=== PATIENT | male | born 1945 | race Caucasian/White ===

== ENCOUNTER 2025-01-19 17:41 | Observation (INO) | payer MEDICARE, OTHER, SELFPAY ==
[2025-01-19] VITALS (10 sets, daily range): BP systolic 111–161; BP diastolic 54–91
--- NOTE | 2025-01-19 11:30 | EDRN ---
Adele Kumar PA in to see pt,.
--- NOTE | 2025-01-19 12:31 | ED.GENMED ---
History of Present Illness
General
Chief Complaint: Malaise
Source: patient
Time Seen by Provider: 01/19/25 11:27
History of Present Illness
History of Present Illness:
79-year-old male with past medical history of atrial fibrillation presenting to the emergency department for evaluation at the request of his primary care provider after patient has been having low-grade fevers for the last week, gradually worsening
malaise and fatigue to the point where patient was having trouble even walking which started over the last 24 hours. Patient reports fever Tmax around 100.4 but has been taking Motrin and ibuprofen every 4-6 hours to stay ahead of the fever there
are no other associated symptoms including URI-like symptoms, nausea, vomiting, abdominal pain, urinary symptoms, bowel changes, chest pain. Patient reports no known sick contacts, recent travel or recent antibiotics. Patient did have COVID about
a month and a half ago. 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 Patient is anticoagulated on Eliquis and reports good with this.
Past History
Past History
ED Past Medical History: Arrthythmia
ED Past Surgical History: None
Social History
Tobacco: Non-smoker
Alcohol: None
Drug: None
Personal:
Living: with family
Review of Systems
Review of Systems
All Other Systems: ROS reviewed and negative except as documented in HPI and ROS
Phy Exam
Physical Exam
Physical Exam:
GENERAL: Alert , in no apparent distress
EYE: pupils equal and reactive
NECK: Supple
ENT: o/p clr, mmm.
CARDIAC: Irregularly irregular, rate controlled between 75 and 86 bpm
LUNGS: Clear breath sounds bilaterally, no acute respiratory distress, no wheezes/rales/rhonchi
ABDOMEN: Soft, without focal tenderness, no r/g, no cvat
NEUROLOGICAL: Alert and oriented
SKIN: Warm and dry, skin intact.
MUSCULOSKELETAL: No edema, well perfused.
PSYCH: Normal and appropriate interaction.
Scores
Heart Failure Risk
Heart Failure Risk Score: Not Applicable
Heart Score for Chest Pain Patients
STEMI patient?: Not applicable
Withdrawal Assessment of Alcohol
Withdrawal Assessment Completed?: Not applicable
Course
Orders/Labs/Results
Orders:
Orders
01/19/25 10:50
Electrocardiogram (*1) Urgent
Reason for Study: Chest Pain
EKG- Treatment ONCE
01/19/25 11:47
Urinalysis Reflex To Culture Urgent
Date Specimen was Collected: 01/19/25
Time Specimen was Collected: 14:33
01/19/25 11:48
CR Chest - 2 Views Urgent
Comment:
Reason For Exam: fever, malaise
01/19/25 12:32
COVID-19 Antigen Urgent
Source: Nasal Swab
Complete Blood Count/With Diff Urgent
Comprehensive Metabolic Panel Urgent
Lactic Acid Q4H
Comment: CANCEL 2nd LACTIC ACID IF 1st LACTIC ACID IS LESS THAN 2
Magnesium Urgent
Comment: ADD ON
TSH Urgent
Blood Culture Q30M
SERVANDO Source: Blood/Venous
Specimen Description:
Influenza A+B Rapid Molecular Urgent
SERVANDO Source: Nasal Swab
Specimen Description:
01/19/25 14:11
Blood Culture Q30M
SERVANDO Source: Blood/Venous
Specimen Description:
01/19/25 15:31
0.9% Sodium Chloride 1000 ml [Nss] 1,000 ml IV BOLUS
01/19/25 16:08
Abdomen/Pelvis w Contrast CT [CT Abd/pelvis W Iv Cont] Urgent
Comment: With IV and oral contrast
Reason For Exam: Fever, diarrhea
01/19/25 16:09
Add On- LAB Urgent
Tests Added?: magnesium
Serum Osmolality Routine
Urine Osmolality Random [Osmolality, Random Urine] Routine
Urine Sodium Routine
STOOL [C difficile Antigen & Toxins] Routine
SERVANDO Source: Feces/Stool
Specimen Description:
Stool Culture Routine
SERVANDO Source: Feces/Stool
Specimen Description:
Stool For WBC Routine
SERVANDO Source: Feces/Stool
Specimen Description:
01/19/25 16:15
0.9% Sodium Chloride 1000 ml [Nss] 1,000 ml IV 80 mls/hr
01/20/25 06:00
TSH Reflex To Free T4 IN AM
Abnormal Lab Results
01/19/25
12:32
Absolute Lymphs (auto) 1.0 L 10^3/uL
(1.2-3.4)
Absolute Monos (auto) 1.0 H 10^3/uL
(0.1-0.6)
Lymphocytes % 13.5 L %
(20.5-51.1)
Monocytes % 13.3 H %
(1.7-9.3)
Sodium 127 L mmol/L
(135-145)
Chloride 94 L mmol/L
(98-107)
Glucose 106 H mg/dl
(70-99)
Total Bilirubin 1.8 H mg/dl
(0.2-1.3)
ALT 66 H U/L
(0-50)
01/19/25 12:32
01/19/25 12:32
Vital Signs
Initial and Last Documented VS:
Initial Vital Signs
Temp Pulse Resp BP Pulse Ox
98.0 F 86 16 118/76 98
01/19/25 10:57 01/19/25 10:57 01/19/25 10:57 01/19/25 10:57 01/19/25 10:57
Last Documented Vital Signs
Temp Pulse Resp BP Pulse Ox
98.0 F 82 23 111/54 98
01/19/25 10:57 01/19/25 15:15 01/19/25 15:15 01/19/25 15:00 01/19/25 15:00
MDM/Problems Addressed
Differential Diagnosis Includes:
COVID, flu, other viral etiology, pneumonia, urinary tract infection, electrolyte derangement, malignancy
MDM/Problems Addressed:
79-year-old male presenting the ER for evaluation of low-grade fevers and generalized malaise over the last week. Over the last 24 hours patient has had some difficulty ambulating due to his weakness. Patient hemodynamically stable here and in no
acute distress. Will check labs including lactic acid and blood cultures. Chest x-ray and urine ordered. Disposition pending.
Chronic conditions affecting care: Arrhythmia
*Pulse Oximetry
Patient hypoxic: no
*Assistant Professor Sculpture Interpretation
Rate: normal
Rhythm: sinus
*Critical Care Note
Total Time (30-74mins, 75-104mins- exclusive of procedures): Not Applicable
Patient Management
Discussion with other providers: Hospitalist
Escalation/DeEscalation of care consider admission/obs:
Patient work up shows normal WBC and hgb. Na+ 127. Urine and CXR negative. Patient unable to ambulate and while attempting to get him to the bathroom patient nearly fell while trying to ambulate on his own. Due to the reported fevers,
weakness/inabiity to ambulate, Na+ 127, will admit for further evaluation and treatment
ED Attending Note
-
Portions of this chart may have been created with voice recognition software.� Occasional wrong word or��sound alike� substitutions may have occurred due to the inherent limitations of voice recognition software.
Discharge Plan
Departure
Patient Disposition: Admit
Date of Disposition: 01/19/25
Time of Disposition: 15:13
Presentation/result/management discussed w/ accepting MD/DO: Hospitalist
Discharge Problem:
Metabolic encephalopathy, Fever, Hyponatremia
Prescriptions:
No Action
atorvastatin [Lipitor] 40 mg Tablet
40 mg PO QPM
amiodarone 200 mg Tablet
200 mg PO BID
spironolacton-hydrochlorothiaz 25-25 mg tablet
1 tab PO DAILY
propranolol 60 mg capsule,extended release 24 hr
180 mg PO DAILY
hydralazine 25 mg Tablet
25 mg PO BID
tamsulosin 0.4 mg capsule
0.8 mg PO QPM
olmesartan [Benicar] 40 mg Tablet
40 mg PO DAILY
potassium citrate 15 mEq tablet extended release
30 meq PO BID
Lumigan 0.01 % Drops
1 drp BOTH EYES HS
Eliquis 5 mg Tablet
5 mg PO BID
acetaminophen [Tylenol Extended Release] 650 mg Tablet Extended Release
1,300 mg PO Q12H
Referrals:
UNKNOWN - PT DOES,NOT KNOW [Unknown Provider]
Interventions
Interventions:
*Risk Screen - Suicide Last Done: 01/19/25 10:57
*General Assessment Last Done: 01/19/25 13:20
*Neglect/Abuse Screening Last Done: 01/19/25 10:57
*ED- Fall Risk Assessment Last Done: 01/19/25 12:53
*ED COVID-19 Vaccine History Last Done: 01/19/25 12:53
Discharge Date and Time
Print Language: LAO
[2025-01-19 12:46] LABS: % Basophils 0.7 % (0-2); % Eosinophils 5.9 % (0-6); % Immature Granulocytes 0.4 % (0-0.5); % Lymphocytes 13.5 % (20.5-51.1); % Monocytes 13.3 % (1.7-9.3); % Neutrophils 66.2 % (42.2-75.2); Absolute Basophils 0.1 10^3/uL (0-0.2); Absolute Eosinophils 0.5 10^3/uL (0-0.7); Hemoglobin 16.5 g/dL (13.0-18.0); Mean Corp Hgb Conc. 34.4 g/dL (33.0-37.0); Mean Corpuscular Hgb 30.8 pg (27.0-31.0); Mean Corpuscular Volume 89.7 fL (80.0-94.0); Mean Platelet Volume 8.9 fL (7.4-10.4); Nucleated Red Blood Cells % 0 % (-); Platelet Count 346 10^3/uL (130-400); Red Blood Cell Count 5.35 10^6/uL (4.70-6.10); Red Cell Dist. Width 13.2 % (11.5-14.5); White Blood Cell Count 7.6 10^3/uL (4.8-10.8)
[2025-01-19 12:56] LABS: Lactic Acid 1.1 mmol/L (0.7-2.0)
[2025-01-19 13:08] LABS: COVID-19 Antigen Negative (Negative)
[2025-01-19 13:12] LABS: ALT (SGPT) 66 U/L (0-50); AST (SGOT) 25 U/L (17-59); Albumin 4.2 g/dl (3.5-5.0); Alkaline Phosphatase 56 U/L (38-126); Blood Urea Nitrogen 17 mg/dl (9-20); Calcium 8.9 mg/dl (8.4-10.2); Carbon Dioxide 26 mmol/L (22-30); Chloride 94 mmol/L (98-107); Estimated Creatinine Clearance 74 ml/min; Glucose 106 mg/dl (70-99); Potassium 4.8 mmol/L (3.5-5.1); Sodium 127 mmol/L (135-145); Total Bilirubin 1.8 mg/dl (0.2-1.3); Total Protein 6.4 g/dl (6.3-8.2); eGFR > 60.00
[2025-01-19 13:39] LABS: TSH 1.36 uIU/ml (0.47-4.68)
--- NOTE | 2025-01-19 13:56 | EDRN ---
Pt per Adele Garcia PA able to take his medications, drink and have crackers. Will attempt urine spec after taking his meds.
--- NOTE | 2025-01-19 14:14 | EDRN ---
Adele Hathaway PA in to see pt.
--- NOTE | 2025-01-19 14:47 | EDRN ---
Pt had ambulated to BR w/ daughter and spouse and per daughter was unsteady and almost fell. On return to stretcher, pt was very unsteady and needed to hold each hand on each one of my arms like a walker to steady his gait. On arising from toilet
this RN caught pt prior to him falling backwards once getting up on his feet. Pt was very unsteady, even at sink when washing hands. Pt had large loose BM on toilet, diarrhea like.
[2025-01-19 14:52] LABS: Urine Albumin Negative (Neg - Trace); Urine Bilirubin Negative (Negative); Urine Character Clear (Clear); Urine Color Yellow; Urine Glucose Negative (Negative); Urine Ketone Negative (Negative); Urine Leukocyte Negative (Negative); Urine Nitrite Negative (Negative); Urine Occult Blood Negative (Negative); Urine Urobilinogen Negative (Neg - 1+)
--- NOTE | 2025-01-19 15:05 | EDRN ---
Pt ambulated to BR w/ max assist of 2 to void and move his bowels. Pt per his daughter almost fell enroute to BR.
--- NOTE | 2025-01-19 15:06 | EDRN ---
Adele VELA was informed pt unable to ambulate safely to BR and lots of stairs in home. He said he will admit.
--- NOTE | 2025-01-19 15:33 | HPS.HSE ---
Family Physician
-
Family Physician: Chace Bonds
Chief Complaint
-
Low-grade fevers x 1 week, 1 episode of watery black stool, ambulatory dysfunction
History of Present Illness
79-year-old male sent by his PCP to the ER after reporting low-grade fevers for the past week along with watery black stool once a day but is on iron, malaise and fatigue with inability to walk over the past 24 hours. He reports a Tmax of 100.4 F
however he has been taking 1000 mg of Tylenol scheduled every 4-6 hours for the past week to stay on top of the fever. I made patient aware of this is the same medication. He denies headache, sore throat, runny nose, abdominal pain, nausea,
vomiting, diarrhea, urinary symptoms, chest pain, palpitations, shortness of breath. He denies sick contacts or recent travel. He does report COVID approximately 1/2 months ago November 2023. He was started on amiodarone 200 mg twice daily on 01/15
along with spironolactone/HCTZ by his quality improvement analyst at [facility] [employer]. He is scheduled to undergo cardioversion next week with his quality improvement analyst after being found back in A-fib recently for which he is anticoagulated on Eliquis with. The patient
has past medical history A-fib, COVID November 2024, CAD status post LAD stenting 90% lesion, Arthritis
Diverticulosis/diverticulitis, Renal calculi-uric acid type, HTN, GERD, Ahmadi's esophagus, Glaucoma, BPH, Renal calculi/uric acid, Atherosclerosis of the aorta, on CT urogram atherosclerosis of the extremities/iliac , Colonic polyps April 04
2416 polyps 3 over 1 cm requiring Endo Clip and biopsy m
Medical History
Past Medical History
Past Medical History: Reports Other
Additional Past Medical History:
Past medical history
A-fib
COVID November 2024
CAD status post LAD stenting 90% lesion
Arthritis
Diverticulosis/diverticulitis
Renal calculi
HTN
GERD
Ahmadi's esophagus
Glaucoma
BPH
Renal calculi/uric acid
Atherosclerosis of the aorta
on CT urogram atherosclerosis of the extremities/iliac
Colonic polyps April 04 2417 polyps 3 over 1 cm requiring Endo Clip and biopsy
Past Surgical History: Reports Other
Additional Past Surgical History:
Umbilical hernia repair
Rotator cuff repair
Endoscopy 01/21/2009
Colonoscopy with colonic polyp removal 06/04/2013 Dr. Clark
Social History
Tobacco: Non-smoker
Alcohol: None
Drug: None
Personal:
Living: With Family ( in home with 13 stairs bedroom second floor has dementia)
Employment: Retired
Family History
Family History: Not pertinent
Allergies / Home Medications
Allergies reflects when Allergies were last updated in [employer].
Home Medications with original date entered in [facility]
Allergy/Medication List:
Allergies
Allergy/AdvReac Type Severity Reaction Status Date / Time
Penicillins Allergy erythema Verified 01/19/25 10:59
multiforme
Home Medications
acetaminophen 650 mg tablet,extended release 1,300 mg PO Q12H 01/19/25
amiodarone 200 mg tablet 200 mg PO BID 01/19/25
apixaban 5 mg tablet (Eliquis) 5 mg PO BID 01/19/25
atorvastatin 40 mg tablet (Lipitor) 40 mg PO QPM 01/19/25
bimatoprost 0.01 % eye drops (Lumigan) 1 drp BOTH EYES HS 01/19/25
hydralazine 25 mg tablet 25 mg PO BID 01/19/25
olmesartan 40 mg tablet (Benicar) 40 mg PO DAILY 01/19/25
potassium citrate 15 mEq (1,620 mg) tablet,extended release 30 meq PO BID 01/19/25
propranolol 60 mg capsule,24 hr,extended release 180 mg PO DAILY 01/19/25
spironolactone 25 mg-hydrochlorothiazide 25 mg tablet 1 tab PO DAILY 01/19/25
tamsulosin 0.4 mg capsule 0.8 mg PO QPM 01/19/25
Review of Systems
-
History Source: Patient and Family (Daughter Sofi at bedside, at bedside)
A 12 point ROS was completed and negative except as noted: Yes
Constitutional: Reports Fever (Low-grade Tmax 100.4 for the past week) and Fatigue; Denies Chills
EENT: Denies Sore Throat or Runny Nose
Respiratory: Denies Cough, Hemoptysis or Trouble Breathing
Cardiac: Denies Chest Pain, Diaphoresis, Palpitations or Syncope
Abdomen/GI: Reports Diarrhea (Watery black on iron once a day past week); Denies Abdominal Pain, Nausea, Vomiting, Constipated, Bloody Stools or Black Stools
: Denies Dysuria, Frequency, Flank Pain, Incontinence, Difficulty Voiding or Urgency
Musculoskeletal: Reports Edema (+2 left lower ankle, +1 right lower ankle); Denies Joint Pain
Skin: Denies Itching or Rash
Neurological: Reports Weakness (Generalized); Denies Dizzy or Headache
Endocrine: Reports No Symptoms
Hematologic/Lymphatic: Reports No Symptoms
Psych: Reports Calm
Physical Exam
Vital Signs
Vital Signs
Temp Pulse Resp BP Pulse Ox
98.0 F 82 23 111/54 98
01/19/25 10:57 01/19/25 15:15 01/19/25 15:15 01/19/25 15:00 01/19/25 15:00
Physical Exam
General: Comfortable and Conversant; No Pain, Fever, Chills or Slurred Speech
HEENT: NormoCephalic, Anicteric, Tracheostomy Collar, PERRLA, No Ptosis and Other (Dry oral mucosa)
Respiratory: Clear; No Wheezes, Rales or Rhonchi
Cardiac: S1/S2, Regular Rhythm and Peripheral Edema (+2 left lower ankle, +1 right lower ankle); No Murmur, Rub or Gallop
Breast: Deferred by me
GI: Soft, Non Tender, Non Distended, Normal Bowel Sounds and No Hepatosplenomegaly
Rectal: Deferred by Provider
Genito-urinary: Deferred by me
Musculoskeletal: No Clubbing, No Cyanosis, Edema, Left Lower Extremity (+2 left lower ankle), Edema, Right Lower Extremity (, +1 right lower ankle) and Other (Per nursing extremely unsteady attempting to walk to the bathroom and very weak recommends
bedside commode); No Edema, Left Upper Extremity or Edema, Right Upper Extremity
Skin: Warm and Dry; No Rash or Jaundice
Neuro: AO x 3, No Motor Deficits (While in bed), Nonfocal/grossly intact, Cranial Nerves Intact and No Sensory Deficits; No DTR's Intact & Symmetrical, Slurred Speech, Facial Droop, Tremors or Sedated
Psych: Calm
Laboratory Results
-
01/19/25 12:32
01/19/25 12:32
Laboratory Results
Lactic Acid Cancelled 01/19/25 14:34
Total Bilirubin 1.8 mg/dl (0.2-1.3) H 01/19/25 12:32
AST 25 U/L (17-59) 01/19/25 12:32
ALT 66 U/L (0-50) H 01/19/25 12:32
Alkaline Phosphatase 56 U/L (38-126) 01/19/25 12:32
Data Reviewed
-
Diagnostic Radiology: Report Reviewed by me
Lab Data: Labs Reviewed by me
Impression/Plan
-
Impression/plan:
Observation telemetry
#Acute febrile illness unclear etiology
#Hx diverticulosis/diverticulitis
#Recent COVID infection November 2024
Tmax at home x 1 week with Tmax 100.4F
- Chest x-ray negative, urinalysis negative, COVID/influenza negative
- Check blood cultures x 2 check stool studies including C. difficile no recent antibiotic
- Tylenol as needed
-IV NSS 80 cc an hour
-Check Tylenol level as he has been taking 1000 mg scheduled every 4-6 hours for the past week
- PT/OT consult
-Will check CT abdomen pelvis with oral and IV contrast due to history of diverticulosis/diverticulitis
-Case management consult
CXR: Lungs appear clear, mild cardiomegaly, no evidence for PE or pleural effusion
EKG: A-fib 81 bpm QTc 446 MS no previous EKGs
#Acute hyponatremia
NA 127
-Check urine osmole, urine NA, serum Osmo, TSH with free T4 reflex
-Urinalysis is negative
-Hold spironolactone/HCTZ-recently started beginning of January
HTN�benign
-Continue Benicar 40 mg p.o. daily with hold parameters, hydralazine 25 mg twice daily with hold parameters, propranolol 60 mg daily
-Hold spironolactone/HCTZ 1 tab daily this was started approximately 1 week ago per daughter
#Chronic A-fib
- TTE March 2019 EF 60-65%
TTE 06/25/2021 EF 60 to 65%
Recurrence of A-fib August 2023 started on DOAC is currently on
Patient is scheduled for outpatient cardioversion next week with [facility] cardiology
-Amiodarone 200 mg twice daily started on 01/15/2025
-Continue Eliquis 5 mg twice daily
#COVID November 2024-did not require inpatient treatment
#CAD status post LAD stenting 90% lesion
-Continue Eliquis 5 mg twice daily, Lipitor 40 mg every afternoon, propranolol 60 mg daily, statin
#GERD/Ahmadi's esophagus
- No current PPI list
#BPH
#Renal calculi/uric acid type
Continue Flomax 0.4 mg p.o. twice daily
- Continue potassium citrate 15 mill equivalents p.o. twice daily
Other PMH:
Arthritis
Glaucoma-continue eyedrops
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
Atherosclerosis of the aorta
Atherosclerosis [place] arteries of extremities iliac atherosclerosis on CT urogram
Multiple colonic polyps March 2024 seventeen 3 over 1 cm requiring Endo [id number] outpatient GI
DVT prophylaxis
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
Patient is DNR with and daughter Sofi who is medical POA at bedside [phone]
--- NOTE | 2025-01-19 15:52 | EDRN ---
Harriet Triplett YACHT MASTER in room w/ pt and family.
[2025-01-19] MEDS: NSS 1000 IV ×2 (15:53→18:19)
--- NOTE | 2025-01-19 16:21 | W.PN.UPDATE ---
Update Note
Progress Note Update
I saw and examined the patient.
The TEST LEAD or PA's note was reviewed and I agree with the note.
Comment: 79-year-old male with past medical history of tremors, atrial fibrillation, Suspected squamous cell skin status post Mohs surgery,hypertension, Diverticulosis/diverticulitis came to the hospital with ongoing low-grade fever along with body
ache, BPH, malaise. Patient had COVID infection last month and since then per daughter has not been feeling good. He went to the PCP who sent him to the ED for evaluation. No fever in the ED. Will use Tylenol only as needed for temp greater than
100.4. Check blood culture. Ops telemetry. Check CT abdomen/pelvis. Stool studies if has diarrhea.UA unremarkable. Chest x-ray without pneumonia.PT evaluation
I spent a total of 67 minutes with the patient or on the floor. More than 50% of this time involved counseling and coordination of care.
[2025-01-19] MEDS: OMNIPAQUE 50 ML PO (17:23)
--- NOTE | 2025-01-19 17:45 | EDRN ---
Pt just ambulated to BR and was throughout ambulation pulling backwards and if this RN did not pull him forward he would have fallen on his back. Pt was not standing up straight, commode placed in room.
[2025-01-19 17:46] LABS: Osmolality Serum 270 mOsm/kg (275-300)
[2025-01-19 17:48] LABS: Acetaminophen < 10 ug/ml (10-30)
--- NOTE | 2025-01-19 18:31 | EDRN ---
Pt still drinking oral CT scan contrast, on cup #2 now. Pt feeling warm so checked temp at this time.
[2025-01-19] MEDS: APRESOLINE PO (19:55)
[2025-01-19] MEDS: LIPITOR PO (19:55)
[2025-01-19] MEDS: ELIQUIS PO (19:55)
[2025-01-19] MEDS: FLOMAX PO (19:55)
[2025-01-19] MEDS: TYLENOL 650 MG PO (20:58)
[2025-01-19] MEDS: PACERONE PO (20:58)
[2025-01-19 21:06] LABS: Osmolality Urine 465 mOsm/kg (300-900)
[2025-01-19] MEDS: NSS IV (21:06)
[2025-01-19 21:21] LABS: Urine Sodium 65 mmol/L (30-90)
[2025-01-19] MEDS: KCL PO (22:08)
[2025-01-19] MEDS: XALATAN OPHTHALMIC SOLUTION BOTH EYES (22:09)
--- NOTE | 2025-01-19 22:50 | PTCARENOTE ---
Pt admitted to 324 from ED. Arrived to room at 1900, ambulated to bed from stretcher with RW and assist x 2. Tele box #19 placed - afib on monitor, rate in 80s. Sent down to CT at 1930. Assessment completed upon return to room. Pt's daughter
reported she had already given her dad his nighttime meds before coming up to the floor - reviewed scheduled meds to administer tonight, reports all were given. Held hospital doses so as not to double dose. Pt with watery stool x 3 before 2300 -
stool and urine specimen sent. Pt forgetful and temp 100.6, hand tremors noted with fever. PRN tylenol administered for fever. Bed alarm placed.
[2025-01-20] VITALS (7 sets, daily range): BP systolic 123–158; BP diastolic 68–99
[2025-01-20 06:12] LABS: % Basophils 0.4 % (0-2); % Eosinophils 3.3 % (0-6); % Immature Granulocytes 0.5 % (0-0.5); % Lymphocytes 13.7 % (20.5-51.1); % Monocytes 12.3 % (1.7-9.3); % Neutrophils 69.8 % (42.2-75.2); Absolute Eosinophils 0.3 10^3/uL (0-0.7); Absolute Lymphocytes 1.1 10^3/uL (1.2-3.4); Absolute Neutrophils 5.7 10^3/uL (1.4-6.5); Hematocrit 45.9 % (39.0-52.0); Hemoglobin 16.1 g/dL (13.0-18.0); Mean Corp Hgb Conc. 35.1 g/dL (33.0-37.0); Mean Corpuscular Hgb 31.1 pg (27.0-31.0); Mean Corpuscular Volume 88.6 fL (80.0-94.0); Mean Platelet Volume 9.2 fL (7.4-10.4); Nucleated Red Blood Cells % 0 % (-); Platelet Count 297 10^3/uL (130-400); Red Blood Cell Count 5.18 10^6/uL (4.70-6.10); Red Cell Dist. Width 13.2 % (11.5-14.5); White Blood Cell Count 8.2 10^3/uL (4.8-10.8)
[2025-01-20 06:41] LABS: ALT (SGPT) 66 U/L (0-50); AST (SGOT) 30 U/L (17-59); Albumin 3.6 g/dl (3.5-5.0); Alkaline Phosphatase 61 U/L (38-126); Blood Urea Nitrogen 13 mg/dl (9-20); Calcium 8.4 mg/dl (8.4-10.2); Carbon Dioxide 24 mmol/L (22-30); Chloride 99 mmol/L (98-107); Estimated Creatinine Clearance 95 ml/min; Glucose 91 mg/dl (70-99); Potassium 4.5 mmol/L (3.5-5.1); Sodium 127 mmol/L (135-145); Total Bilirubin 1.6 mg/dl (0.2-1.3); Total Protein 5.6 g/dl (6.3-8.2); eGFR > 60.00
[2025-01-20 07:09] LABS: TSH Reflex To Free T4 1.32 uIU/ml (0.47-4.68)
[2025-01-20] MEDS: NSS 1000 IV ×2 (07:20→19:25)
[2025-01-20] MEDS: ELIQUIS 5 MG PO ×2 (07:41→21:42)
[2025-01-20] MEDS: BENICAR 40 MG PO (07:41)
[2025-01-20] MEDS: PACERONE 200 MG PO ×2 (07:41→21:42)
[2025-01-20] MEDS: INDERAL LA 180 MG PO (07:41)
[2025-01-20] MEDS: KCL 15 MEQ PO ×2 (07:42→21:42)
[2025-01-20] MEDS: APRESOLINE 25 MG PO ×2 (07:42→21:42)
[2025-01-20 09:32] LABS: Procalcitonin < 0.05 ng/ml (0.0-0.25)
--- NOTE | 2025-01-20 09:39 | CON.ID ---
Consultation
-
Date/Time Consultation Requested: 01/20/2025 0844
Date/Time Consultation Performed: 01/20/202518
Requesting Provider: Dr. Campbell
Performing Provider: Dr. Mcallister
Reason for Consultation: Fever
Chief Complaint / Past History
History of Present Illness
Car Kent is a 79-year-old man being evaluated at the request of Dr. Campbell in regards to fever. History is obtained from chart review, along with patient interview. The patient has a significant past medical history only for atrial
fibrillation, and presents to the ER [facility] yesterday, having been sent in by his PCP for further workup of fevers.
The patient reports that he fell approximately 1 month ago. At that point he tested himself for COVID, and he was found to be positive. He contacted his PCP and was prescribed a course of Paxlovid for 7 days. At that point he recalls feeling
generalized malaise and a lack of energy. He noted a slight improvement for 2 weeks after starting Paxlovid, but notes that he has fallen back into a feeling of generalized malaise. He notes low-grade temperatures, which he notes are in the
98.6-99.9 range. He reports also intermittent feeling of disorientation and difficulty concentrating. Over the past week, though he has not had a return of his fatigue. Outpatient follow-up with his PCP yesterday resulted in him being sent to the
ER.
He denies any headaches. He denies any congestion. He denies any shortness of breath. He reports only rare cough and no sputum production. No nausea is noted. He reports diarrhea for the past 3 days, which he attributes to the recent initiation
of iron supplementation. He denies any abdominal pain.
He denies any recent travel. There are no pets. He denies any rashes. He denies any tick bites. He reports occasional yard work, but otherwise no significant outdoor exposure.
Past History
Additional Past Medical History:
Atrial fibrillation
Hypertension
Dyslipidemia
Additional Past Surgical History:
Umbilical hernia repair
Allergy History:
Penicillins Allergy (Verified 01/19/25 10:59)
erythema multiforme in s
Medications Reviewed: Yes
Current Antibiotics:
None
Social History
Tobacco: Non-Smoker
Alcohol: None
Drug: None
Personal:
Living: With Family
Employment: Retired
Family History
Family History: Not Pertinent
Review of Systems
Vital Signs
Temp Pulse Resp BP Pulse Ox
99 F 81 20 133/85 99
01/20/25 08:10 01/20/25 08:10 01/20/25 08:10 01/20/25 08:10 01/20/25 08:10
Physical Exam
Physical Exam
Constitutional: No Acute Distress, Well Developed, Comfortable and Non-toxic
Head: Normocephalic
Eyes: Pupils Equal, Pupils Round, No Conjunctival Hemorrhage and Sclera Anicteric
Oral: No Thrush and No Ulcers
Cardiovascular: Regular Rate and S1/S2; Negative S3/S4
Pulmonary: Clear; Negative Wheezes, Rales or Rhonchi
Gastrointestinal: Soft, Non Tender, Non Distended and Normal Bowel Sounds
Extremities: Negative Edema, Cyanosis or Erythema
Skin: Warm and Dry; Negative Rash or Jaundice
Neurological: Awake and Alert
Psychological: Calm
.
Lab / Diagnostic Study Results
01/20/25 05:34
01/20/25 05:34
Abs Immat Gran (auto) 0.0 10^3/uL (0-0.05) 01/20/25 05:34
Absolute Neuts (auto) 5.7 10^3/uL (1.4-6.5) 01/20/25 05:34
Absolute Lymphs (auto) 1.1 10^3/uL (1.2-3.4) L 01/20/25 05:34
Absolute Monos (auto) 1.0 10^3/uL (0.1-0.6) H 01/20/25 05:34
Absolute Basos (auto) 0.0 10^3/uL (0-0.2) 01/20/25 05:34
Immature Gran % 0.5 % (0-0.5) 01/20/25 05:34
Neutrophils % 69.8 % (42.2-75.2) 01/20/25 05:34
Lymphocytes % 13.7 % (20.5-51.1) L 01/20/25 05:34
Monocytes % 12.3 % (1.7-9.3) H 01/20/25 05:34
Eosinophils % 3.3 % (0-6) 01/20/25 05:34
Basophils % 0.4 % (0-2) 01/20/25 05:34
Lactic Acid Cancelled 01/19/25 14:34
Microbiology Results
Micro:
01/19/25 20:51 C. difficile GDH Antigen & Toxins - Final
Feces/Stool Negative for toxigenic C.difficile
01/19/25 20:51 Salmonella/Shigella Culture - Pending
Feces/Stool Campylobacter Culture - Pending
Shiga Toxin Test - Pending
Stool Leukocytes - Pending
01/19/25 14:11 Blood Culture - Pending
Blood/Venous
01/19/25 12:32 Influenza Types A & B (GREG) - Final
Nasal Swab Negative for Influenza A & B, NAAT
Negative results must be combined with clinical observations
and patient history.
Nucleic Acid Amplification test (NAAT)performed on the
[employer]UR[employer]IX platform.
01/19/25 12:32 Blood Culture - Pending
Blood/Venous
Imaging:
01/19/2025 CT head: No acute intracranial abnormality noted.
01/19/2025 CT abdomen/pelvis with IV contrast: No CT evidence for acute inflammatory process in the abdomen or pelvis. Small indeterminate lesions in the anterior right hepatic lobe and left renal midpole. Hepatic hemangioma and complex renal cyst
would be the most likely considerations, but findings are noted to be indeterminant this exam. Follow-up MRI is suggested.
01/19/2025 CXR (2 view): No acute infiltrate noted.
Assessment / Plan
Reported fevers
Malaise
Recent COVID-19
Hyponatremia
Elevated bilirubin
Elevated ALT
Atrial fibrillation
Hypertension
Dyslipidemia
Recommendations:
At present, white count noted to be normal, with no left shift, making a bacterial infection somewhat less likely.
Would continue to observe off antibiotics.
C. difficile testing negative; patient can be removed from enhanced precautions.
Await stool culture. Trend bilirubin. Trend LFTs
Follow pending blood cultures.
Further recommendations as additional data is returned.
--- NOTE | 2025-01-20 13:14 | W.PN.HOSP.TC ---
Today's Communication/Plan
-
Monitor vital signs see plan
PT evaluation
ID following
Monitor off antibiotics
Follow fever curve
Gentle hydration
Assessment / Plan
Assessment / Plan
General: Comfortable and Conversant
HEENT: NormoCephalic, Anicteric
Respiratory: Clear; No Wheezes
Cardiac: S1/S2, Regular Rhythm
GI: Soft, Non Tender, Non Distended, Normal Bowel Sounds
Neuro: AO x 3, No Motor Deficits
Psych: Calm
Acute febrile illness unclear etiology
#Hx diverticulosis/diverticulitis
#Recent COVID infection November 2024
Tmax at home x 1 week with Tmax 100.4F
- Chest x-ray negative, urinalysis negative, COVID/influenza negative
- Check blood cultures x 2; C. difficile negative. Follow stool studies. ID evaluation. Pro-Maco negative. Observe off antibiotic
- Tylenol as needed
Gentle hydration
- PT/OT consult
CT abdomen/pelvis with small indeterminate lesion in the anterior right hepatic lobe and left renal midpole. Radiology recommending nonemergent outpatient abdominal MRI.
-Case management consult
CXR: Lungs appear clear, mild cardiomegaly, no evidence for PE or pleural effusion
EKG: A-fib 81 bpm QTc 446 MS no previous EKGs
#Acute hyponatremia
NA 127
Gentle hydration
-Urinalysis is negative
-Hold spironolactone/HCTZ-recently started beginning of January
HTN�benign
-Continue Benicar 40 mg p.o. daily with hold parameters, hydralazine 25 mg twice daily with hold parameters, propranolol 60 mg daily
-Hold spironolactone/HCTZ 1 tab daily this was started approximately 1 week ago per daughter
#Chronic A-fib
- TTE March 2019 EF 60-65%
TTE 06/25/2021 EF 60 to 65%
Recurrence of A-fib August 2023 started on DOAC is currently on
Patient is scheduled for outpatient cardioversion next week with [facility] cardiology
-Amiodarone 200 mg twice daily started on 01/15/2025
-Continue Eliquis 5 mg twice daily
#COVID November 2024-did not require inpatient treatment
#CAD status post LAD stenting 90% lesion
-Continue Eliquis 5 mg twice daily, Lipitor 40 mg every afternoon, propranolol 60 mg daily, statin
#GERD/Ahmadi's esophagus
- No current PPI list
#BPH
#Renal calculi/uric acid type
Continue Flomax 0.4 mg p.o. twice daily
- Continue potassium citrate 15 mill equivalents p.o. twice daily
Other PMH:
Arthritis
Glaucoma-continue eyedrops
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
Atherosclerosis of the aorta
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
Multiple colonic polyps March 2024 seventeen 3 over 1 cm requiring Endo [id number] outpatient GI
DVT prophylaxis
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
Patient is DNR with and daughter Sofi who is medical POA at bedside [phone]
Anticipated Discharge: 24 - 48 hours
Subjective/Interval History
-
Date of Service: January 20, 2025
feeling better
Objective Data
-
Labs:
Laboratory Results
01/20/25
05:34
WBC 8.2
Hgb 16.1
Hct 45.9
Plt Count 297
Sodium 127 L
Potassium 4.5
Chloride 99
Carbon Dioxide 24
BUN 13
Creatinine 0.7
Glucose 91
Calcium 8.4
Total Bilirubin 1.6 H
AST 30
ALT 66 H
Alkaline Phosphatase 61
Vital Signs:
Vital Signs
Temp Pulse Resp BP Pulse Ox
99.4 F 78 20 130/71 99
01/20/25 12:17 01/20/25 12:17 01/20/25 12:17 01/20/25 12:17 01/20/25 12:17
I&O
01/19/25 01/20/25 01/21/25
06:59 06:59 06:59
Intake Total 960 / 960
Output Total 400 / 400
Balance 560 / 560
[2025-01-20] MEDS: TYLENOL 650 MG PO (16:49)
[2025-01-20] MEDS: LIPITOR 40 MG PO (17:42)
[2025-01-20] MEDS: FLOMAX 0.8 MG PO (17:42)
[2025-01-20] MEDS: XALATAN OPHTHALMIC SOLUTION 1 DROP BOTH EYES (22:37)
[2025-01-21 03:39] VITALS: BP 113/72
[2025-01-21 04:55] LABS: % Basophils 0.5 % (0-2); % Eosinophils 2.5 % (0-6); % Immature Granulocytes 0.4 % (0-0.5); % Lymphocytes 15.5 % (20.5-51.1); % Monocytes 12.6 % (1.7-9.3); % Neutrophils 68.5 % (42.2-75.2); Absolute Eosinophils 0.2 10^3/uL (0-0.7); Absolute Lymphocytes 1.2 10^3/uL (1.2-3.4); Absolute Neutrophils 5.3 10^3/uL (1.4-6.5); Hematocrit 42.4 % (39.0-52.0); Hemoglobin 14.9 g/dL (13.0-18.0); Mean Corp Hgb Conc. 35.1 g/dL (33.0-37.0); Mean Corpuscular Hgb 31.2 pg (27.0-31.0); Mean Corpuscular Volume 88.7 fL (80.0-94.0); Mean Platelet Volume 8.9 fL (7.4-10.4); Nucleated Red Blood Cells % 0 % (-); Platelet Count 294 10^3/uL (130-400); Red Blood Cell Count 4.78 10^6/uL (4.70-6.10); Red Cell Dist. Width 13.2 % (11.5-14.5); White Blood Cell Count 7.7 10^3/uL (4.8-10.8)
[2025-01-21 05:19] LABS: ALT (SGPT) 63 U/L (0-50); AST (SGOT) 28 U/L (17-59); Albumin 3.3 g/dl (3.5-5.0); Alkaline Phosphatase 64 U/L (38-126); Blood Urea Nitrogen 13 mg/dl (9-20); Calcium 8.2 mg/dl (8.4-10.2); Carbon Dioxide 24 mmol/L (22-30); Chloride 101 mmol/L (98-107); Estimated Creatinine Clearance 83 ml/min; Glucose 92 mg/dl (70-99); Potassium 4.6 mmol/L (3.5-5.1); Sodium 128 mmol/L (135-145); Total Bilirubin 1.4 mg/dl (0.2-1.3); Total Protein 5.3 g/dl (6.3-8.2); eGFR > 60.00
[2025-01-21 06:00] VITALS: BMI 30.3
[2025-01-21] MEDS: BENICAR 40 MG PO (07:52)
[2025-01-21] MEDS: INDERAL LA 180 MG PO (07:53)
[2025-01-21] MEDS: KCL 15 MEQ PO (07:53)
[2025-01-21] MEDS: ELIQUIS 5 MG PO (07:53)
[2025-01-21] MEDS: PACERONE 200 MG PO (07:53)
[2025-01-21] MEDS: APRESOLINE 25 MG PO (07:54)
[2025-01-21] MEDS: NSS 1000 IV (07:57)
[2025-01-21 08:11] VITALS: BP 119/78
--- NOTE | 2025-01-21 10:47 | W.PN.HOSP.TC ---
Today's Communication/Plan
-
Monitor vital signs see plan
Follow fever curve
Feeling better, no further fever
Discussed with infectious disease, will discharge patient home
Discussed with daughter
Time of discharge 37 minutes
Assessment / Plan
Assessment / Plan
General: Comfortable and Conversant
HEENT: NormoCephalic, Anicteric
Respiratory: Clear; No Wheezes
Cardiac: S1/S2, Regular Rhythm
GI: Soft, Non Tender, Non Distended, Normal Bowel Sounds
Neuro: AO x 3, No Motor Deficits
Psych: Calm
Acute febrile illness unclear etiology
#Hx diverticulosis/diverticulitis
#Recent COVID infection November 2024
Tmax at home x 1 week with Tmax 100.4F
- Chest x-ray negative, urinalysis negative, COVID/influenza negative
- blood cultures x 2 NGTD; C. difficile negative. Follow stool studies. ID following. Pro-Maco negative. Observe off antibiotic. Discussed with infectious disease and will discharge patient home
- Tylenol as needed
- PT/OT consult rec home health
CT abdomen/pelvis with small indeterminate lesion in the anterior right hepatic lobe and left renal midpole. Radiology recommending nonemergent outpatient abdominal MRI.
CXR: Lungs appear clear, mild cardiomegaly, no evidence for PE or pleural effusion
EKG: A-fib 81 bpm QTc 446 MS no previous EKGs
#Acute hyponatremia
NA 128
Gentle hydration
-Urinalysis is negative
-Hold spironolactone/HCTZ-recently started beginning of January
HTN�benign
-Continue Benicar 40 mg p.o. daily with hold parameters, hydralazine 25 mg twice daily with hold parameters, propranolol 60 mg daily
-Hold spironolactone/HCTZ 1 tab daily this was started approximately 1 week ago per daughter
#Chronic A-fib
- TTE March 2019 EF 60-65%
TTE 06/25/2021 EF 60 to 65%
Recurrence of A-fib August 2023 started on DOAC is currently on
Patient is scheduled for outpatient cardioversion next week with [facility] cardiology
-Amiodarone 200 mg twice daily started on 01/15/2025
-Continue Eliquis 5 mg twice daily
#COVID November 2024-did not require inpatient treatment
#CAD status post LAD stenting 90% lesion
-Continue Eliquis 5 mg twice daily, Lipitor 40 mg every afternoon, propranolol 60 mg daily, statin
#GERD/Ahmadi's esophagus
- No current PPI list
#BPH
#Renal calculi/uric acid type
Continue Flomax 0.4 mg p.o. twice daily
- Continue potassium citrate 15 mill equivalents p.o. twice daily
Other PMH:
Arthritis
Glaucoma-continue eyedrops
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
Atherosclerosis of the aorta
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
Multiple colonic polyps March 2024 seventeen 3 over 1 cm requiring Endo [id number] outpatient GI
DVT prophylaxis
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
Patient is DNR with and daughter Sofi who is medical POA at bedside [phone]
Anticipated Discharge: Today
Subjective/Interval History
-
Date of Service: January 21, 2025
denies pain
Objective Data
-
Labs:
Laboratory Results
01/21/25
04:34
WBC 7.7
Hgb 14.9
Hct 42.4
Plt Count 294
Sodium 128 L
Potassium 4.6
Chloride 101
Carbon Dioxide 24
BUN 13
Creatinine 0.8
Glucose 92
Calcium 8.2 L
Total Bilirubin 1.4 H
AST 28
ALT 63 H
Alkaline Phosphatase 64
Vital Signs:
Vital Signs
Temp Pulse Resp BP Pulse Ox
98.5 F 84 22 119/78 99
01/21/25 08:11 01/21/25 08:11 01/21/25 08:11 01/21/25 08:11 01/21/25 08:11
I&O
01/20/25 01/21/25 01/22/25
06:59 06:59 06:59
Intake Total 960 / 960
Output Total 400 / 400
Balance 560 / 560
--- NOTE | 2025-01-21 11:00 | W.DCSUMMARY ---
Discharge Summary
Discharge Data
Date of Admission: 01/19/25
Date of Discharge: 01/21/25
-
Pending Results: No
Hospital Course
79-year-old male with past medical history of diverticulitis, hypertension, atrial fibrillation, recent COVID, CAD status post stent, GERD/Ahmadi's esophagus, BPH, renal calculi, arthritis, glaucoma, squamous cell skin cancer, aorta atherosclerosis
came to the hospital with lethargy, fatigue and ongoing fever. Patient did had a low-grade temp in the hospital. Blood culture continues to be negative. He also had some diarrhea so stool studies were checked which was negative for C. difficile.
Patient was also seen by infectious disease throughout hospitalization. Procalcitonin was also checked which was negative. It was determined the patient symptoms could be secondary to possible viral etiology. CT scan of abdomen/pelvis was done
which showed small indeterminate lesion in the anterior right hepatic lobe and left renal midpole. This was discussed with patient and his daughter. Was advised to get outpatient abdominal MRI. Patient also had hyponatremia which was likely
thought was secondary to hydrochlorothiazide which was stopped. Patient symptoms continue to improve over time. Patient was also evaluated by physical therapy who recommended home health. Once patient symptoms continue to improve and he was
feeling better, he was then discharged home with instructions to follow-up with all his physicians outpatient.
Discharge Plan
-
Patient Disposition: Home (Routine Discharge)
Discharge Diagnosis/Procedures: Acute febrile illness of unclear etiology
Diverticulosis
Acute hyponatremia
Diet: As tolerated
Activity: As tolerated
Driving Restrictions: As prior to admission
Bathing Restrictions: None
Others Tests: abdominal MRI without and with intravenous contrast on a routine outpatient basis
Activity Restrictions/Additional Instructions:
abdominal MRI without and with intravenous contrast on a routine outpatient basis
Please follow-up with your primary care provider for malignancy work
Referrals:
Chace Bonds MD [Family Provider, [facility]] - in less than 1 week
Prescriptions:
Continued
atorvastatin [Lipitor] 40 mg Tablet
40 mg PO QPM
amiodarone 200 mg Tablet
200 mg PO BID
propranolol 60 mg capsule,extended release 24 hr
180 mg PO DAILY
hydralazine 25 mg Tablet
25 mg PO BID
tamsulosin 0.4 mg capsule
0.8 mg PO QPM
olmesartan [Benicar] 40 mg Tablet
40 mg PO DAILY
potassium citrate 15 mEq tablet extended release
30 meq PO BID
Lumigan 0.01 % Drops
1 drp BOTH EYES HS
Eliquis 5 mg Tablet
5 mg PO BID
acetaminophen 650 mg Tablet Extended Release
1,300 mg PO Q12H
Discontinued
spironolacton-hydrochlorothiaz 25-25 mg tablet
1 tab PO DAILY
Discharge Orders:
Discharge Patient (As Directed); Ordered 01/21/25
Ordered By: Luis Antonio Campbell
Discharge Date and Time
Discharge Date/Time: 01/21/25 13:43
Print Language: SERBIAN
--- NOTE | 2025-01-21 11:23 | W.PN.ID1 ---
Date of Service
Date of Service: January 21, 2025
Today's Communication
Observe off antibiotics.
Assessment / Plan
Reported fevers
Malaise
Recent COVID-19
Hyponatremia
Elevated bilirubin
Elevated ALT
Atrial fibrillation
Hypertension
Dyslipidemia
Recommendations:
No further fevers.
Would continue to observe off antibiotics.
No objection to discharge.
Counseled patient (and family via video chat on patient's phone) to monitor temperatures with the same thermometer while at home, and counseled on what constitutes a fever.
Chief Complaint
-: Fever
Subjective / Review of Systems
No recurrence of fevers. Other than feeling occasional fatigue, no other complaints.
Vital Signs / Physical Exam
Vital Signs
Vital Signs
Temp Pulse Resp BP Pulse Ox
98.5 F 84 22 119/78 99
01/21/25 08:11 01/21/25 08:11 01/21/25 08:11 01/21/25 08:11 01/21/25 08:11
Physical Exam
Constitutional: No Acute Distress, Comfortable and Non-toxic
Cardiovascular: S1/S2; Negative S3/S4
Pulmonary: Non Labored
Gastrointestinal: Non Distended
Neurological: Awake and Alert
Psychological: Calm
Objective Data
Lab Data
Lab Results
01/21/25 04:34
01/21/25 04:34
Estimated Creat Clear 83 ml/min 01/21/25 04:34
Lactic Acid Cancelled 01/19/25 14:34
Total Bilirubin 1.4 mg/dl (0.2-1.3) H 01/21/25 04:34
AST 28 U/L (17-59) 01/21/25 04:34
ALT 63 U/L (0-50) H 01/21/25 04:34
Alkaline Phosphatase 64 U/L (38-126) 01/21/25 04:34
Most recent labs reviewed.
Micro Results:
01/19/25 14:11 Blood Culture - Preliminary
Blood/Venous No Growth in 24 hours- Final report to follow
01/19/25 20:51 Salmonella/Shigella Culture - Pending
Feces/Stool Campylobacter Culture - Pending
Shiga Toxin Test - Pending
Stool Leukocytes - Final
01/19/25 12:32 Blood Culture - Preliminary
Blood/Venous No Growth in 24 hours- Final report to follow
01/19/25 20:51 C. difficile GDH Antigen & Toxins - Final
Feces/Stool Negative for toxigenic C.difficile
01/19/25 12:32 Influenza Types A & B (GREG) - Final
Nasal Swab Negative for Influenza A & B, NAAT
Negative results must be combined with clinical observations
and patient history.
Nucleic Acid Amplification test (NAAT)performed on the
[employer] platform.
Imaging:
01/19/2025 CT head: No acute intracranial abnormality noted.
01/19/2025 CT abdomen/pelvis with IV contrast: No CT evidence for acute inflammatory process in the abdomen or pelvis. Small indeterminate lesions in the anterior right hepatic lobe and left renal midpole. Hepatic hemangioma and complex renal cyst
would be the most likely considerations, but findings are noted to be indeterminant this exam. Follow-up MRI is suggested.
01/19/2025 CXR (2 view): No acute infiltrate noted.
Care Review
Plan reviewed with: Physician (Hospitalist)
[2025-01-21 11:26] VITALS: BP 153/77
--- NOTE | 2025-01-21 12:06 | CM ---
Reviewed the chart notes and spoke with the patient at the beside. The patient is admitted under observational status. The [facility] letter was provided and explained. The patient had no questions with regards to the letter.
The patient resides with his spouse in a three story home with one step to enter. The patient reports only DME is a new rollator. The patient reports no VN or SNF in the past. The patient's daughter and spouse will provide transportation home.
CM continues to be available to patient/family and is monitoring medical plan for needs at discharge.
Plan: Discharge to home with no needs.
--- NOTE | 2025-01-21 13:07 | CM ---
CM met with pt's daughter who advised that she is looking to sell her parent's home and find a facility where they can live together, but have help (ie. Assisted Living Facility). Pt's has dementia and concern for elopement is one of the
biggest stressor. [facility] is involved in the home for assistance with pt's .
Pt's daughter provided with the phone number for [employer] [facility] [employer] ([phone]) to call to speak with one of their advisors. Georgia Genao works in the [employer] [facility], so daughter may try to get in touch with her today.
Plan: Pt to return home with ; no identified needs at this time.
== END 2025-01-21 13:43 | disposition home or self-care (01) ==
LOC: 3 WEST ACU 17:41
PROVIDERS: Clinical Nurse Specialist Family Health; Physician Assistant Medical; ADMITTING PHYSICIAN Internal Medicine; CONSULT PHYSICIAN Internal Medicine Infectious Disease; EMERGENCY PHYSICIAN Emergency Medicine; FAMILY PHYSICIAN Family Medicine
DX: R50.9 Fever, unspecified (principal); R53.81 Other malaise; Z79.01 Long term (current) use of anticoagulants; Z11.52 Encounter for screening for COVID-19; I48.20 Chronic atrial fibrillation, unspecified; E87.1 Hypo-osmolality and hyponatremia; I11.9 Hypertensive heart disease without heart failure; K21.9 Gastro-esophageal reflux disease without esophagitis; K22.70 Barrett's esophagus without dysplasia; Z66 Do not resuscitate; Z79.899 Other long term (current) drug therapy; K57.90 Diverticulosis of intestine, part unspecified, without perforation or abscess without bleeding
CPT/HCPCS: 70450; 71046; 74177; 80053; 80143; 81003; 83605; 83735; 83930; 83935; 84145; 84300; 84443; 85025; 87040; 87045; 87046; 87324; 87427; 87449; 87502; 87811; 89055; 93005; 96360; 96361; 97116; 97162; 99285; G0378; Q9967

== ENCOUNTER 2025-01-24 21:33 | Emergency (ER) | payer MEDICARE, OTHER, SELFPAY ==
[2025-01-24 21:39] VITALS: BP 167/107
[2025-01-24 21:41] VITALS: BP 167/107; BMI 29.7
[2025-01-24 22:00] VITALS: BP 167/100
[2025-01-24 22:07] LABS: % Basophils 0.5 % (0-2); % Eosinophils 0.5 % (0-6); % Immature Granulocytes 0.6 % (0-0.5); % Lymphocytes 10.3 % (20.5-51.1); % Monocytes 11.3 % (1.7-9.3); % Neutrophils 76.8 % (42.2-75.2); Absolute Immature Granulocytes 0.1 10^3/uL (0-0.05); Absolute Lymphocytes 0.9 10^3/uL (1.2-3.4); Absolute Neutrophils 6.4 10^3/uL (1.4-6.5); Hemoglobin 16.2 g/dL (13.0-18.0); Mean Corp Hgb Conc. 35.2 g/dL (33.0-37.0); Mean Corpuscular Hgb 31.3 pg (27.0-31.0); Mean Platelet Volume 8.6 fL (7.4-10.4); Nucleated Red Blood Cells % 0 % (-); Platelet Count 330 10^3/uL (130-400); Red Blood Cell Count 5.17 10^6/uL (4.70-6.10); Red Cell Dist. Width 13.5 % (11.5-14.5); White Blood Cell Count 8.4 10^3/uL (4.8-10.8)
--- NOTE | 2025-01-24 22:10 | ED.GENMED ---
History of Present Illness
General
Chief Complaint: Fall
Source: patient, family and ambulance crew
Exam Limitations: none
Time Seen by Provider: 01/24/25 21:59
Nursing documentation reviewed up to this point in time: agreed with
History of Present Illness
History of Present Illness:
79-year-old male with history as noted presents for evaluation of fatigue and fall. Patient was hospitalized here 01/19 until 01/21 for low-grade fever and fatigue. He was seen by infectious disease and it was felt that it was likely viral or
postviral syndrome. He was discharged home. Initially was feeling a little bit stronger after discharge but has had increasing fatigue and weakness since. He still has had occasional low-grade temp of 99 �F and some occasional chills. Tonight he
was in the shower and had a mechanical slip and fall. No serious injuries, no head strike. He was brought to the emergency room to be evaluated given his continued weakness to the point of falling today. Aside from weakness he denies any other
specific complaints such as cough, shortness of breath, abdominal pain, vomiting, diarrhea. Regarding fall�denies any headache, neck pain, back pain, pain in his extremities, rib pain. He is on Eliquis. Family does note that he had COVID a few
weeks ago and wonder if this could be post-COVID syndrome.
Past History
Past History
ED Past Medical History: Arrthythmia
ED Past Surgical History: None
Social History
Tobacco: Non-smoker
Alcohol: None
Drug: None
Personal:
Living: with family
Review of Systems
Review of Systems
All Other Systems: ROS reviewed and negative except as documented in HPI and ROS
Constitutional: Reports fatigue and chills
EENT: Denies sore throat or runny nose
Respiratory: Denies cough or trouble breathing
Cardiac: Denies chest pain, palpitations or syncope
ABD/GI: Denies abdominal pain, nausea, vomiting or diarrhea
: Denies dysuria or flank pain
Musculoskeletal: Denies neck pain or back pain
Neurological: Denies dizzy or headache
Phy Exam
Physical Exam
Physical Exam:
General: Awake, alert, oriented x3 with a GCS 15; no acute distress
Head: Normocephalic, atraumatic
Eyes: Conjunctiva normal, EOMI, pupils equal round and reactive to light bilaterally
Throat: Airway intact, handling secretions, tongue atraumatic
Neck: Trachea midline, no cervical spine tenderness, full range of motion of the cervical spine without pain
Lungs: Clear to auscultation bilaterally, no wheezing, rales, rhonchi
Heart: Regular rate and rhythm, no murmurs, gallops, or rubs; no chest wall tenderness
Abd: Soft, non distended, nontender
Back: No signs of trauma to the back or flank and no tenderness in thoracic or lumbar spine
Neuro: Cranial nerves grossly intact, speech fluid, no gross motor or sensory deficit
Skin: no rash, no signs of trauma
Extremities: Atraumatic, significant no edema in extremities, extremities are warm and well-perfused
Scores
Heart Failure Risk
Heart Failure Risk Score: Not Applicable
Heart Score for Chest Pain Patients
STEMI patient?: Not applicable
Withdrawal Assessment of Alcohol
Withdrawal Assessment Completed?: Not applicable
Course
Orders/Labs/Results
Orders:
Orders
01/24/25 21:53
Electrocardiogram (*1) Urgent
Reason for Study: Other
Other Reason for Exam: Possible Sepsis
Cardiac Monitoring- Treatment ONCE
IV Insert/Care/Rem.- Treatment PRN
Pulse Ox/cont/shift [RESP] Urgent
Quantity: 1
Special Instructions: CONTINUOUS
01/24/25 21:54
EKG- Treatment ONCE
01/24/25 21:55
Complete Blood Count/With Diff Urgent
Comprehensive Metabolic Panel Urgent
Lactic Acid Q4H
Comment: ON ICE, CANCEL 2ND ORDER IF FIRST LACTIC ACID LEVEL <2
01/24/25 22:08
0.9% Sodium Chloride 500 ml [Nss] 500 ml IV BOLUS
01/24/25 22:30
Vital Signs- Treatment ONCE
Frequency: Once
Comment: temperature
01/25/25 02:00
Lactic Acid Q4H
Comment: ON ICE, CANCEL 2ND ORDER IF FIRST LACTIC ACID LEVEL <2
Abnormal Lab Results
01/24/25
21:55
MCH 31.3 H pg
(27.0-31.0)
Abs Immat Gran (auto) 0.1 H 10^3/uL
(0-0.05)
Absolute Lymphs (auto) 0.9 L 10^3/uL
(1.2-3.4)
Absolute Monos (auto) 1.0 H 10^3/uL
(0.1-0.6)
Immature Gran % 0.6 H %
(0-0.5)
Neutrophils % 76.8 H %
(42.2-75.2)
Lymphocytes % 10.3 L %
(20.5-51.1)
Monocytes % 11.3 H %
(1.7-9.3)
Sodium 130 L mmol/L
(135-145)
Glucose 113 H mg/dl
(70-99)
ALT 57 H U/L
(0-50)
01/24/25 21:55
01/24/25 21:55
Vital Signs
Initial and Last Documented VS:
Initial Vital Signs
Pulse Ox
90
01/24/25 21:38
Last Documented Vital Signs
Temp Pulse Resp BP Pulse Ox
36.8 C 79 24 167/100 97
01/24/25 22:30 01/24/25 22:45 01/24/25 22:45 01/24/25 22:01/24/25 22:45
MDM/Problems Addressed
Differential Diagnosis Includes:
Anemia, dehydration, electrolyte derangement, postviral syndrome, viral infection
MDM/Problems Addressed:
79-year-old female presents for evaluation of continued weakness after recent hospitalization. He has had some occasional chills but has not mounted true fever�temp at home around 99 �F. Tonight he did have a slip and fall in the shower although
fortunately did not have any serious injuries or head strike. He is hypertensive but otherwise has normal vital signs here. Physical exam as above. Will plan to check some basic labs including a CBC and a CMP. Check an EKG. Will provide some IV
fluids. At this point no indication for emergent imaging with no signs of injuries on exam, no head strike. Will monitor clinically and reassess after the above.
Labs reviewed: CBC shows no clinically significant abnormalities, CMP shows improving hyponatremia. His EKG shows A-fib with controlled ventricular rate. His blood pressure is normalized on the observation. He feels a bit better after some IV
fluids. I had a long discussion with patient and family. At this point no clear indication for hospitalization however I did offer admission for PT evaluation and potentially consideration for inpatient rehab. Patient prefers to go home and
family feels comfortable with this plan they can provide him support at home and he is already scheduled to have home PT. He also has an MRI scheduled for tomorrow as an outpatient to follow-up on liver lesion noted incidentally on CT. Will plan
for discharge home using shared decision making. All questions answered.
Chronic conditions affecting care:
A-fib on Eliquis complicates fall
Acute Exacerbation and/or Progression of Chronic Illness:
Acutely hypertensive
Acute Exacerbation and/or Progression of Chronic Illness: HTN
*Pulse Oximetry
Patient hypoxic: no (98)
*EKG
Interpreted by ED Provider?: Yes
Comparison EKG: no changes
Heart Rate: 80
Rate: normal
Rhythm: a-fib
[place]: normal axis
Interval: normal interval
QRS Pattern: normal QRS
Ischemia: no ischemia (No acute ischemic changes)
*Critical Care Note
Total Time (30-74mins, 75-104mins- exclusive of procedures): Not Applicable
Data Reviewed
Review of Other/Old Records Reveals: Labs, Records, Radiology Studies and Discharge Summary
Source: patient, records, family and ambulance crew
Further Testing Considered But Not Given:
Considered CT head
Patient Management
Social determinants of health affecting care: Strong social support (Strong social support by his family)
Escalation/DeEscalation of care consider admission/obs:
Considered admission as above�shared decision making opted for discharge
ED Attending Note
-
Portions of this chart may have been created with voice recognition software.� Occasional wrong word or��sound alike� substitutions may have occurred due to the inherent limitations of voice recognition software.
Discharge Plan
Departure
Patient Disposition: Home (Routine Discharge)
Date of Disposition: 01/24/25
Time of Disposition: 23:15
Patient with high blood pressure during this ER visit?: Yes
Discharge Problem:
Weakness
Instructions: Weakness - ED discharge instructions
Prescriptions:
No Action
atorvastatin [Lipitor] 40 mg Tablet
40 mg PO QPM
amiodarone 200 mg Tablet
200 mg PO BID
propranolol 60 mg capsule,extended release 24 hr
180 mg PO DAILY
hydralazine 25 mg Tablet
25 mg PO BID
tamsulosin 0.4 mg capsule
0.8 mg PO QPM
olmesartan [Benicar] 40 mg Tablet
40 mg PO DAILY
potassium citrate 15 mEq tablet extended release
30 meq PO BID
Lumigan 0.01 % Drops
1 drp BOTH EYES HS
Eliquis 5 mg Tablet
5 mg PO BID
acetaminophen 650 mg Tablet Extended Release
1,300 mg PO Q12H
Referrals:
Chace Bonds MD [Family Provider, [facility]] - Follow up in 1 week
Activity Restrictions/Additional Instructions:
Thank you for visiting the Emergency Department at [facility].
1. Please schedule a follow up appointment as directed. Call first thing tomorrow morning to make an appointment.
2. If indicated, please take your medications as instructed and indicated on discharge paperwork.
3. If any of your symptoms do not improve, or persist, or become more severe within 6-12 hours, please return to the emergency department for further care.
4. Please return to the emergency department if you develop a headache, neck pain/stiffness, fever greater than 100.4F, chest pain, shortness of breath, persistent nausea, vomiting, slurred speech, difficulty walking, numbness/tingling, weakness,
signs of infection or any other symptoms that are worrisome to you.
Please call [phone] if you have any questions.
Interventions
Interventions:
*Risk Screen - Suicide Last Done: 01/24/25 21:41
*General Assessment Last Done: 01/24/25 21:41
*Neglect/Abuse Screening Last Done: 01/24/25 21:41
*ED- Fall Risk Assessment Last Done: 01/24/25 22:21
*ED COVID-19 Vaccine History Last Done: 01/24/25 21:41
ED-Musculoskeletal Assessment Last Done: 01/24/25 22:21
ED- Neurological Assessment Last Done: 01/24/25 22:21
ED-Skin Assessment Last Done: 01/24/25 22:21
Discharge Date and Time
Print Language: LIBERIAN
[2025-01-24 22:14] LABS: Lactic Acid 1.5 mmol/L (0.7-2.0)
[2025-01-24 22:15] LABS: ALT (SGPT) 57 U/L (0-50); AST (SGOT) 23 U/L (17-59); Albumin 4.1 g/dl (3.5-5.0); Alkaline Phosphatase 66 U/L (38-126); Blood Urea Nitrogen 13 mg/dl (9-20); Calcium 9.3 mg/dl (8.4-10.2); Carbon Dioxide 26 mmol/L (22-30); Chloride 98 mmol/L (98-107); Estimated Creatinine Clearance 74 ml/min; Glucose 113 mg/dl (70-99); Potassium 4.8 mmol/L (3.5-5.1); Sodium 130 mmol/L (135-145); Total Bilirubin 1.3 mg/dl (0.2-1.3); Total Protein 6.3 g/dl (6.3-8.2); eGFR > 60.00
[2025-01-24] MEDS: NSS 500 IV (22:26)
[2025-01-24 23:00] VITALS: BP 140/80
== END 2025-01-24 23:45 | disposition home or self-care (01) ==
LOC: EMR 21:33
PROVIDERS: EMERGENCY PHYSICIAN Emergency Medicine; FAMILY PHYSICIAN Family Medicine
DX: R53.1 Weakness (principal); W01.0XXA Fall on same level from slipping, tripping and stumbling without subsequent striking against object, initial encounter; I48.91 Unspecified atrial fibrillation; Z79.01 Long term (current) use of anticoagulants
CPT/HCPCS: 99283; 96360; 80053; 83605; 85025; 93005

== ENCOUNTER 2025-01-30 16:29 | Inpatient (IN) | payer MEDICARE, OTHER, SELFPAY ==
[2025-01-30] VITALS (8 sets, daily range): BP systolic 128–170; BP diastolic 84–106
[2025-01-30 12:56] LABS: % Basophils 0.2 % (0-2); % Eosinophils 0.4 % (0-6); % Immature Granulocytes 0.6 % (0-0.5); % Lymphocytes 7.3 % (20.5-51.1); % Neutrophils 79.5 % (42.2-75.2); Absolute Immature Granulocytes 0.1 10^3/uL (0-0.05); Absolute Lymphocytes 0.6 10^3/uL (1.2-3.4); Absolute Neutrophils 6.6 10^3/uL (1.4-6.5); Hemoglobin 16.6 g/dL (13.0-18.0); Mean Corp Hgb Conc. 35.3 g/dL (33.0-37.0); Mean Corpuscular Volume 87.7 fL (80.0-94.0); Mean Platelet Volume 8.4 fL (7.4-10.4); Nucleated Red Blood Cells % 0 % (-); Platelet Count 296 10^3/uL (130-400); Red Blood Cell Count 5.36 10^6/uL (4.70-6.10); Red Cell Dist. Width 13.6 % (11.5-14.5); White Blood Cell Count 8.3 10^3/uL (4.8-10.8)
[2025-01-30 13:08] LABS: ALT (SGPT) 65 U/L (0-50); AST (SGOT) 26 U/L (17-59); Albumin 3.8 g/dl (3.5-5.0); Alkaline Phosphatase 61 U/L (38-126); Blood Urea Nitrogen 12 mg/dl (9-20); Calcium 9.1 mg/dl (8.4-10.2); Carbon Dioxide 25 mmol/L (22-30); Chloride 98 mmol/L (98-107); Glucose 116 mg/dl (70-99); Potassium 4.7 mmol/L (3.5-5.1); Sodium 129 mmol/L (135-145); Total Bilirubin 1.3 mg/dl (0.2-1.3); eGFR > 60.00
--- NOTE | 2025-01-30 13:29 | ED.GENMED ---
History of Present Illness
General
Chief Complaint: Fever
Source: patient
Time Seen by Provider: 01/30/25 12:49
History of Present Illness
History of Present Illness:
Note:
CHIEF COMPLAINT(S)
Weakness, fever, falls, and urinary frequency.
HISTORY OF PRESENT ILLNESS
The patient is a 79-year-old male with a history of diverticulitis, presenting with a persistent fever and weakness. Symptoms began approximately three weeks ago, when the patient reported feeling cold despite being in a warm environment, describing
it as 'hit him like a bolt.' He noted feeling 'wiped out' and experiencing intermittent fevers. Additionally, he has reported frequent urination, particularly at night, urinating up to 11 times. His daughter/POA stated that he has not been eating
and has had episodes of falling. He denies specific pain or new joint issues but mentions general weakness. There are no reports of rash, vision changes, double vision, or new neck pain. The patient has prior abdominal imaging which initially showed
some findings, and MRI was ordered to assess if there is a drainable liver abscess.
ADDITIONAL HISTORY OBTAINED FROM SOURCES OTHER THAN THE PATIENT
According to the patient�s spouse, approximately three weeks ago, the patient began feeling cold. The daughter also indicated concern about the patient�s poor appetite, weakness, and recent falls.
SOCIAL HISTORY
The patient is generally active, though currently more limited due to weakness. There was no recent travel or exposure risk.
REVIEW OF SYSTEMS
- General: Weakness, lack of appetite, frequent urination.
- Respiratory: No shortness of breath.
- Cardiovascular: History of atrial fibrillation, currently feeling irregular heartbeat.
- Gastrointestinal: No abdominal pain.
- Neurological: No headache, dizziness, or new neck pain. Some improvement in neck mobility over the past few months.
- Genitourinary: Frequent urination, especially at night.
PHYSICAL EXAM
- General: Appears weak, sitting up with effort.
- Cardiovascular: Irregular heart rhythm noted.
- Abdominal: No tenderness upon palpation; bladder does not feel distended manually.
- Neurological: More mobility in the neck compared to previous weeks; no pain on neck movement.
Nursing notes reviewed and vital signs reviewed.
PLAN
1. Conduct urine analysis and bladder scan to evaluate post-void residual.
2. Repeat Lyme disease testing alongside other relevant blood tests.
3. Maintain current prescription of blood thinners.
Past History
Past History
ED Past Medical History: Arrthythmia
ED Past Surgical History: None
Social History
Tobacco: Non-smoker
Alcohol: None
Drug: None
Personal:
Living: with family
Phy Exam
Physical Exam
Physical Exam:
see above
Course
Orders/Labs/Results
Orders:
Orders
01/30/25 12:47
CMP [Comprehensive Metabolic Panel] Urgent
Complete Blood Count/With Diff Urgent
Lyme Progressive Urgent
Comment: ADD ON
Blood Parasites Urgent
SERVANDO Source: B
Specimen Description:
Comment: ADD ON
01/30/25 13:23
STOOL [C difficile Antigen & Toxins] Urgent
SERVANDO Source: Feces/Stool
Specimen Description:
Stool Culture Urgent
SERVANDO Source: Feces/Stool
Specimen Description:
01/30/25 13:28
Add On- LAB Urgent
Tests Added?: Babesia smear, Lyme progressive
01/30/25 13:35
Blood Culture Q30M
SERVANDO Source: Blood/Venous
Specimen Description:
Blood Culture Q30M
SERVANDO Source: Blood/Venous
Specimen Description:
01/30/25 14:38
Urinalysis Reflex To Culture Urgent
Date Specimen was Collected: 01/30/25
Time Specimen was Collected: 14:37
Abnormal Lab Results
01/30/25
12:47
Abs Immat Gran (auto) 0.1 H 10^3/uL
(0-0.05)
Absolute Neuts (auto) 6.6 H 10^3/uL
(1.4-6.5)
Absolute Lymphs (auto) 0.6 L 10^3/uL
(1.2-3.4)
Absolute Monos (auto) 1.0 H 10^3/uL
(0.1-0.6)
Immature Gran % 0.6 H %
(0-0.5)
Neutrophils % 79.5 H %
(42.2-75.2)
Lymphocytes % 7.3 L %
(20.5-51.1)
Monocytes % 12.0 H %
(1.7-9.3)
Sodium 129 L mmol/L
(135-145)
Glucose 116 H mg/dl
(70-99)
ALT 65 H U/L
(0-50)
Total Protein 6.0 L g/dl
(6.3-8.2)
01/30/25 12:47
01/30/25 12:47
Vital Signs
Initial and Last Documented VS:
Initial Vital Signs
Temp Pulse Resp BP Pulse Ox
98.2 F 85 16 133/85 97
01/30/25 12:07 01/30/25 12:07 01/30/25 12:07 01/30/25 12:07 01/30/25 12:07
Last Documented Vital Signs
Temp Pulse Resp BP Pulse Ox
98.2 F 81 26 148/97 97
01/30/25 12:07 01/30/25 15:30 01/30/25 15:30 01/30/25 15:00 01/30/25 15:30
MDM/Problems Addressed
Differential Diagnosis Includes:
Reported fever.
Weakness, tremor, falls
Consider viral illness versus Lyme versus UTI versus electrolyte abnormality versus general deconditioning.
There is a lesion noted on the most recent CT of the abdomen which was followed up by MRI. MRI was done at [facility] and the family has not heard results about this yet. Blood cultures have been negative. Will recheck test today. Per the
daughter's description, patient is very weak and cannot ambulate in the and is tremulous. He has been falling frequently. May be a candidate for admission either way for work with physical therapy and potential placement
*Pulse Oximetry
Patient hypoxic: no
Comment: 97%
*Critical Care Note
Total Time (30-74mins, 75-104mins- exclusive of procedures): Not Applicable
Update Note
Update Note:
Vital signs remained stable here. Labs showed normal white count afebrile. After long discussion with patient and daughter, the patient has been weak with his intermittent fevers to the point where he is following. He does not feel safe at home
because of the falls. Will admit for further
ED Attending Note
-
Portions of this chart may have been created with voice recognition software.� Occasional wrong word or��sound alike� substitutions may have occurred due to the inherent limitations of voice recognition software.
Discharge Plan
Departure
Patient Disposition: Admit
Date of Disposition: 01/30/25
Time of Disposition: 15:37
Presentation/result/management discussed w/ accepting MD/DO: Hospitalist
Discharge Problem:
Fever, Falls, Weakness
Prescriptions:
No Action
atorvastatin [Lipitor] 40 mg Tablet
40 mg PO QPM
amiodarone 200 mg Tablet
200 mg PO BID
propranolol 60 mg capsule,extended release 24 hr
180 mg PO DAILY
hydralazine 25 mg Tablet
25 mg PO BID
tamsulosin 0.4 mg capsule
0.8 mg PO QPM
olmesartan [Benicar] 40 mg Tablet
40 mg PO DAILY
potassium citrate 15 mEq tablet extended release
30 meq PO BID
Lumigan 0.01 % Drops
1 drp BOTH EYES HS
Eliquis 5 mg Tablet
5 mg PO BID
acetaminophen 650 mg Tablet Extended Release
1,300 mg PO Q12H
Referrals:
Chace Bonds MD [Family Provider, [facility]]
Interventions
Interventions:
*Risk Screen - Suicide Last Done: 01/30/25 12:07
*General Assessment Last Done: 01/30/25 12:51
*Neglect/Abuse Screening Last Done: 01/30/25 12:07
*ED- Fall Risk Assessment Last Done: 01/30/25 12:51
*ED COVID-19 Vaccine History Last Done: 01/30/25 12:51
ED- Neurological Assessment Last Done: 01/30/25 12:51
ED-Skin Assessment Last Done: 01/30/25 12:51
Discharge Date and Time
Print Language: OCCITAN
[2025-01-30 15:09] LABS: Urine Albumin Negative (Neg - Trace); Urine Bilirubin Negative (Negative); Urine Character Clear (Clear); Urine Color Yellow; Urine Glucose Negative (Negative); Urine Ketone Negative (Negative); Urine Leukocyte Negative (Negative); Urine Nitrite Negative (Negative); Urine Occult Blood Negative (Negative); Urine Urobilinogen 1+ (Neg - 1+)
--- NOTE | 2025-01-30 15:49 | HPS.HSE ---
Family Physician
-
Family Physician: Chace Bonds
Chief Complaint
-
fever, weakness
History of Present Illness
79-year-old male with a history of diverticulitis, A-fib,CAD status post LAD stenting 90% lesion,Arthritis,Diverticulosis/diverticulitis,Renal calculi,HTN,GERD,Ahmadi's esophagus,Glaucoma, BPH,Renal calculi ,Atherosclerosis of the aorta presenting
with three weeks of fever,weakness.last night he spiked fever of 101. he is been nauseous and daily diarrhea once a day. denied abdominal pain.denied TRISTAN, dizzy or syncope. he is cold all the time. denied dysuria but he is voiding 10-11 times at
time. he is with poor appetite. he is not eating or drinking. he lost about 10lbs in three weeks. he is extremely weak. he is off balance and been falling. he is shuffling his feet when walking.
MRI was obtained last week for the follow up of liver lesions which has not read yet as per his PCP.
Lab aggressive, blood parasites, stool C. difficile and stool culture and blood culture sent from ER. Babesia smear was also sent from ER.
Admitted for further management
Medical History
Past Medical History
Past Medical History: Reports Other
Additional Past Medical History:
A-fib
COVID November 2024
CAD status post LAD stenting 90% lesion
Arthritis
Diverticulosis/diverticulitis
Renal calculi
HTN
GERD
Ahmadi's esophagus
Glaucoma
BPH
Renal calculi/uric acid
Atherosclerosis of the aorta
on CT urogram atherosclerosis of the extremities/iliac
Colonic polyps April 04 2417 polyps 3 over 1 cm requiring Endo Clip and biopsy
Past Surgical History: Reports Other
Additional Past Surgical History:
Umbilical hernia repair
Rotator cuff repair
Endoscopy 01/21/2009
Colonoscopy with colonic polyp removal 06/04/2013 Dr. Clark
Social History
Tobacco: Non-smoker
Alcohol: None
Drug: None
Personal:
Living: With Family
Family History
Family History: Not pertinent
Allergies / Home Medications
Allergies reflects when Allergies were last updated in [facility].
Home Medications with original date entered in [facility]
Allergy/Medication List:
Allergies
Allergy/AdvReac Type Severity Reaction Status Date / Time
Penicillins Allergy erythema Verified 01/19/25 10:59
multiforme
Home Medications
acetaminophen 650 mg tablet,extended release 1,300 mg PO Q12H Pain 01/19/25
apixaban 5 mg tablet (Eliquis) 5 mg PO BID Blood Clot Prevention/Tx 01/19/25
bimatoprost 0.01 % eye drops (Lumigan) 1 drp BOTH EYES HS Eye Condition 01/19/25
hydralazine 25 mg tablet 25 mg PO BID Blood Pressure 01/19/25
olmesartan 40 mg tablet (Benicar) 40 mg PO QPM Blood Pressure 01/19/25
potassium citrate 15 mEq (1,620 mg) tablet,extended release 30 meq PO BID Electrolyte Repletion 01/19/25
propranolol 60 mg capsule,24 hr,extended release 180 mg PO DAILY Blood Pressure 01/19/25
tamsulosin 0.4 mg capsule 0.8 mg PO DAILY Urinary Issue 01/19/25
atorvastatin 40 mg tablet (Lipitor) 40 mg PO DAILY 01/30/25
Review of Systems
-
Constitutional: Reports Fever and Fatigue
EENT: Reports No Symptoms
Respiratory: Reports No Symptoms
Cardiac: Reports No Symptoms
Abdomen/GI: Reports Diarrhea
: Reports Difficulty Voiding
Musculoskeletal: Reports No Symptoms
Skin: Reports No Symptoms
Neurological: Reports Weakness
Endocrine: Reports No Symptoms
Hematologic/Lymphatic: Reports No Symptoms
Psych: Reports No Symptoms
Physical Exam
Vital Signs
Vital Signs
Temp Pulse Resp BP Pulse Ox
98.2 F 81 26 148/97 97
01/30/25 12:07 01/30/25 15:30 01/30/25 15:30 01/30/25 15:00 01/30/25 15:30
Physical Exam
General: Well Developed, Well Nourished and No Apparent Distress
HEENT: NormoCephalic, Moist mucous membranes and Atraumatic
Respiratory: Clear
Cardiac: S1/S2 and Regular Rhythm; No Murmur or Rub
GI: Soft, Non Tender, Non Distended and Normal Bowel Sounds; No Organomegaly
Rectal: Deferred by Provider
Musculoskeletal: No Clubbing, No Cyanosis and No Edema
Skin: No Rash
Neuro: AO x 3 and Nonfocal/grossly intact
Psych: Calm
Laboratory Results
-
01/30/25 12:47
01/30/25 12:47
Laboratory Results
Total Bilirubin 1.3 mg/dl (0.2-1.3) 01/30/25 12:47
AST 26 U/L (17-59) 01/30/25 12:47
ALT 65 U/L (0-50) H 01/30/25 12:47
Alkaline Phosphatase 61 U/L (38-126) 01/30/25 12:47
Data Reviewed
-
Lab Data: Labs Reviewed by me
Impression/Plan
-
# Fever/weakness and falls unclear cause
- UA negative
- Lyme pending
- Blood parasite pending
- Stool for C. difficile pending, stool culture
- Blood culture sent from ER
-Babesia smear sent from ER
-PT/OT consulted
# Hyponatremia likely hypovolemic
- Sodium 129
-normal saline continued
-BMP in am
HTN�benign
-Continue Benicar 40 mg p.o. daily with hold parameters, hydralazine 25 mg twice daily with hold parameters, propranolol 60 mg daily
#Chronic A-fib
- TTE March 2019 EF 60-65%
TTE 06/25/2021 EF 60 to 65%
-Amiodarone 200 mg twice daily
-Continue Eliquis 5 mg twice daily
-obtain EKG
#CAD status post LAD stenting 90% lesion
-Continue Eliquis 5 mg twice daily, Lipitor 40 mg every afternoon, propranolol 60 mg daily, statin
#GERD/Ahmadi's esophagus
- No current PPI list
#HLD
-Lipitor continued
#BPH
#Renal calculi/uric acid type
Continue Flomax 0.4 mg p.o. twice daily
- Continue potassium citrate 15 mill equivalents p.o. twice daily
Other PMH:
Arthritis
Glaucoma-continue eyedrops
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
Atherosclerosis of the aorta
Atherosclerosis [place] arteries of extremities iliac atherosclerosis on CT urogram
Multiple colonic polyps March 2024 seventeen 3 over 1 cm requiring Endo [id number] outpatient GI
DVT prophylaxis
Continue [employer] Eliquis
--- NOTE | 2025-01-30 17:18 | W.PN.UPDATE ---
Update Note
Progress Note Update
MRI from outpatient with the impression of 1.5 cm hemangioma in segment 5 of the right hepatic lobe. 0.7 cm cystic lesion in the inferior pancreatic hard. This will be followed with MRI/MRCP examination in 1 year. Small renal cortical cysts.
Left atrial enlargement. 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 vasular consulted.
[2025-01-30] MEDS: NSS 1000 IV (18:47)
--- NOTE | 2025-01-30 18:53 | W.PN.UPDATE ---
Update Note
Progress Note Update
This is an addendum to H&P written by Ines Fonseca on 01/30/2025. Patient seen and examined independently with RECEIVING WEIGHER.
79-year-old male past medical history of diverticulitis, hypertension, atrial fibrillation on Eliquis, CAD status post send, GERD/Ahmadi's esophagus, BPH, renal calculi, arthritis, glucoma, squamous cell skin cancer, aortic atherosclerosis
presenting with fever, weakness, nausea, diarrhea, weight loss, increased urinary frequency, shuffling gait and falling. No travel history. No joint pain or rashes.
Patient MRI done as outpatient last week at [facility] with result not available yet.
No artificial hardware valves.
Urinalysis unremarkable.
CT scan from 01/19 shows no acute inflammatory process.
Outpatient MRI abdomen shows 1.5 cm hemangioma in segment 5 of the right hepatic lobe, 0.7 cm cystic lesion in the inferior pancreatic head, small renal cortical cyst. Left atrial enlargement. 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
mesenteric arteries.
Unclear etiology of symptoms. Stool studies pending. Lyme test, blood parasites pending. Blood cultures pending. IV fluids. Hold off on antibiotics for now. Do not think high-grade stenosis of the celiac/superior mesenteric arteries as the
source of his symptoms but will consult vascular. given some abdominal symptoms.
--- NOTE | 2025-01-30 19:35 | PTCARENOTE ---
Patient admitted to [facility] from ED into room 2138. Patient AAOX3, vitals taken by tech stable, manual BP taken by this RN 160/98 RUE. Patient assist x1 stand and pivot to bed from stretcher, generalized weakness, mild tremors noted. Patient afib on
tele monitor. Admission completed with assistance of daughter/POA at bedside, daughter states recent significant weight loss/falls at home; alarm in place, nutrition consult and PT screening placed by this RN. IVF infusing through R FA IV, patient
oriented to room and call hanna. Patient enhanced precautions for outstanding stool sample, patient and daughter aware of need for sample.
[2025-01-30] MEDS: ELIQUIS 5 MG PO (20:54)
[2025-01-30] MEDS: XALATAN OPHTHALMIC SOLUTION 1 DROP BOTH EYES (20:54)
[2025-01-30] MEDS: APRESOLINE 25 MG PO (20:54)
[2025-01-30] MEDS: UROCIT-K 30 MEQ PO (20:54)
[2025-01-30] MEDS: BENICAR 40 MG PO (20:54)
[2025-01-31] VITALS (8 sets, daily range): BP systolic 141–165; BP diastolic 70–105; BMI 28.6
--- NOTE | 2025-01-31 04:40 | DOWNTIME ---
Addendum entered by Deirdre Aponte RN 01/31/25 14:21:
Correction: There was a [employer] Binder Operator Downtime on 01/31/2025 from 0100 to 01/31/2025 at 0415.
Original Note:
There was a [employer]her [employer]inder Operator Downtime on 01/30/2025 from 0100 to 01/31/2025 at 0415. Downtime documentation of patient's care, including medication administrations, has been reconciled in the electronic record per guidelines. Refer to the
patient's paper chart under the miscellaneous tab to see printed paper medication records and downtime forms.
[2025-01-31 08:05] LABS: Blood Urea Nitrogen 9 mg/dl (9-20); Calcium 8.4 mg/dl (8.4-10.2); Carbon Dioxide 26 mmol/L (22-30); Chloride 99 mmol/L (98-107); Estimated Creatinine Clearance 84 ml/min; Glucose 91 mg/dl (70-99); Potassium 4.2 mmol/L (3.5-5.1); Sodium 129 mmol/L (135-145); eGFR > 60.00
[2025-01-31] MEDS: NSS 1000 IV ×2 (08:38→20:11)
[2025-01-31] MEDS: INDERAL LA 180 MG PO (08:40)
[2025-01-31] MEDS: LIPITOR 40 MG PO (08:40)
[2025-01-31] MEDS: UROCIT-K 30 MEQ PO ×2 (08:40→20:06)
[2025-01-31] MEDS: APRESOLINE 25 MG PO ×2 (08:41→20:06)
[2025-01-31] MEDS: FLOMAX 0.8 MG PO (08:41)
[2025-01-31] MEDS: ELIQUIS 5 MG PO ×2 (08:41→20:06)
--- NOTE | 2025-01-31 09:37 | W.PN.HOSP.TC ---
Today's Communication/Plan
-
see bold
Assessment / Plan
Assessment / Plan
HPI: 79-year-old male past medical history of diverticulitis, hypertension, atrial fibrillation on Eliquis, CAD status post send, GERD/Ahmadi's esophagus, BPH, renal calculi, arthritis, glucoma, squamous cell skin cancer, aortic atherosclerosis
presenting with fever, weakness, nausea, diarrhea, weight loss, increased urinary frequency, shuffling gait and falling. No travel history. No joint pain or rashes.
Patient MRI done as outpatient last week at [facility] with result not available yet.
No artificial hardware valves.
Urinalysis unremarkable.
CT scan from 01/19 shows no acute inflammatory process.
Outpatient MRI abdomen shows 1.5 cm hemangioma in segment 5 of the right hepatic lobe, 0.7 cm cystic lesion in the inferior pancreatic head, small renal cortical cyst. Left atrial enlargement. 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
mesenteric arteries.
#Recurrent low-grade fever
UA negative, parasite smear negative
Has not had diarrhea since the ER, unable to send stool studies
Daughter is highly concerned about diverticulitis
Recent CT of the abdomen and pelvis on 01/19 is negative for diverticulitis
Patient denies abdominal pain
Daughter reports nausea, diarrhea at home
Consult GI
Follow-up on Lyme, stool cultures if patient is having stools
#Weakness
PT/OT recommend short-term rehab
#Hyponatremia likely hypovolemic
Fluid restrict, trend sodium
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
Appreciate vascular surgery input, patient denies postprandial symptoms
Recommend outpatient follow-up
#Essential hypertension
Continue Benicar 40 mg p.o. daily with hold parameters, hydralazine 25 mg twice daily with hold parameters, propranolol 60 mg daily
#Chronic A-fib
TTE 06/25/2021 EF 60 to 65%
Continue amiodarone, Eliquis
#CAD status post LAD stenting 90% lesion
Continue Eliquis 5 mg twice daily, Lipitor 40 mg every afternoon, propranolol 60 mg daily, statin
#GERD/Ahmadi's esophagus
No current PPI listed
#HLD
Continue statin
#BPH
#Renal calculi/uric acid type
Continue Flomax 0.4 mg p.o. twice daily
Continue potassium citrate 15 mill equivalents p.o. twice daily
Other PMH:
Arthritis
Glaucoma-continue eyedrops
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
Atherosclerosis of the aorta
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
Multiple colonic polyps March 2024 seventeen 3 over 1 cm requiring Endo [id number] outpatient GI
DVT prophylaxis�Eliquis
DNR
Discussed patient's case extensively with his daughter on the phone 01/31
Total time spent to see the patient on the floor, examine the patient, review data and lab results, discuss treatment plan with patient, nursing staff around 51 minutes.
Physical Exam
General: No acute distress
HEENT: Normocephalic, Atraumatic, EOMI, MMM
Respiratory: Clear to Auscultation bilaterally
Cardiac: Normal S1/S2, Regular Rate and Rhythm
GI: Soft, Nontender, Nondistended, Normal Bowel Sounds
Extremities: No Clubbing, Cyanosis, or Edema
Neuro: Nonfocal/Grossly Intact
Psych: Calm, Cooperative
Anticipated Discharge: 24 - 48 hours
Subjective/Interval History
-
Date of Service: January 31, 2025
Patient continues to have low-grade fever. Daughter states that he had diarrhea in the ER yesterday. Daughter is highly concerned about diverticulitis. Per nursing report, patient has had no diarrhea, no vomiting, no belly pain.
Objective Data
-
Labs:
Laboratory Results
01/31/25
06:46
Sodium 129 L
Potassium 4.2
Chloride 99
Carbon Dioxide 26
BUN 9
Creatinine 0.7
Glucose 91
Calcium 8.4
Vital Signs:
Vital Signs
Temp Pulse Resp BP Pulse Ox
98.8 F 79 17 148/86 96
01/31/25 08:56 01/31/25 08:56 01/31/25 08:56 01/31/25 08:56 01/31/25 08:56
I&O
01/30/25 01/31/25 02/01/25
06:59 06:59 06:59
Intake Total 1410 / 1410
Output Total 1000 / 1000
Balance 410 / 410
--- NOTE | 2025-01-31 10:03 | CON.VAS ---
Consultation
Consultation Request
Date/Time Consultation Performed: 01/31/25 0900
Requesting Provider: Hospitalist
Performing Provider: Lynsey Gonzalez, ANGELICA-C for Cedric Prater M.D.
Reason for Consultation: Incidental finding of celiac and SMA stenosis
Medical History
-
Chief Complaint: Febrile with accompanying weakness/malaise and unintentional weight loss
History of Present Illness:
This is a 79-year-old male with significant past medical history for GERD, hypertension, atrial fibrillation who presented to [facility] on 01/30/2025 intermittent fever, malaise, decreased appetite, and loose stools over the past month. He endorses
that he has been recently evaluated at [place] for infectious workup with no clear source identified and subsequent discharge, now presented with sinus symptoms have not improved, he had an incidental finding on CAT scan of SMA and celiac stenosis
resulting in vascular consultation. He does endorse recent roughly 15 pound weight loss that was unintentional but he states this is from lack of appetite. He denies abdominal pain, food fearing, and postprandial pain. He is able to eat he notes
without any difficulty whatsoever. Denies rest pain or claudication. Denies prior history of requiring vascular invention.
Past Medical History
Past Medical History: Arrhythmias (Atrial fibrillation), CAD, GERD, HTN and Other (COVID, arthritis, diverticulosis/diverticulitis, renal calculi, Ahmadi's esophagus, glaucoma, BPH, atherosclerosis of the aorta, colonic polyps)
Past Surgical History: Other (Umbilical hernia repair, rotator cuff repair, endoscopy, colonoscopy)
Social History
Tobacco: Former Smoker (Smoked for total of 10 years and quit in the 1960s)
Alcohol: None
Drug: None
Personal:
Living: With Family
Allergies / Home Medications
Allergy/AdvReac Type Severity Reaction Status Date / Time
Penicillins Allergy erythema Verified 01/19/25 10:59
multiforme
�Medication �Instructions �Recorded �Confirmed �Type
acetaminophen 650 mg 1,300 mg PO Q12H Pain 01/19/25 01/30/25 History
tablet,extended release
apixaban 5 mg tablet (Eliquis) 5 mg PO BID Blood Clot 01/19/25 01/30/25 History
Prevention/Tx
bimatoprost 0.01 % eye drops 1 drp BOTH EYES HS Eye Condition 01/19/25 01/30/25 History
(Lumigan)
hydralazine 25 mg tablet 25 mg PO BID Blood Pressure 01/19/25 01/30/25 History
olmesartan 40 mg tablet (Benicar) 40 mg PO QPM Blood Pressure 01/19/25 01/30/25 History
potassium citrate 15 mEq (1,620 30 meq PO BID Electrolyte Repletion 01/19/25 01/30/25 History
mg) tablet,extended release
propranolol 60 mg capsule,24 180 mg PO DAILY Blood Pressure 01/19/25 01/30/25 History
hr,extended release
tamsulosin 0.4 mg capsule 0.8 mg PO DAILY Urinary Issue 01/19/25 01/30/25 History
atorvastatin 40 mg tablet (Lipitor) 40 mg PO DAILY High Cholesterol 01/30/25 01/30/25 History
Review of Systems
-
History Source: Patient
Constitutional: Reports Fever, Weight Loss and Fatigue
EENT: Reports No Symptoms
Respiratory: Reports No Symptoms
Cardiac: Reports No Symptoms
Vascular: Denies Leg Pain / Claudication
Abdomen/GI: Reports No Symptoms
: Reports No Symptoms
Musculoskeletal: Reports No Symptoms
Skin: Reports No Symptoms
Neurological: Reports No Symptoms
Endocrine: Reports No Symptoms
Physical Exam
Vital Signs
Temp Pulse Resp BP Pulse Ox
98.8 F 79 17 148/86 96
01/31/25 08:56 01/31/25 08:56 01/31/25 08:56 01/31/25 08:56 01/31/25 08:56
Lab Results
01/30/25 12:47
01/31/25 06:46
Physical Exam
General: No Apparent Distress
HEENT: Normocephalic, Anicteric and Atraumatic
Respiratory: Non Labored Respirations
Cardiac: Negative JVD
GI: Soft, Non Tender and Non Distended
Musculoskeletal: No Edema
Skin: Warm and Dry
Neuro: AO x 3
Psych: Calm
Pulses: Bilateral Femoral: +1, Left Dorsalis Pedis: +2 and Right Dorsalis Pedis: +1
Assessment / Plan
-
Assessment: 79-year-old male admitted for febrile workup and hyponatremia with incidental finding of stenosis of celiac and SMA.
Plan:
Given patient is asymptomatic, low likelihood of requiring surgical intervention, final plan per attending.
I performed this shared service with the attending. I evaluated the patient [id number] and have entered clinical documentation as shown in the encounter note. I performed the following component(s):�history and physical exam. Note that medical
decision making is not final until attested by vascular attending.
--- NOTE | 2025-01-31 10:56 | W.PN.UPDATE ---
Update Note
Progress Note Update
Seen and examined with CERTIFIED PROCEDURAL CODER. Full consultation to follow. 79-year-old male presents with generalized weakness/tiredness. Also had fever. Patient notes poor appetite, does not have the same appetite he had prior. However when he eats he has no
postprandial pain. He is able to eat he notes without any difficulty whatsoever. Has no abdominal pain otherwise.
We were asked to evaluate regarding CT scan of the abdomen/pelvis findings regarding the mesenteric vessels.
On exam/he is awake and alert. Head is normocephalic and atraumatic. He is in no acute distress. Breathing is unlabored. Abdomen is soft, nondistended, nontender. Lower extremity with 2+ femoral and pedal pulses palpable bilaterally. Feet are
both pink and warm and well-perfused (right 2+ PT, left 2+ DP).
CT scan reviewed. Not a CT angiogram but rather a standard CT abdomen/pelvis with 5 mm cuts. There is a shelf of plaque at the origin of the celiac artery. Moderate plaque extending into the SMA as well. Difficult to say whether there is any
celiac artery occlusive plaque at the origin or more likely just a plaque in the vicinity. Cannot see the origin based on these 5 mm cuts. Similar issue with the SMA though the flow lumen is patent though may have a at least mild to moderate
stenosis.
Plan/ Possible stenosis of the SMA and celiac. However difficult to say based on CT scan 5 mm thickness cuts and not time for arterial phase. If any concern for chronic mesenteric ischemia, would favor CT angiogram of the abdomen/pelvis. However,
the patient has no postprandial symptoms. No concern really here clinically for mesenteric artery related symptoms. Therefore I do not know that it is imperative that he get a CT scan at this time. He can follow-up with us in the office in 3
months with duplex imaging. Will sign off. If any concern for chronic mesenteric ischemia, would obtain CT angiogram of the abdomen/pelvis with fine cuts and can reconsult.
[2025-01-31 11:00] LABS: COVID-19 Antigen Negative (Negative)
--- NOTE | 2025-01-31 13:22 | CM ---
Reviewed the chart notes and spoke with the patient at the bedside. The patient was recently hospitalized (01/19-01/21) for fever. The patient resides with his spouse in a multi-level home with one step to enter. The patient has a rollator, shower
chair, and rails in home. The patient reports no VN or SNF in the past. The patient confirmed his pharmacy of choice is [facility] [address] [place]. CM continues to be available to patient/family and is monitoring medical plan for needs at
discharge.
Plan: Discharge plans will depend on patient's progress.
[2025-01-31] MEDS: BENICAR 40 MG PO (17:04)
--- NOTE | 2025-01-31 17:40 | PTCARENOTE ---
Patient AAOX3, no confusion noted this shift but patient forgetful with flat affect, alarms in place but patient making no attempts to get up independently. Patient assist x1RW, slow gait with hand tremors - MD aware. Patient denies any nausea or
abd discomfort this shift, no BM - outstanding stool studies noted. IVF infusing, CC #25 short draining yellow urine.
[2025-01-31] MEDS: TYLENOL 650 MG PO (20:09)
[2025-01-31] MEDS: XALATAN OPHTHALMIC SOLUTION 1 DROP BOTH EYES (21:31)
--- NOTE | 2025-01-31 22:43 | PTCARENOTE ---
Doug Hayes notified about fever and blood cx results in progress, growing gram pos bacilli. tylenol given, IVF renewed.
[2025-02-01 03:13] VITALS: BP 155/91
[2025-02-01 07:16] LABS: Hematocrit 45.8 % (39.0-52.0); Mean Corp Hgb Conc. 34.9 g/dL (33.0-37.0); Mean Corpuscular Hgb 30.9 pg (27.0-31.0); Mean Corpuscular Volume 88.6 fL (80.0-94.0); Mean Platelet Volume 8.7 fL (7.4-10.4); Platelet Count 235 10^3/uL (130-400); Red Blood Cell Count 5.17 10^6/uL (4.70-6.10); Red Cell Dist. Width 13.5 % (11.5-14.5); White Blood Cell Count 8.6 10^3/uL (4.8-10.8)
[2025-02-01 07:48] VITALS: BP 146/75
[2025-02-01 07:54] LABS: Blood Urea Nitrogen 9 mg/dl (9-20); Calcium 8.4 mg/dl (8.4-10.2); Carbon Dioxide 25 mmol/L (22-30); Chloride 101 mmol/L (98-107); Estimated Creatinine Clearance 84 ml/min; Glucose 91 mg/dl (70-99); Potassium 4.1 mmol/L (3.5-5.1); Sodium 129 mmol/L (135-145); eGFR > 60.00
[2025-02-01] MEDS: FLOMAX 0.8 MG PO (09:28)
[2025-02-01] MEDS: INDERAL LA 180 MG PO (09:28)
[2025-02-01] MEDS: LIPITOR 40 MG PO (09:28)
[2025-02-01] MEDS: ELIQUIS 5 MG PO ×2 (09:28→19:41)
[2025-02-01] MEDS: UROCIT-K 30 MEQ PO ×2 (09:28→19:41)
[2025-02-01] MEDS: APRESOLINE 25 MG PO ×2 (09:29→19:42)
[2025-02-01] MEDS: NSS IV (09:56)
--- NOTE | 2025-02-01 10:01 | PHA.VAN.IN ---
Assessment
- Assessment
Renal Function: Appears similar to baseline
Concomitant Antimicrobials: None
AUC Dosing Plan
- Dosing Variables
Dosing Weight (kg): 85.4
Dosing CrCl (ml/min): 84
Vd coefficient (L/kg): 0.7
- Empiric Dosing
Initial / Loading Dose: 2000mg
Maintenance Regimen: 1000 mg IV Q12H
Estimated AUC (mcg*h/mL): 468
Estimated Peak (mcg*h/mL): 28.4
Estimated Trough (mcg/ml): 12.6
Estimated Half Life (H): 9.3
- Monitoring
No levels ordered at this time: Consider when at steady state with current regimen
Pharmacokinetics Vancomycin I
- -
Patient Age: 79
Patient Sex: Male
Vancomycin Day #: 1
Indication: Bacteremia
Requesting Provider: Dr. Mandujano
Pertinent Antimicrobial Allergies:
Penicillins - erythema multiforme
Height / Weight:
Height 5 ft 8 in
Actual Weight 85.445 kg
Pertinent Past Medical History: Diverticulitis
- Vital Signs / Lab Results
Temp Pulse Resp BP Pulse Ox
98.7 F 79 18 146/75 98
02/01/25 07:48 02/01/25 07:48 02/01/25 07:48 02/01/25 09:28 02/01/25 07:48
Lab Results - Hematology
01/30/25 02/01/25
12:47 06:59
WBC 8.3 8.6
Lab Results - Chemistry
01/30/25 01/31/25 02/01/25
12:47 06:46 06:59
BUN 12 9 9
Creatinine 0.7 0.7 0.7
Estimated Creat Clear 84 84
Albumin 3.8
Lab Results - Urine
01/30/25
14:38
Urine Nitrite (Reflex) Negative
Leukocyte Esterase Rfl Negative
Microbiology Results
01/30/25 13:35 Blood Culture - Preliminary
Blood/Venous Positive culture in progress
01/30/25 13:35 Blood Culture - Preliminary
Blood/Venous No Growth in 24 hours- Final report to follow
01/30/25 15:52 Blood Parasites Smear - Final
Blood/Venous
01/31/25 10:06 Influenza Types A & B (GREG) - Final
Nasal Swab Negative for Influenza A & B, NAAT
Negative results must be combined with clinical observations
and patient history.
Nucleic Acid Amplification test (NAAT)performed on the
[employer] platform.
[2025-02-01 11:24] VITALS: BP 122/76
[2025-02-01] MEDS: VANCOCIN 540 MG IV (11:29)
[2025-02-01 11:55] VITALS: BP 123/81; PULSE 94
--- NOTE | 2025-02-01 12:05 | CON.GI ---
Addendum entered and electronically signed by Lebron Nicolas MD 02/01/25 17:26:
The patient was seen and examined by me independently in collaboration with the nurse practitioner.
Past medical history/social history/medications/allergies/family history reviewed.
Lab data and imaging data reviewed.
79 yo M pmh as below with recent admission 01/19 with fatigue, fever, diarrhea, had stool studies negative at that point, CT at that point with indeterminate renal lesions had follow up MRI at [facility] after with panc cyst recommend repeat mri 1 year,
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 On d/w nurse patient having 1-2 loose stools a day. Per patient able to now tolerate food. Per daughter at
bedside patient abdominal distension better. Patient denies any abdominal pain. Vascular surgery saw him for with findings on MRI but felt symptoms not typical for chronic mesenteric ischemia but if any concerns recommend further imaging. Overall
GI symptoms improving. No need for further work up at this time. Spoke with family at bedside and left additional voicemail for Sofi.
GI will sign off at this time please call with ?s.
Original Note:
Consultation
-
Date/Time Consultation Requested: 01/31/25 1730
Date/Time Consultation Performed: 02/01/25 1130
Requesting Provider: Dr. Fracisco Kellogg
Performing Provider: Dr. Nicolas/DANYELLE Appiah
Reason for Consultation: recent nausea, decreased po intake and diarrhea
Medical History
Chief Complaint / HPI
Chief Complaint: malaise, fatigue
History of Present Illness:
79-year-old male with past medical history of CAD status post stent, chronic A-fib (on Eliquis), hypertension, GERD with Ahmadi's esophagus (last EGD 2 years ago [facility]), colon polyps (17 polyps removed 2023 due for repeat colonoscopy, [facility]), BPH, renal calculi, glaucoma, squamous cell skin cancer status post Mohs, diverticulosis (2 years ago), hyponatremia (daughter states that this dates back at least 2 years), with recent admission 01/19/2025 with fatigue, fever and diarrhea.
During that admission stool studies were negative. Procalcitonin was also negative. Blood cultures were negative. It was felt that this was viral in etiology. CT of the abdomen and pelvis performed at that time showed small indeterminate lesion
in the anterior right hepatic lobe and left renal midpole. Patient had outpatient MRI performed at [facility] (1.5 cm hemangioma in segment 5 of the right hepatic lobe. 0.7 cm cystic lesion in the inferior pancreatic head. Followed up with MRI/MRCP
in 1 year. Small renal cortical cyst. Left atrial enlargement. 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 He presented back to the hospital as his daughter Sofi states that he had decreased p.o. intake. The patient himself states that he
felt malaise and fatigue. The daughter states that he was not eating as much as she usually does. He was having loose bowel movements at least once a day. He has not had a bowel movement in 2 days. He has also had issues with balance. You are
asked to evaluate as the daughter was concerned as he has a prior history of 'diverticulitis'. The daughter Sofi asked that I speak to her prior to seeing the patient. I did call her and discussed with her at length. She wanted to give me his
past medical history as he has never been treated by GI at [facility]. The patient has a longstanding history of Ahmadi's esophagus treating at [facility] and was on PPI therapy she is omeprazole for many years. This was stopped
approximately 1 year ago as they felt that this may be reducing the effectiveness of some of his medications and causing lethargy. He was not prescribed any other PPI therapy after this. His last episode of diverticulitis was approximately 2022.
He had his last routine colonoscopy in March 2024 where they removed '17 polyps and he had diverticulosis'. He is due for repeat colonoscopy at this time. He had no episodes of diverticulitis since that time. She is concerned that he has
diverticulitis because the last time he was admitted for that he had a change in the way of lethargy, fatigue that he 'was not himself'. We did discuss that fevers, lethargy and fatigue can be associated with many etiologies and not necessarily
just diverticulitis. She states that he was not complaining of any abdominal pain. He did not complain of nausea per se however had a decreased appetite. He was not eating or drinking much at the home. Currently the patient denies any fevers,
chills, nausea, vomiting, melena, hematochezia, dysphagia or odynophagia. He does admit that he did not have much of an appetite. He denies any early satiety. He states that he ate 100% of his breakfast which was eggs and fruit. He also states
that he just went for a walk. He denies any acholic stools or bilirubinuria. WBC 8.6, hemoglobin 16.0, hematocrit 45.8, platelets 235, sodium 129, potassium 4.1, BUN 9, creatinine 0.7, glucose 91, total bilirubin 1.3, AST 26, ALT 65, alk phos 61,
albumin 3.8. COVID-negative. Lyme screen pending. Blood smear for parasites negative. Flu negative. 1 of 2 additional blood cultures came back positive (gram-positive bacilli) . Patient started on vancomycin. Repeat cultures pending. ID
consulted.
Past Medical History
Past Medical History: Other (CAD status post stent, chronic A-fib, hypertension, GERD, Ahmadi's esophagus, colon polyps, BPH, renal calculi, glaucoma, squamous cell skin cancer, diverticulosis, diverticulitis, hyponatremia, right hepatic lobe
hemangioma, 0.7 cm cystic lesion inferior pancreatic head, high-grade stenosis celiac)
Past Surgical History: Other (Umbilical hernia repair, rotator cuff repair)
Social History
Tobacco: Non-Smoker
Alcohol: Occasional (1 a month)
Drug: None
Personal:
Living: With Family
Employment: Retired
Family History
Family History: Other (Family history gastrointestinal malignancy or IBD)
Allergies / Home Medications
Allergy/AdvReac Type Severity Reaction Status Date / Time
Penicillins Allergy erythema Verified 01/19/25 10:59
multiforme
�Medication �Instructions �Recorded
acetaminophen 650 mg 1,300 mg PO Q12H Pain 01/19/25
tablet,extended release
apixaban 5 mg tablet (Eliquis) 5 mg PO BID Blood Clot 01/19/25
Prevention/Tx
bimatoprost 0.01 % eye drops 1 drp BOTH EYES HS Eye Condition 01/19/25
(Lumigan)
hydralazine 25 mg tablet 25 mg PO BID Blood Pressure 01/19/25
olmesartan 40 mg tablet (Benicar) 40 mg PO QPM Blood Pressure 01/19/25
potassium citrate 15 mEq (1,620 30 meq PO BID Electrolyte Repletion 01/19/25
mg) tablet,extended release
propranolol 60 mg capsule,24 180 mg PO DAILY Blood Pressure 01/19/25
hr,extended release
tamsulosin 0.4 mg capsule 0.8 mg PO DAILY Urinary Issue 01/19/25
atorvastatin 40 mg tablet (Lipitor) 40 mg PO DAILY High Cholesterol 01/30/25
Review of Systems
-
All other systems: A 12 pt ROS was Negative except as stated above in HPI
Vital Signs
Temp Pulse Resp BP Pulse Ox
98.1 F 89 16 122/76 97
02/01/25 11:24 02/01/25 11:24 02/01/25 11:24 02/01/25 11:24 02/01/25 11:24
Physical Exam
Exam
General: No Apparent Distress
HEENT: Anicteric
Respiratory: Clear
Cardiac: Irregular Rhythm
GI: Soft, Non Tender, Non Distended and Normal Bowel Sounds
Skin: Warm and Dry
Neuro: AO x 3 (Forgetful of names)
Psych: Calm
Results
WBC 8.6 10^3/uL (4.8-10.8) 02/01/25 06:59
Hgb 16.0 g/dL (13.0-18.0) 02/01/25 06:59
Hct 45.8 % (39.0-52.0) 02/01/25 06:59
MCV 88.6 fL (80.0-94.0) 02/01/25 06:59
Plt Count 235 10^3/uL (130-400) D 02/01/25 06:59
Absolute Neuts (auto) 6.6 10^3/uL (1.4-6.5) H 01/30/25 12:47
Sodium 129 mmol/L (135-145) L 02/01/25 06:59
Potassium 4.1 mmol/L (3.5-5.1) 02/01/25 06:59
Chloride 101 mmol/L (98-107) 02/01/25 06:59
Carbon Dioxide 25 mmol/L (22-30) 02/01/25 06:59
BUN 9 mg/dl (9-20) 02/01/25 06:59
Creatinine 0.7 mg/dL (0.7-1.3) 02/01/25 06:59
Calcium 8.4 mg/dl (8.4-10.2) 02/01/25 06:59
Total Bilirubin 1.3 mg/dl (0.2-1.3) 01/30/25 12:47
AST 26 U/L (17-59) 01/30/25 12:47
ALT 65 U/L (0-50) H 01/30/25 12:47
Alkaline Phosphatase 61 U/L (38-126) 01/30/25 12:47
Diagnostic Image Results:
[facility] with the impression of '1.5 cm hemangioma in segment 5 of the right hepatic lobe. 0.7 cm cystic lesion in the inferior pancreatic hard. This will be followed with MRI/MRCP examination in 1 year. Small renal
cortical cysts. Left atrial enlargement. High-grade stenosis of the celiac and superior mesenteric arteries'.
CT Abd pelvis with IC contrast 01/19/25:
No CT evidence for an acute inflammatory process in the abdomen or pelvis.
Small indeterminate lesions in the anterior right hepatic lobe and in the left renal midpole. A hepatic hemangioma and complex renal cyst would be the most likely considerations, but findings are indeterminate on this exam. If the patient has had
previous abdominal imaging elsewhere, direct comparison could be performed to confirm stability. Otherwise, a follow-up abdominal MRI without and with intravenous contrast on a routine outpatient basis would be suggested.
Prior GI Procedures:
EGD 2022 ([facility]) 'Avinash' Records unavailble to us.
EGD: 01/2016 (Dr. Ruvalcaba) - Normal examined duodenum.
- Erythematous mucosa in the antrum. Biopsied.
- Ahmadi's esophagus. Biopsied.
- Non-bleeding esophageal ulcer. Biopsied.
EGD 11/19/2014 (Dr. Ruvalcaba) - Normal examined duodenum. Biopsied.
- Normal stomach. Biopsied.
- No endoscopic esophageal abnormality to explain
patient's dysphagia. Biopsied.
Colonoscopy: Colonic polyps April 04 2024 (Dr. Clark-> [facility]) 17 polyps 3 over 1 cm. Repeat due.
Colonoscopy with colonic polyp removal 06/04/2013 Dr. Clark
Assessment / Plan
-
79-year-old male with past medical history of CAD status post stent, chronic A-fib (on Eliquis), hypertension, GERD with Ahmadi's esophagus (last EGD 2 years ago [facility]), colon polyps (17 polyps removed 2023 due for repeat colonoscopy, [facility]), BPH, renal calculi, glaucoma, squamous cell skin cancer status post Mohs, diverticulosis (2 years ago), hyponatremia (daughter states that this dates back at least 2 years), with recent admission 01/19/2025 with fatigue, fever and diarrhea.
During that admission stool studies were negative. Procalcitonin was also negative. Blood cultures were negative. It was felt that this was viral in etiology. CT of the abdomen and pelvis performed at that time showed small indeterminate lesion
in the anterior right hepatic lobe and left renal midpole. Patient had outpatient MRI performed at [facility] (1.5 cm hemangioma in segment 5 of the right hepatic lobe. 0.7 cm cystic lesion in the inferior pancreatic head. Followed up with MRI/MRCP
in 1 year. Small renal cortical cyst. Left atrial enlargement. 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 He presented back to the hospital as his daughter Sofi states that he had decreased p.o. intake. The patient himself states that he
felt malaise and fatigue. The daughter states that he was not eating as much as she usually does. He was having loose bowel movements at least once a day. He has not had a bowel movement in 2 days. He has also had issues with balance. You are
asked to evaluate as the daughter was concerned as he has a prior history of 'diverticulitis'. He does not complain of nausea per se however had a decreased appetite. He was not eating or drinking much at the home. Currently the patient denies any
fevers, chills, nausea, vomiting, melena, hematochezia, dysphagia or odynophagia. He does admit that he did not have much of an appetite. He denies any early satiety. He states that he ate 100% of his breakfast which was eggs and fruit. He also
states that he just went for a walk. He denies any acholic stools or bilirubinuria. WBC 8.6, hemoglobin 16.0, hematocrit 45.8, platelets 235, sodium 129, potassium 4.1, BUN 9, creatinine 0.7, glucose 91, total bilirubin 1.3, AST 26, ALT 65, alk
phos 61, albumin 3.8. COVID-negative. Lyme screen pending. Blood smear for parasites negative. Flu negative. 1 of 2 additional blood cultures came back positive (gram-positive bacilli) . Patient started on vancomycin. Repeat cultures pending.
ID consulted. He continues on Eliquis for Afib.
Impression:
Fevers, low grade
--> one postive BC
--> started on Vanco, repeat cultures pending
Malaise/Fatigue
Poor po intake
--> patient states eating better now
--> albumin good
Weight loss
--> 85 kg from 89 kg 10 days ago.
Loose stools-> no BM since admission
Barretts esophagus/GERD-> patient off PPI x 1 year, will not go back on (concern about decreased effectiveness of meds with Omeprazole) agreeable for Pepcid
Hx multiple colon polyps, due for repeat colonoscopy-> follow up with primary GI ([facility])
Plan:
-Discussed with patient and daughter Sofi [phone] (at length)
-Patient does not want to go on PPI. Will add Pepcid 20 mg BID
-Hold on repeat CT with oral and IV contrast for now as patient without any abdominal pain and has started eating.
-ID consulted, positive BC x 1.
-If with diarrhea, stool studies
-Needs follow up with primary GI on DC.
-Further recommendations to be forthcoming.
-
-
Thank you for consultation and allowing me to participate in the patient's care. Please call the healthcare economics manager GI physician during the after hours with any questions or concerns.
[2025-02-01 13:28] LABS: Lyme Antibody Screen, EIA Negative (Negative)
--- NOTE | 2025-02-01 13:42 | W.PN.HOSP.TC ---
Today's Communication/Plan
-
Start IV vancomycin
Consult ID
Assessment / Plan
Assessment / Plan
HPI: 79-year-old male past medical history of diverticulitis, hypertension, atrial fibrillation on Eliquis, CAD status post send, GERD/Ahmadi's esophagus, BPH, renal calculi, arthritis, glucoma, squamous cell skin cancer, aortic atherosclerosis
presenting with fever, weakness, nausea, diarrhea, weight loss, increased urinary frequency, shuffling gait and falling. No travel history. No joint pain or rashes.
Patient MRI done as outpatient last week at [facility] with result not available yet.
No artificial hardware valves.
Urinalysis unremarkable.
CT scan from 01/19 shows no acute inflammatory process.
Outpatient MRI abdomen shows 1.5 cm hemangioma in segment 5 of the right hepatic lobe, 0.7 cm cystic lesion in the inferior pancreatic head, small renal cortical cyst. Left atrial enlargement. 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
mesenteric arteries.
#Recurrent fever
UA negative, parasite smear negative
Has not had diarrhea since the ER, small loose bowel movement
Daughter is highly concerned about diverticulitis
Recent CT of the abdomen and pelvis on 01/19 is negative for diverticulitis
Patient denies abdominal pain. Daughter reports nausea, diarrhea at home
GI consulted. Will repeat stool cultures, last stool cultures on 01/19 were negative
1 out of 2 blood cultures growing diphtheroids�will add ID consult
He received IV vancomycin in the morning, repeat blood cultures, start IV erythromycin
Follow-up on Lyme, repeat stool cultures, last stool cultures on 01/19 were negative
#Weakness
PT/OT recommend short-term rehab
#Hyponatremia likely hypovolemic
Fluid restrict, trend sodium
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
Appreciate vascular surgery input, patient denies postprandial symptoms
Recommend outpatient follow-up
#Essential hypertension
Continue Benicar 40 mg p.o. daily with hold parameters, hydralazine 25 mg twice daily with hold parameters, propranolol 60 mg daily
#Chronic A-fib
TTE 06/25/2021 EF 60 to 65%
Continue amiodarone, Eliquis
#CAD status post LAD stenting 90% lesion
Continue Eliquis 5 mg twice daily, Lipitor 40 mg every afternoon, propranolol 60 mg daily, statin
#GERD/Ahmadi's esophagus
No current PPI listed
#HLD
Continue statin
#BPH
#Renal calculi/uric acid type
Continue Flomax 0.4 mg p.o. twice daily
Continue potassium citrate 15 mill equivalents p.o. twice daily
Other PMH:
Arthritis
Glaucoma-continue eyedrops
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
Atherosclerosis of the aorta
Atherosclerosis [place] arteries of extremities iliac atherosclerosis on CT urogram
Multiple colonic polyps March 2024 seventeen 3 over 1 cm requiring Endo [id number] outpatient GI
DVT prophylaxis�Eliquis
DNR
Discussed patient's case extensively with his daughter on the phone 01/31
Total time spent to see the patient on the floor, examine the patient, review data and lab results, discuss treatment plan with patient, nursing staff around 50 minutes.
Physical Exam
General: No acute distress
HEENT: Normocephalic, Atraumatic, EOMI, MMM
Respiratory: Clear to Auscultation bilaterally
Cardiac: Normal S1/S2, Regular Rate and Rhythm
GI: Soft, Nontender, Nondistended, Normal Bowel Sounds
Extremities: No Clubbing, Cyanosis, or Edema
Neuro: Nonfocal/Grossly Intact
Psych: Calm, Cooperative
Anticipated Discharge: 24 - 48 hours
Subjective/Interval History
-
Date of Service: February 01, 2025
Patient seen and examined in the morning. He denies nausea, denies vomiting. Denies abdominal pain. Nursing staff reports a soft loose bowel movement in the afternoon. He did have a fever with temperature of 100.4 yesterday evening. Denies
chest pain, denies shortness of breath.
Objective Data
-
Labs:
Laboratory Results
02/01/25
06:59
WBC 8.6
Hgb 16.0
Hct 45.8
Plt Count 235 D
Sodium 129 L
Potassium 4.1
Chloride 101
Carbon Dioxide 25
BUN 9
Creatinine 0.7
Glucose 91
Calcium 8.4
Vital Signs:
Vital Signs
Temp Pulse Resp BP Pulse Ox
98.7 F 79 18 146/75 98
02/01/25 07:48 02/01/25 07:48 02/01/25 07:48 02/01/25 07:48 02/01/25 07:48
I&O
01/31/25 02/01/25 02/02/25
06:59 06:59 06:59
Intake Total 1410 / 1410 2400 / 2400
Output Total 1000 / 1000 1450 / 1450
Balance 410 / 410 950 / 950
--- NOTE | 2025-02-01 14:52 | CM ---
Reviewed the chart notes and spoke with the patient at the bedside. PT/OT recommendation for home health at discharge. Discuss VN agencies. Patient agreeable to VN at discharge. CM continues to be available to patient/family and is
monitoring medical plan for needs at discharge.
Plan: Discharge to home when medically stable with VN services.
[2025-02-01] MEDS: ERYTHROCIN 105 MG IV (14:55)
[2025-02-01 15:42] VITALS: BP 152/95
--- NOTE | 2025-02-01 15:49 | VNURNOTE ---
Home Health Liaison met with patient at bedside to discuss [facility] nurse/therapy, visits, schedule and homebound status. Patient is agreeable and understands that visits at home will be 2-3 x per week to assess and teach medical management. Patient is
aware that [facility] will contact them for start of care in 1-2 days after discharge from .
[facility] referral accepted in [facility].
--- NOTE | 2025-02-01 17:08 | CON.ID ---
Consultation
-
Date/Time Consultation Requested: 02/01/2025 0800
Date/Time Consultation Performed: 02/01/2025 1700
Requesting Provider: Dr. Kellogg
Performing Provider: Dr. Mcallister
Reason for Consultation: Fevers
Chief Complaint / Past History
History of Present Illness
Car Kent is a 79-year-old man being evaluated at the request of Dr. Kellogg in regards to fevers. History is obtained from chart review, along with patient interview.
The patient is known to the Infectious Diseases service, having been seen on a recent admission dated 01/19/2025. In review, the patient has a significant past medical history for atrial fibrillation and presented to the ER at that time, having been
sent in by his PCP for further workup of reported fevers.
Patient had fallen approximately 1 month prior. At that point, he was found to be COVID-positive, and he was prescribed a course of Paxlovid by his PCP. At that point he had had generalized malaise and lack of energy, but he noted a slight
improvement for 2 weeks after starting Paxlovid. At his prior admission he had fallen back into a feeling of generalized malaise. 'Low-grade' temperature were noted, in the range of 98.6 to 99.9 degrees. Intermittent feelings of disorientation
and difficulty concentrating were also reported.
During that hospitalization, no further fevers were noted, and antibiotics were discontinued. Cultures from that admission, including C. difficile, stool cultures and blood cultures were all negative. The patient was discharged to home on 01/24.
The patient presents back to the emergency room on 01/30 with reported fever to 101 degrees prior to presentation. Daily nausea was reported, along with daily diarrhea. No history of abdominal pain. In speaking to family, it appears patient often
does not stay hydrated, over fear of needing to get up in the middle of the night to urinate due to prostate issues.
Past History
Additional Past Medical History:
Atrial fibrillation
Hypertension
Dyslipidemia
Additional Past Surgical History:
Umbilical hernia repair
Allergy History:
Penicillins Allergy (Verified 01/19/25 10:59)
Reported erythema multiforme
Medications Reviewed: Yes
Current Antibiotics:
Vanco
IV erythromycin
Social History
Tobacco: Non-Smoker
Alcohol: None
Drug: None
Personal:
Living: With Family
Employment: Retired
Family History
Family History: Not Pertinent
Review of Systems
Vital Signs
Temp Tmax Pulse Resp BP Pulse Ox
98.3 F 100.4 86 16 152/95 97
02/01/25 15:42 01/31/25 19:24 02/01/25 15:42 02/01/25 15:42 02/01/25 15:42 02/01/25 15:42
Physical Exam
Physical Exam
Constitutional: No Acute Distress, Comfortable, Chronically Ill and Non-toxic
Eyes: Pupils Equal, Pupils Round, No Conjunctival Hemorrhage and Sclera Anicteric
Oral: No Thrush and No Ulcers
Cardiovascular: Regular Rate and S1/S2; Negative S3/S4
Pulmonary: Clear; Negative Wheezes, Rales or Rhonchi
Gastrointestinal: Soft, Non Tender, Non Distended and Normal Bowel Sounds
Extremities: Negative Edema, Cyanosis or Erythema
Skin: Warm and Dry; Negative Rash or Jaundice
Neurological: Awake and Alert
Psychological: Calm
.
Lab / Diagnostic Study Results
02/01/25 06:59
02/01/25 06:59
Abs Immat Gran (auto) 0.1 10^3/uL (0-0.05) H 01/30/25 12:47
Absolute Neuts (auto) 6.6 10^3/uL (1.4-6.5) H 01/30/25 12:47
Absolute Lymphs (auto) 0.6 10^3/uL (1.2-3.4) L 01/30/25 12:47
Absolute Monos (auto) 1.0 10^3/uL (0.1-0.6) H 01/30/25 12:47
Absolute Basos (auto) 0.0 10^3/uL (0-0.2) 01/30/25 12:47
Immature Gran % 0.6 % (0-0.5) H 01/30/25 12:47
Neutrophils % 79.5 % (42.2-75.2) H 01/30/25 12:47
Lymphocytes % 7.3 % (20.5-51.1) L 01/30/25 12:47
Monocytes % 12.0 % (1.7-9.3) H 01/30/25 12:47
Eosinophils % 0.4 % (0-6) 01/30/25 12:47
Basophils % 0.2 % (0-2) 01/30/25 12:47
Microbiology Results
Micro:
02/01/25 13:38 Salmonella/Shigella Culture - Pending
Feces/Stool Campylobacter Culture - Pending
Shiga Toxin Test - Pending
01/30/25 13:35 Blood Culture - Preliminary
Blood/Venous No Growth in 48 hours- Final report to follow
01/30/25 13:35 Blood Culture - Preliminary
Blood/Venous Diptheroids
Gram Stain - Preliminary
02/01/25 10:38 Blood Culture - Pending
Blood/Venous
02/01/25 10:08 Blood Culture - Pending
Blood/Venous
01/30/25 15:52 Blood Parasites Smear - Final
Blood/Venous
01/31/25 10:06 Influenza Types A & B (GREG) - Final
Nasal Swab Negative for Influenza A & B, NAAT
Negative results must be combined with clinical observations
and patient history.
Nucleic Acid Amplification test (NAAT)performed on the
[employer] platform.
Assessment / Plan
Weakness
Fatigue
Positive blood culture
- pseudobacteremia
Atrial fibrillation
Hypertension
Dyslipidemia
Recommendations:
At present, no evidence of an infectious process.
Discontinue further antibiotics and observe.
Will continue to monitor white count and temperature curve.
Care Review
Plan reviewed with: Physician (GI)
[2025-02-01] MEDS: BENICAR 40 MG PO (18:16)
[2025-02-01] MEDS: PEPCID 20 MG PO (19:41)
[2025-02-01] MEDS: TYLENOL 650 MG PO (21:35)
[2025-02-01] MEDS: XALATAN OPHTHALMIC SOLUTION 1 DROP BOTH EYES (21:35)
[2025-02-01 23:24] VITALS: BP 148/82
[2025-02-02] VITALS (7 sets, daily range): BP systolic 141–185; BP diastolic 83–113; PULSE 81
[2025-02-02 07:40] LABS: Blood Urea Nitrogen 8 mg/dl (9-20); Calcium 8.7 mg/dl (8.4-10.2); Carbon Dioxide 26 mmol/L (22-30); Chloride 99 mmol/L (98-107); Estimated Creatinine Clearance 84 ml/min; Glucose 85 mg/dl (70-99); Sodium 129 mmol/L (135-145); eGFR > 60.00
--- NOTE | 2025-02-02 08:35 | W.PN.HOSP.TC ---
Today's Communication/Plan
-
see bold
Assessment / Plan
Assessment / Plan
HPI: 79-year-old male past medical history of diverticulitis, hypertension, atrial fibrillation on Eliquis, CAD status post send, GERD/Ahmadi's esophagus, BPH, renal calculi, arthritis, glucoma, squamous cell skin cancer, aortic atherosclerosis
presenting with fever, weakness, nausea, diarrhea, weight loss, increased urinary frequency, shuffling gait and falling. No travel history. No joint pain or rashes.
Patient MRI done as outpatient last week at [facility] with result not available yet.
No artificial hardware valves.
Urinalysis unremarkable.
CT scan from 01/19 shows no acute inflammatory process.
Outpatient MRI abdomen shows 1.5 cm hemangioma in segment 5 of the right hepatic lobe, 0.7 cm cystic lesion in the inferior pancreatic head, small renal cortical cyst. Left atrial enlargement. 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
mesenteric arteries.
#Recurrent low grade fever
UA negative, parasite smear negative
Daughter Sofi is highly concerned about diverticulitis
Recent CT of the abdomen and pelvis on 01/19 is negative for diverticulitis
Patient denies abdominal pain. Daughter reports nausea, diarrhea at home
Seen by GI, who have signed off, follow-up repeat stool cultures, last stool cultures on 01/19 were negative
1 out of 2 blood cultures growing diphtheroids�appreciate ID input, contaminant.
ID recommends monitoring off of antibiotics
Follow-up on Lyme
#Weakness
PT/OT recommend short-term rehab
#Euvolemic hyponatremia
Sodium remains 129 despite fluid restriction
TSH and a.m. cortisol normal
Urine studies requested
Consult nephrology, continue fluid restriction, trend sodium
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
Appreciate vascular surgery input, patient denies postprandial symptoms
Recommend outpatient follow-up
#Essential hypertension
Continue Benicar 40 mg p.o. daily with hold parameters, hydralazine 25 mg twice daily with hold parameters, propranolol 60 mg daily
#Chronic A-fib
TTE 06/25/2021 EF 60 to 65%
Continue amiodarone, Eliquis
#CAD status post LAD stenting 90% lesion
Continue Eliquis 5 mg twice daily, Lipitor 40 mg every afternoon, propranolol 60 mg daily, statin
#GERD/Ahmadi's esophagus
No current PPI listed
#HLD
Continue statin
#BPH
#Renal calculi/uric acid type
Continue Flomax 0.4 mg p.o. twice daily
Continue potassium citrate 15 mill equivalents p.o. twice daily
Other PMH:
Arthritis
Glaucoma-continue eyedrops
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
Atherosclerosis of the aorta
Atherosclerosis [place] arteries of extremities iliac atherosclerosis on CT urogram
Multiple colonic polyps March 2024 seventeen 3 over 1 cm requiring Endo [id number] outpatient GI
DVT prophylaxis�Eliquis
DNR
Discussed patient's case extensively with his daughter on the phone 01/31
Total time spent to see the patient on the floor, examine the patient, review data and lab results, discuss treatment plan with patient, nursing staff around 51 minutes.
Physical Exam
General: No acute distress
HEENT: Normocephalic, Atraumatic, EOMI, MMM
Respiratory: Clear to Auscultation bilaterally
Cardiac: Normal S1/S2, Regular Rate and Rhythm
GI: Soft, Nontender, Nondistended, Normal Bowel Sounds
Extremities: No Clubbing, Cyanosis, or Edema
Neuro: Nonfocal/Grossly Intact
Psych: Calm, Cooperative
Anticipated Discharge: 24 - 48 hours
Subjective/Interval History
-
Date of Service: February 02, 2025
Patient denies abdominal pain. Denies nausea/vomiting. Nursing staff reports he is having 1�2 soft bowel movements a day. No chest pain, no shortness of breath. Low-grade fever, Tmax 99.
Objective Data
-
Labs:
Laboratory Results
02/02/25
06:16
Sodium 129 L
Potassium 4.0
Chloride 99
Carbon Dioxide 26
BUN 8 L
Creatinine 0.7
Glucose 85
Calcium 8.7
Vital Signs:
Vital Signs
Temp Pulse Resp BP Pulse Ox
98.4 F 85 16 176/113 97
02/02/25 07:55 02/02/25 07:55 02/02/25 07:55 02/02/25 07:55 02/02/25 07:55
I&O
02/01/25 02/02/25 02/03/25
06:59 06:59 06:59
Intake Total 2400 / 2400 960 / 960
Output Total 1450 / 1450 2800 / 2800
Balance 950 / 950 -1840 / -1840
[2025-02-02] MEDS: INDERAL LA 180 MG PO (09:11)
[2025-02-02] MEDS: FLOMAX 0.8 MG PO (09:11)
[2025-02-02] MEDS: APRESOLINE 25 MG PO ×2 (09:11→19:54)
[2025-02-02] MEDS: UROCIT-K 30 MEQ PO ×2 (09:11→19:54)
[2025-02-02] MEDS: PEPCID 20 MG PO ×2 (09:11→19:54)
[2025-02-02] MEDS: ELIQUIS 5 MG PO ×2 (09:11→19:54)
[2025-02-02] MEDS: LIPITOR 40 MG PO (09:12)
--- NOTE | 2025-02-02 09:28 | W.PN.ID1 ---
Date of Service
Date of Service: February 02, 2025
Today's Communication
Sign off.
Assessment / Plan
Weakness
Fatigue
Positive blood culture with diphtheroids in 1 of 4 bottles
- pseudobacteremia
Hyponatremia
Atrial fibrillation
Hypertension
Dyslipidemia
Recommendations:
At present, no evidence of an infectious process.
Diphtheroids recovered from a single blood culture should be considered contamination. No need to treat.
Continue off antibiotics.
Little more to offer from a Infectious Disease standpoint.
Will see again at your request.
Chief Complaint
-: Fever
Subjective / Review of Systems
Patient seen and examined. Overall feels well. No reported fevers. No abdominal pain. No nausea, vomiting or diarrhea.
Review of Systems: No Fever and No Chills
Vital Signs / Physical Exam
Vital Signs
Vital Signs
Temp Pulse Resp BP Pulse Ox
98.4 F 86 16 134/99 97
02/02/25 07:55 02/02/25 09:11 02/02/25 07:55 02/02/25 09:11 02/02/25 07:55
Physical Exam
Constitutional: No Acute Distress, Comfortable and Non-toxic
Eyes: Sclera Anicteric
Cardiovascular: S1/S2; Negative S3/S4
Pulmonary: Non Labored
Gastrointestinal: Soft, Non Tender, Non Distended, No Rebound and No Guarding
Extremities: Negative Edema, Cyanosis or Erythema
Neurological: Awake and Alert
Psychological: Calm
Objective Data
Lab Data
Lab Results
02/01/25 06:59
02/02/25 06:16
Estimated Creat Clear 84 ml/min 02/02/25 06:16
Total Bilirubin 1.3 mg/dl (0.2-1.3) 01/30/25 12:47
AST 26 U/L (17-59) 01/30/25 12:47
ALT 65 U/L (0-50) H 01/30/25 12:47
Alkaline Phosphatase 61 U/L (38-126) 01/30/25 12:47
Most recent labs reviewed.
Micro Results:
02/01/25 13:38 Salmonella/Shigella Culture - Pending
Feces/Stool Campylobacter Culture - Pending
Shiga Toxin Test - Pending
01/30/25 13:35 Blood Culture - Preliminary
Blood/Venous No Growth in 48 hours- Final report to follow
01/30/25 13:35 Blood Culture - Preliminary
Blood/Venous Diptheroids
Gram Stain - Preliminary
02/01/25 10:38 Blood Culture - Pending
Blood/Venous
02/01/25 10:08 Blood Culture - Pending
Blood/Venous
01/30/25 15:52 Blood Parasites Smear - Final
Blood/Venous
01/31/25 10:06 Influenza Types A & B (GREG) - Final
Nasal Swab Negative for Influenza A & B, NAAT
Negative results must be combined with clinical observations
and patient history.
Nucleic Acid Amplification test (NAAT)performed on the
[employer] platform.
Care Review
Plan reviewed with: Physician (Hospitalist)
[2025-02-02 09:39] LABS: Osmolality Serum 266 mOsm/kg (275-300)
--- NOTE | 2025-02-02 14:32 | CM ---
Reviewed the chart notes. CM continues to be available to patient/family and is monitoring medical plan for needs at discharge.
Plan: Discharge to home when medically stable with VN services.
[2025-02-02 15:31] LABS: Urine Sodium 122 mmol/L (30-90)
--- NOTE | 2025-02-02 16:56 | W.CON.NEPH ---
Consultation
-
Date/Time Consultation Requested: 02/02/25 1435
Date/Time Consultation Performed: 02/02/25 1530
Requesting Provider: Avi Tariq Do
Performing Provider: Yessenia Sheth
Reason for Consultation: hypoantremia
Medical History
-
Chief Complaint: Fever, weakness
History of Present Illness:
79-year-old male with significant past medical history for GERD, hypertension on hydralazine, benicar, higher dose of propranolol, atrial fibrillation on AC with Eliquis, h/o K stone on K citrate who presented to ED on 01/30/2025 intermittent fever,
malaise, decreased appetite, and loose stools over the past month. He was at 10days ago for same and no infection could be found. He presented with same symptoms now, w/u so far negative for infection and remains off abx. He had hyponatremia
previous visit spironolactone was discontinued. Sodium improved to 130 from 127. During current admit sodium remains at 129 despite NS IVF. He also saw vascular for high-grade stenosis of celiac and superior mesenteric artery which she needs
outpatient follow-up. Daughter provided most of the history. Patient looks very tired and was sleeping During visit but easily arousable. He offers no chest pain or shortness of breath. He does have increased urinary frequency with history of BPH
and takes Flomax and 8 mg daily I suppose to have urological interventions when he deemed stable. His urologist at [facility]. No dysuria currently. He feels nausea and decreased appetite. Able to drink liquids but not really eating well. No
abdominal pain or diarrhea or constipation today. Family concerned that the hyponatremia is probably the cause of his generalized weakness since nephrology was consulted. reportedly he had COVID about a month ago and took the course of paxlovid.
Past Medical History
A-fib
COVID November 2024
CAD status post LAD stenting 90% lesion
Arthritis
Diverticulosis/diverticulitis
Renal calculi
HTN
GERD
Ahmadi's esophagus
Glaucoma
BPH
Renal calculi/uric acid
Atherosclerosis of the aorta
on CT urogram atherosclerosis of the extremities/iliac
Colonic polyps April 04 2417 polyps 3 over 1 cm requiring Endo Clip and biopsy
Past Surgical History: Other (Umbilical hernia repair Rotator cuff repair Endoscopy 01/21/2009 Colonoscopy with colonic polyp removal 06/04/2013 Dr. Clark)
Social History
daughter is the POA
Tobacco: Non-Smoker
Alcohol: None
Drug: None
Personal:
Living: With Family
Family History
Family History: Not Pertinent
Allergies / Home Medications
Allergy/AdvReac Type Severity Reaction Status Date / Time
Penicillins Allergy erythema Verified 01/19/25 10:59
multiforme
�Medication �Instructions �Recorded �Confirmed �Type
acetaminophen 650 mg 1,300 mg PO Q12H Pain 01/19/25 01/30/25 History
tablet,extended release
apixaban 5 mg tablet (Eliquis) 5 mg PO BID Blood Clot 01/19/25 01/30/25 History
Prevention/Tx
bimatoprost 0.01 % eye drops 1 drp BOTH EYES HS Eye Condition 01/19/25 01/30/25 History
(Lumigan)
hydralazine 25 mg tablet 25 mg PO BID Blood Pressure 01/19/25 01/30/25 History
olmesartan 40 mg tablet (Benicar) 40 mg PO QPM Blood Pressure 01/19/25 01/30/25 History
potassium citrate 15 mEq (1,620 30 meq PO BID Electrolyte Repletion 01/19/25 01/30/25 History
mg) tablet,extended release
propranolol 60 mg capsule,24 180 mg PO DAILY Blood Pressure 01/19/25 01/30/25 History
hr,extended release
tamsulosin 0.4 mg capsule 0.8 mg PO DAILY Urinary Issue 01/19/25 01/30/25 History
atorvastatin 40 mg tablet (Lipitor) 40 mg PO DAILY High Cholesterol 01/30/25 01/30/25 History
Review of Systems
-
All other systems: Negative unless noted
Physical Exam
Vital Signs
Vital Signs
Temp Pulse Resp BP Pulse Ox
98.5 F 90 16 148/83 99
02/02/25 15:52 02/02/25 15:52 02/02/25 15:52 02/02/25 15:52 02/02/25 15:52
Lab Results
WBC 8.6 10^3/uL (4.8-10.8) 02/01/25 06:59
RBC 5.17 10^6/uL (4.70-6.10) 02/01/25 06:59
Hgb 16.0 g/dL (13.0-18.0) 02/01/25 06:59
Hct 45.8 % (39.0-52.0) 02/01/25 06:59
Plt Count 235 10^3/uL (130-400) D 02/01/25 06:59
Sodium 129 mmol/L (135-145) L 02/02/25 06:16
Potassium 4.0 mmol/L (3.5-5.1) 02/02/25 06:16
Chloride 99 mmol/L (98-107) 02/02/25 06:16
Carbon Dioxide 26 mmol/L (22-30) 02/02/25 06:16
BUN 8 mg/dl (9-20) L 02/02/25 06:16
Creatinine 0.7 mg/dL (0.7-1.3) 02/02/25 06:16
eGFR > 60.00 02/02/25 06:16
Glucose 85 mg/dl (70-99) 02/02/25 06:16
Calcium 8.7 mg/dl (8.4-10.2) 02/02/25 06:16
Albumin 3.8 g/dl (3.5-5.0) 01/30/25 12:47
Physical Exam
General: Awake, Alert, Oriented, No Distress and Nontoxic
HEENT: EOMI, Anicteric, Facial Symmetry and No JVD
Respiratory: Clear, Normal Excursion and Nonlabored Respirations
Cardiac: S1/S2 and Regular Rate/Rhythm
Breast: Deferred by me
Abdomen: Soft, Nontender and Nondistended
Musculoskeletal: No Cyanosis and No Edema
Skin: No Rash
Neuro: Nonfocal/Grossly Intact
Psych: Appropriate
Assessment/Plan
-
IMP:
Recurrent low grade fever
Weakness
Euvolemic hyponatremia
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
Essential hypertension
Chronic A-fib
TTE 06/25/2021 EF 60 to 65%
CAD status post LAD stenting
GERD/Ahmadi's esophagus
HLD
BPH
Renal calculi/uric acid type
Arthritis
Glaucoma-continue eyedrops
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
Atherosclerosis of the aorta
Atherosclerosis [place] arteries of extremities iliac atherosclerosis on CT urogram
Multiple colonic polyps March 2024 seventeen 3 over 1 cm requiring Endo [id number] outpatient GI
Plan:
A/w recurrent fever and weakness
Hyponatremia, euvolemic
Suspect high ADH state with the current illness, pending urine osmolarity and urine sodium
Serum osmolarity low at 266
TSH and cortisol were okay, no hypeotension noted
I suspect that his solute intake is really poor which also probably exaggerating the hyponatremia
If urine osmo elevated likely given Samsca
Do not think that current sodium value is causing his weakness
Reviewed with the patient, and the daughter over the phone in detail
maintain fluid restriction 48 ounces per day
Check bladder scan for increased urinary frequency
No history of kidney stone, recent CT scan shows 3 mm left renal calculi, 0.9 cm exophytic left mid pole lesion indeterminate-may need follow-up as outpatient with his at [facility], Continue potassium citrate
Maintenance normal renal function
[2025-02-02 17:09] LABS: Osmolality Urine 177 mOsm/kg (300-900)
[2025-02-02] MEDS: BENICAR 40 MG PO (18:42)
[2025-02-02] MEDS: SODIUM CHLORIDE 249.975 ML IV (20:37)
[2025-02-02] MEDS: SODIUM CHLORIDE 249.975 MEQ IV (20:37)
[2025-02-02] MEDS: XALATAN OPHTHALMIC SOLUTION 1 DROP BOTH EYES (22:32)
[2025-02-02] MEDS: APRESOLINE 5 MG IV (23:28)
[2025-02-03 00:39] VITALS: BP 154/101
[2025-02-03 05:51] VITALS: BP 144/89
--- NOTE | 2025-02-03 06:59 | W.PN.HOSP.TC ---
Today's Communication/Plan
-
continue mgmt hyponatremia as per nephro
possible discharge home with home services tomorrow if Hyponatremia improves
Assessment / Plan
Assessment / Plan
Physical Exam
General: No acute distress
HEENT: Normocephalic, Atraumatic, EOMI, MMM
Respiratory: Clear to Auscultation bilaterally
Cardiac: Normal S1/S2, Regular Rate and Rhythm
GI: Soft, Nontender, Nondistended, Normal Bowel Sounds
Extremities: No Clubbing, Cyanosis, or Edema
Neuro: Alert Conversant Coherent
Psych: Calm, Cooperative
HPI: 79-year-old male past medical history of diverticulitis, hypertension, atrial fibrillation on Eliquis, CAD status post send, GERD/Ahmadi's esophagus, BPH, renal calculi, arthritis, glucoma, squamous cell skin cancer, aortic atherosclerosis
presenting with fever, weakness, nausea, diarrhea, weight loss, increased urinary frequency, shuffling gait and falling. No travel history. No joint pain or rashes.
Patient MRI done as outpatient last week at [facility] with result not available yet.
No artificial hardware valves.
Urinalysis unremarkable.
CT scan from 01/19 shows no acute inflammatory process.
Outpatient MRI abdomen shows 1.5 cm hemangioma in segment 5 of the right hepatic lobe, 0.7 cm cystic lesion in the inferior pancreatic head, small renal cortical cyst. Left atrial enlargement. 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
mesenteric arteries.
#Recurrent low grade fever
UA negative, parasite smear negative
Daughter Sofi is highly concerned about diverticulitis
Recent CT of the abdomen and pelvis on 01/19 is negative for diverticulitis
Patient denies abdominal pain. Daughter reports nausea, diarrhea at home
Seen by GI, who have signed off, follow-up repeat stool cultures, last stool cultures on 01/19 were negative
1 out of 2 blood cultures growing diphtheroids�appreciate ID input, contaminant.
ID recommends monitoring off of antibiotics
Follow-up on Lyme
#Weakness
PT/OT initially recommended short-term rehab since updated recommendations to Home Services
#Euvolemic hyponatremia
Sodium remains 129 despite fluid restriction
TSH and a.m. cortisol normal
Urine studies appreciated
Consult nephrology appreciated, continue fluid restriction, trend sodium
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
Appreciate vascular surgery input, patient denies postprandial symptoms
Recommend outpatient follow-up
#Essential hypertension
Continue Benicar 40 mg p.o. daily with hold parameters, hydralazine 25 mg twice daily with hold parameters, propranolol 60 mg daily
#Chronic A-fib
TTE 06/25/2021 EF 60 to 65%
Continue amiodarone, Eliquis
#CAD status post LAD stenting 90% lesion
Continue Eliquis 5 mg twice daily, Lipitor 40 mg every afternoon, propranolol 60 mg daily, statin
#GERD/Ahmadi's esophagus
No current PPI listed
#HLD
Continue statin
#BPH
#Renal calculi/uric acid type
Continue Flomax 0.4 mg p.o. twice daily
Continue potassium citrate 15 mill equivalents p.o. twice daily
Other PMH:
Arthritis
Glaucoma-continue eyedrops
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
Atherosclerosis of the aorta
Atherosclerosis [place] arteries of extremities iliac atherosclerosis on CT urogram
Multiple colonic polyps March 2024 seventeen 3 over 1 cm requiring Endo [id number] outpatient GI
DVT prophylaxis�Eliquis
DNR
Discussed with patient and patient's daughter Sofi
Total time spent to see the patient on the floor, examine the patient, review data and lab results, discuss treatment plan with patient, nursing staff around 45 minutes.
Anticipated Discharge: 24 - 48 hours
Subjective/Interval History
-
Date of Service: February 03, 2025
No acute distress sitting up comfortably in chair. Reports improvement in generalized weakness. Denies significant pain. Tolerating diet.
Objective Data
-
Labs:
Laboratory Results
02/03/25
06:00
Sodium Pending
Potassium Pending
Chloride Pending
Carbon Dioxide Pending
BUN Pending
Creatinine Pending
Glucose Pending
Calcium Pending
Vital Signs:
Vital Signs
Temp Pulse Resp BP Pulse Ox
98.1 F 84 18 144/89 98
02/03/25 05:51 02/03/25 02:00 02/02/25 23:12 02/03/25 05:51 02/02/25 23:12
I&O
02/01/25 02/02/25 02/03/25
06:59 06:59 06:59
Intake Total 2400 / 2400 960 / 960 1200 / 1200
Output Total 1450 / 1450 2800 / 2800 1850 / 1850
Balance 950 / 950 -1840 / -1840 -650 / -650
[2025-02-03 07:40] VITALS: BP 155/100
[2025-02-03 08:00] LABS: Blood Urea Nitrogen 10 mg/dl (9-20); Calcium 8.6 mg/dl (8.4-10.2); Carbon Dioxide 28 mmol/L (22-30); Chloride 99 mmol/L (98-107); Estimated Creatinine Clearance 98 ml/min; Glucose 96 mg/dl (70-99); Sodium 128 mmol/L (135-145); eGFR > 60.00
[2025-02-03] MEDS: UROCIT-K 30 MEQ PO ×2 (08:37→19:48)
[2025-02-03] MEDS: INDERAL LA 180 MG PO (08:37)
[2025-02-03] MEDS: PEPCID 20 MG PO ×2 (08:38→19:48)
[2025-02-03] MEDS: APRESOLINE 25 MG PO (08:38)
[2025-02-03] MEDS: ELIQUIS 5 MG PO ×2 (08:38→19:48)
[2025-02-03] MEDS: FLOMAX 0.8 MG PO (08:38)
[2025-02-03] MEDS: TYLENOL 650 MG PO ×2 (08:45→16:56)
[2025-02-03] MEDS: LIPITOR 40 MG PO (09:28)
--- NOTE | 2025-02-03 10:40 | W.PN.NEPH.PH ---
Today's Communication / Plan
-
recheck labs on FR
Assessment/Plan
-
IMP:
Recurrent low grade fever
Weakness
Euvolemic hyponatremia
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
Essential hypertension
Chronic A-fib
TTE 06/25/2021 EF 60 to 65%
CAD status post LAD stenting
GERD/Ahmadi's esophagus
HLD
BPH
Renal calculi/uric acid type
Arthritis
Glaucoma-continue eyedrops
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
Atherosclerosis of the aorta
Atherosclerosis [place] arteries of extremities iliac atherosclerosis on CT urogram
Multiple colonic polyps March 2024 seventeen 3 over 1 cm requiring Endo [id number] outpatient GI
h/o COVID 2m ago
Plan:
A/w recurrent fever and weakness
Hyponatremia, euvolemic
no sig change despite 2% saline
Serum osmolarity low at 266, U osmo is low 177 with U na 122(IVF)
suspect high free water intake compared to solute intake
TSH and cortisol were okay
Do not think that current sodium value is causing his weakness
maintain fluid restriction 48 ounces per day
Checked bladder scan 166cc, forr increased urinary frequency
recent CT scan shows 3 mm left renal calculi, 0.9 cm exophytic left mid pole lesion indeterminate-may need follow-up as outpatient with his at [place], Continue potassium citrate for stone prevention
recheck labs later today if still low attempt low dose samsca vs lasix
bp high, increase hydralazine, cont ARB and BB
-
-
Date of Service: February 03, 2025
CC / HPI / ROS
-
Chief Complaint:
hyponatremia
History of Present Illness:
sodium down to 128
BP high, no fever
Review of Systems:
no cp or sob
feels well and eating breakfast
no dizziness
Labs
-
Labs:
WBC 8.6 10^3/uL (4.8-10.8) 02/01/25 06:59
RBC 5.17 10^6/uL (4.70-6.10) 02/01/25 06:59
Hgb 16.0 g/dL (13.0-18.0) 02/01/25 06:59
Hct 45.8 % (39.0-52.0) 02/01/25 06:59
Plt Count 235 10^3/uL (130-400) D 02/01/25 06:59
Sodium 128 mmol/L (135-145) L 02/03/25 07:10
Potassium 4.0 mmol/L (3.5-5.1) 02/03/25 07:10
Chloride 99 mmol/L (98-107) 02/03/25 07:10
Carbon Dioxide 28 mmol/L (22-30) 02/03/25 07:10
BUN 10 mg/dl (9-20) 02/03/25 07:10
Creatinine 0.6 mg/dL (0.7-1.3) L 02/03/25 07:10
eGFR > 60.00 02/03/25 07:10
Glucose 96 mg/dl (70-99) 02/03/25 07:10
Calcium 8.6 mg/dl (8.4-10.2) 02/03/25 07:10
Albumin 3.8 g/dl (3.5-5.0) 01/30/25 12:47
Physical Exam
-
Vital Signs:
Vital Signs
Temp Pulse Resp BP Pulse Ox
98.3 F 85 16 155/100 97
02/03/25 07:40 02/03/25 08:37 02/03/25 07:40 02/03/25 08:37 02/03/25 09:50
Cardiovascular:: Regular rate and rhythm
Respiratory:: Bilateral: CTA
Lung Excursion:: Normal
Abdomen:: Nontender and Soft
Extremity Edema:: None: Bilateral:
[place] Catheter: No
[2025-02-03 14:41] LABS: Sodium 130 mmol/L (135-145)
[2025-02-03 15:42] VITALS: BP 152/97
[2025-02-03 16:47] LABS: Osmolality Urine 324 mOsm/kg (300-900)
[2025-02-03 16:53] LABS: Urine Sodium 44 mmol/L (30-90)
[2025-02-03] MEDS: BENICAR 40 MG PO (16:55)
--- NOTE | 2025-02-03 18:21 | PTCARENOTE ---
Patient ambulated with walker x1 assist in the hallway (around the med room), unsteady, shuffling gait; PCT followed with wheelchair.
[2025-02-03] MEDS: APRESOLINE 50 MG PO (19:48)
[2025-02-03] MEDS: XALATAN OPHTHALMIC SOLUTION 1 DROP BOTH EYES (22:23)
[2025-02-03 23:26] VITALS: BP 159/99
[2025-02-04 06:43] LABS: Blood Urea Nitrogen 11 mg/dl (9-20); Calcium 8.6 mg/dl (8.4-10.2); Carbon Dioxide 25 mmol/L (22-30); Chloride 100 mmol/L (98-107); Estimated Creatinine Clearance 84 ml/min; Glucose 102 mg/dl (70-99); Potassium 4.3 mmol/L (3.5-5.1); Sodium 129 mmol/L (135-145); eGFR > 60.00
--- NOTE | 2025-02-04 07:02 | W.PN.HOSP.TC ---
Today's Communication/Plan
-
samsca hydralazine as per nephro
neuro eval requested evaluation intention tremors shuffling gait
blood pressure control
PT/OT
Assessment / Plan
Assessment / Plan
Physical Exam
General: No acute distress
HEENT: Normocephalic, Atraumatic, EOMI, MMM
Respiratory: Clear to Auscultation bilaterally
Cardiac: Normal S1/S2, Regular Rate and Rhythm
GI: Soft, Nontender, Nondistended, Normal Bowel Sounds
Extremities: No Clubbing, Cyanosis, or Edema
Neuro: Alert Conversant Coherent, flat affect, intention tremors noted
Psych: Calm, Cooperative
HPI: 79-year-old male past medical history of diverticulitis, hypertension, atrial fibrillation on Eliquis, CAD status post send, GERD/Ahmadi's esophagus, BPH, renal calculi, arthritis, glucoma, squamous cell skin cancer, aortic atherosclerosis
presenting with fever, weakness, nausea, diarrhea, weight loss, increased urinary frequency, shuffling gait and falling. No travel history. No joint pain or rashes.
Patient MRI done as outpatient last week at [place] with result not available yet.
No artificial hardware valves.
Urinalysis unremarkable.
CT scan from 01/19 shows no acute inflammatory process.
Outpatient MRI abdomen shows 1.5 cm hemangioma in segment 5 of the right hepatic lobe, 0.7 cm cystic lesion in the inferior pancreatic head, small renal cortical cyst. Left atrial enlargement. 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
mesenteric arteries.
#Recurrent low grade fever
UA negative, parasite smear negative
Daughter Sofi is highly concerned about diverticulitis
Recent CT of the abdomen and pelvis on 01/19 is negative for diverticulitis
Patient denies abdominal pain. Daughter reports nausea, diarrhea at home
Seen by GI, who have signed off, follow-up repeat stool cultures, last stool cultures on 01/19 were negative
1 out of 2 blood cultures growing diphtheroids�appreciate ID input, contaminant.
ID recommends monitoring off of antibiotics
Follow-up on Lyme
#Weakness
#Intention tremors present for weeks debilitating
PT/OT initially recommended short-term rehab since updated recommendations to Home Services
Neuro eval requested
#Euvolemic hyponatremia
Sodium remains 120s despite fluid restriction
TSH and a.m. cortisol normal
Urine studies appreciated
Consult nephrology appreciated, continue fluid restriction, trend sodium, samsca 02/04/25
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
Appreciate vascular surgery input, patient denies postprandial symptoms
Recommend outpatient follow-up
#Essential hypertension
Continue Benicar 40 mg p.o. daily with hold parameters, propranolol 180 mg daily
PO hydralazine titrated up to 75 mg PO BID
#Chronic A-fib
TTE 06/25/2021 EF 60 to 65%
Continue amiodarone, Eliquis
#CAD status post LAD stenting 90% lesion
Continue Eliquis 5 mg twice daily, Lipitor 40 mg every afternoon, propranolol 180 mg daily, statin
#GERD/Ahmadi's esophagus
No current PPI listed
#HLD
Continue statin
#BPH
#Renal calculi/uric acid type
Continue Flomax 0.4 mg p.o. twice daily
Continue potassium citrate 15 mill equivalents p.o. twice daily
Other PMH:
Arthritis
Glaucoma-continue eyedrops
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
Atherosclerosis of the aorta
Atherosclerosis [place] arteries of extremities iliac atherosclerosis on CT urogram
Multiple colonic polyps March 2024 seventeen 3 over 1 cm requiring Endo Rcud-lzhbrz-uv outpatient GI
DVT prophylaxis�Eliquis
DNR
Discussed with patient, patient's daughter Sofi, and patient's Marian Disla
Total time spent to see the patient on the floor, examine the patient, review data and lab results, discuss treatment plan with patient, nursing staff around 45 minutes.
Anticipated Discharge: 24 - 48 hours
Subjective/Interval History
-
Date of Service: February 04, 2025
Seen and examined at bedside in no acute distress sitting up comfortably in chair. Overall reports feeling well. Intention tremors however persist. Daughter Sofi and Yessica present during evaluation
Objective Data
-
Labs:
Laboratory Results
02/04/25
06:06
Sodium 129 L
Potassium 4.3
Chloride 100
Carbon Dioxide 25
BUN 11
Creatinine 0.7
Glucose 102 H
Calcium 8.6
Vital Signs:
Vital Signs
Temp Pulse Resp BP Pulse Ox
98.1 F 94 18 159/99 97
02/03/25 23:26 02/03/25 23:26 02/03/25 23:26 02/03/25 23:26 02/03/25 23:26
I&O
02/03/25 02/04/25 02/05/25
06:59 06:59 06:59
Intake Total 1200 / 1200 720 / 720
Output Total 1850 / 1850 1795 / 1795
Balance -650 / -650 -1075 / -1075
[2025-02-04 07:40] VITALS: BP 169/105
[2025-02-04] MEDS: INDERAL LA 180 MG PO (09:30)
[2025-02-04] MEDS: APRESOLINE 50 MG PO (09:30)
[2025-02-04] MEDS: FLOMAX 0.8 MG PO (09:30)
[2025-02-04] MEDS: LIPITOR 40 MG PO (09:31)
[2025-02-04] MEDS: UROCIT-K 30 MEQ PO ×2 (09:31→20:14)
[2025-02-04] MEDS: PEPCID 20 MG PO ×2 (09:31→20:15)
[2025-02-04] MEDS: ELIQUIS 5 MG PO ×2 (09:31→20:15)
--- NOTE | 2025-02-04 11:12 | CON.NEURO ---
Consultation
Order
Date of Consultation: 02/04/25
Requesting Provider: Aleshia Mir MD
Reason for Consult: Persistent worsening open tension tremors first noticed 3 weeks ago, shuffling gait
Neurology Consultation Note.
HPI: This is a 79-year-old man who presented to [facility] on 01/30/2025 with fever, weight loss, generalized weakness and change in gait.
Neurology consultation was requested for evaluation and management of abnormal movements.
Mr. Kent reports subacute onset of intermittent symmetric bilateral hand tremor that started about several weeks ago. The patient finds the tremor 'really annoying' when trying to leaf size picker small objects like a fork. The tremor is more pronounced
when he stretches out his arm. He has been experiencing difficulties feeding himself and has been dropping food. The tremor worsens when he is tired, particularly at night, and at that time he notes that 'everything shakes.'
Mr. Kent has had progressive imbalance over the last couple of months. He describes a 'shuffling' gait. He now uses a walker, which was recently obtained. Prior to two months ago, he did not use any assistive devices for walking. He mentions
feeling like he is 'leaning backwards' when walking.
No reports of voice tremor, head tremor or leg tremor, nightmares, visual hallucinations, cognitive dysfunction, sialorrhea, dysphagia or family history of mental disorders.
Review of vital signs was notable for transient hypertension up to 185/110 on 02/02/2025 at 23: 12.
EKG:A-Fib
PDMP:none
Labs: Sodium�129, glucose�102, normal TSH, sodium, WBCs, platelets,
CT head wo contrast (01/19/2025)�generalized atrophy, mild subcortical deep white matter signal abnormalities.
PMH:A-Fib, CAD, HTN, BPH, GERD, PAD, nephrolithiasis, h/o SARS-COv2 (2 months ago), glaucoma, squamous cell skin cancer, OA
PSH: PTCI, umbilical hernia repair, rotator cuff repair,
SH: , non-smoker, retired from , no history of excessive alcohol use, caregiver of his who has dementia
FH: No family history of abnormal movements
All:PNC
ROS: Constitutional: Negative. Negative for chills, fever and unexpected weight change.
HENT: Positive for chronic hearing impairment
Eyes: Negative. Negative for photophobia, pain and visual disturbance.
Respiratory: Negative for cough, choking and shortness of breath.
Cardiovascular: Negative for chest pain, palpitations and leg swelling.
Gastrointestinal: Negative for abdominal pain and vomiting.
Endocrine: Negative. Negative for cold intolerance.
Genitourinary: Positive for urinary urgency, nocturia
Musculoskeletal: Negative for back pain, gait problem, neck pain and neck stiffness.
Skin: Negative for rash.
Allergic/Immunologic: Negative. Negative for immunocompromised state.
Neurological: Positive for head tremor change in gait and balance
General: Well developed. In no acute distress.
Cardio: irregular rate and rhythm without murmur. Extremities are without cyanosis or edema.
Neuro: Masked facies
Mental Status: Alert, oriented to person, place, and date. Increased processing time. Flat affect follows complex requests across the midline. Comprehension, naming, and repetition intact. Impaired delayed recall
Cranial Nerves: Pupils are equally round and reactive to light. EOMs full. Visual sorenson full to confrontation. Mild left greater than right ptosis (chronic). No nystagmus. V1-V3 intact to light touch and pinprick bilaterally, symmetric. Face
symmetric. Poor hearing AU. The palate elevated well. SCMs and traps 5/5. Tongue midline. No dysarthria.
Motor: Limited motor tone exam due to arthralgias. No pronator or arm drift. Strength 5/5 throughout. No clonus.
Reflexes: Trace throughout.
Sensory: Normal light touch
Coordination: Bilateral action hand tremor. No dysmetria.
Gait: Wide-based, short stride, turns en bloc
Assessment and Plan:
I. Extrapyramidal syndrome
II. Mild encephalopathy
III. Ambulatory dysfunction
- Continue Telemetry monitoring
- Fall precautions
- Please obtain orthostatic vital signs
- Brain MRI without damian
- Avoid medications with dopamine blocking properties
- OP Datscan and neuropsychological evaluation.
- Start Neurontin 100 mg with titration as tolerated for symptomatic tremor relief
- Continue propranolol 180 mg daily (the patient has been taking propranolol since 20s for management of hypertension)
- PT
- DVT prophylaxis.
I personally reviewed all radiology and labs along with past medical records pertinent to current medical problems. Total time spent in patient care is 60 minutes.
Thank you for allowing us to participate in the care of this patient. We will continue to follow. Please do not hesitate to contact us with any questions or concerns.
Subjective/Objective
Subjective Data
Date of Service: February 04, 2025
Objective Data
Vital Signs
Temp Pulse Resp BP Pulse Ox
36.6 C 87 16 169/105 98
02/04/25 07:40 02/04/25 09:30 02/04/25 07:40 02/04/25 09:30 02/04/25 07:40
Lab Results
02/01/25 06:59
02/04/25 06:06
Sodium 129 mmol/L (135-145) L 02/04/25 06:06
Potassium 4.3 mmol/L (3.5-5.1) 02/04/25 06:06
BUN 11 mg/dl (9-20) 02/04/25 06:06
Glucose 102 mg/dl (70-99) H 02/04/25 06:06
Calcium 8.6 mg/dl (8.4-10.2) 02/04/25 06:06
Patient Allergies
Penicillins Allergy (Verified 01/19/25 10:59)
erythema multiforme
Medications
-
Active Medications
Generic Name Dose Route Start Last Admin
Trade Name Freq PRN Reason Stop Dose Admin
Acetaminophen 650 mg 01/30/25 18:38 02/03/25 16:56
Acetaminophen 325 Mg Tablet PO 02/27/25 18:37 650 mg
Q4HPRN PRN Administration
mild pain/TRISTAN/temp> 100.4F
Apixaban 5 mg 01/30/25 20:00 02/04/25 09:31
Apixaban (Eliquis) 5 Mg Tablet PO 02/27/25 19:59 5 mg
BID CORINNA Administration
Atorvastatin Calcium 40 mg 01/31/25 08:00 02/04/25 09:31
Atorvastatin (Lipitor) 40 Mg Tablet PO 02/28/25 07:59 40 mg
DAILY CORINNA Administration
Bisacodyl 10 mg 01/30/25 18:38
Bisacodyl 10 Mg Rectal Suppository RECTAL 02/27/25 18:37
[id number] PRN
constipation
Famotidine 20 mg 02/01/25 20:00 02/04/25 09:31
Famotidine 20 Mg Tablet PO 03/01/25 19:59 20 mg
BID CORINNA Administration
Hydralazine HCl 50 mg 02/03/25 20:00 02/04/25 09:30
Hydralazine 50 Mg Tablet PO 03/03/25 19:59 50 mg
BID CORINNA Administration
Latanoprost 0 drop 01/30/25 22:00 02/03/25 22:23
Latanoprost 0.005% (Ophthalmic Solution) 2.5 Ml Bottle BOTH EYES 02/27/25 21:59 1 drop
HS CORINNA Administration
Olmesartan 40 mg 01/30/25 19:00 02/03/25 16:55
Olmesartan 20 Mg Tablet PO 02/27/25 18:59 40 mg
QPM CORINNA Administration
Polyethylene Glycol 17 grams 01/30/25 18:38
Polyethylene Glycol Powder 17 Grams Packet PO 02/27/25 18:37
DAILYPRN PRN
constipation
Potassium Citrate 30 meq 01/30/25 20:00 02/04/25 09:31
Potassium Citrate 10 Meq Tablet PO 02/27/25 19:59 30 meq
BID CORINNA Administration
Propranolol HCl 180 mg 01/31/25 08:00 02/04/25 09:30
Propranolol Extended Release 60 Mg Capsule (24hr) PO 02/28/25 07:59 180 mg
DAILY CORINNA Administration
Senna/Docusate Sodium 1 tablet 01/30/25 18:38
Docusate W/Senna (Julianna-Colace) Tablet PO 02/27/25 18:37
BIDPRN PRN
constipation
Sodium Chloride 0 flush 01/30/25 19:00
Sodium Chloride 0.9% (Flush) Syringe IV 02/27/25 18:59
PER PROTOCOL CORINNA
Tamsulosin HCl 0.8 mg 01/31/25 08:00 02/04/25 09:30
Tamsulosin 0.4 Mg Capsule PO 02/28/25 07:59 0.8 mg
DAILY CORINNA Administration
Home Medications
�Medication �Instructions �Recorded
acetaminophen 650 mg 1,300 mg PO Q12H Pain 01/19/25
tablet,extended release
apixaban 5 mg tablet (Eliquis) 5 mg PO BID Blood Clot 01/19/25
Prevention/Tx
bimatoprost 0.01 % eye drops 1 drp BOTH EYES HS Eye Condition 01/19/25
(Lumigan)
hydralazine 25 mg tablet 25 mg PO BID Blood Pressure 01/19/25
olmesartan 40 mg tablet (Benicar) 40 mg PO QPM Blood Pressure 01/19/25
potassium citrate 15 mEq (1,620 30 meq PO BID Electrolyte Repletion 01/19/25
mg) tablet,extended release
propranolol 60 mg capsule,24 180 mg PO DAILY Blood Pressure 01/19/25
hr,extended release
tamsulosin 0.4 mg capsule 0.8 mg PO DAILY Urinary Issue 01/19/25
atorvastatin 40 mg tablet (Lipitor) 40 mg PO DAILY High Cholesterol 01/30/25
Vital Signs and Labs
-
Vital Signs and Labs:
Vital Signs
Temp Pulse Resp BP Pulse Ox
36.6 C 87 16 169/105 98
02/04/25 07:40 02/04/25 09:30 02/04/25 07:40 02/04/25 09:30 02/04/25 07:40
Lab Results
02/01/25 06:59
02/04/25 06:06
Sodium 129 mmol/L (135-145) L 02/04/25 06:06
Potassium 4.3 mmol/L (3.5-5.1) 02/04/25 06:06
BUN 11 mg/dl (9-20) 02/04/25 06:06
Glucose 102 mg/dl (70-99) H 02/04/25 06:06
Calcium 8.6 mg/dl (8.4-10.2) 02/04/25 06:06
Medications
-
Medications:
Generic Name Dose Route Start Last Admin
Trade Name Freq PRN Reason Stop Dose Admin
Acetaminophen 650 mg 01/30/25 18:38 02/03/25 16:56
Acetaminophen 325 Mg Tablet PO 02/27/25 18:37 650 mg
Q4HPRN PRN Administration
mild pain/TRISTAN/temp> 100.4F
Apixaban 5 mg 01/30/25 20:00 02/04/25 09:31
Apixaban (Eliquis) 5 Mg Tablet PO 02/27/25 19:59 5 mg
BID CORINNA Administration
Atorvastatin Calcium 40 mg 01/31/25 08:00 02/04/25 09:31
Atorvastatin (Lipitor) 40 Mg Tablet PO 02/28/25 07:59 40 mg
DAILY CORINNA Administration
Bisacodyl 10 mg 01/30/25 18:38
Bisacodyl 10 Mg Rectal Suppository RECTAL 02/27/25 18:37
[id number] PRN
constipation
Famotidine 20 mg 02/01/25 20:00 02/04/25 09:31
Famotidine 20 Mg Tablet PO 03/01/25 19:59 20 mg
BID CORINNA Administration
Hydralazine HCl 50 mg 02/03/25 20:00 02/04/25 09:30
Hydralazine 50 Mg Tablet PO 03/03/25 19:59 50 mg
BID CORINNA Administration
Latanoprost 0 drop 01/30/25 22:00 02/03/25 22:23
Latanoprost 0.005% (Ophthalmic Solution) 2.5 Ml Bottle BOTH EYES 02/27/25 21:59 1 drop
HS CORINNA Administration
Olmesartan 40 mg 01/30/25 19:00 02/03/25 16:55
Olmesartan 20 Mg Tablet PO 02/27/25 18:59 40 mg
QPM CORINNA Administration
Polyethylene Glycol 17 grams 01/30/25 18:38
Polyethylene Glycol Powder 17 Grams Packet PO 02/27/25 18:37
DAILYPRN PRN
constipation
Potassium Citrate 30 meq 01/30/25 20:00 02/04/25 09:31
Potassium Citrate 10 Meq Tablet PO 02/27/25 19:59 30 meq
BID CORINNA Administration
Propranolol HCl 180 mg 01/31/25 08:00 02/04/25 09:30
Propranolol Extended Release 60 Mg Capsule (24hr) PO 02/28/25 07:59 180 mg
DAILY CORINNA Administration
Senna/Docusate Sodium 1 tablet 01/30/25 18:38
Docusate W/Senna (Julianna-Colace) Tablet PO 02/27/25 18:37
BIDPRN PRN
constipation
Sodium Chloride 0 flush 01/30/25 19:00
Sodium Chloride 0.9% (Flush) Syringe IV 02/27/25 18:59
PER PROTOCOL CORINNA
Tamsulosin HCl 0.8 mg 01/31/25 08:00 02/04/25 09:30
Tamsulosin 0.4 Mg Capsule PO 02/28/25 07:59 0.8 mg
DAILY CORINNA Administration
Home Medications
-
Home Medications
acetaminophen 650 mg tablet,extended release 1,300 mg PO Q12H Pain 01/19/25
apixaban 5 mg tablet (Eliquis) 5 mg PO BID Blood Clot Prevention/Tx 01/19/25
bimatoprost 0.01 % eye drops (Lumigan) 1 drp BOTH EYES HS Eye Condition 01/19/25
hydralazine 25 mg tablet 25 mg PO BID Blood Pressure 01/19/25
olmesartan 40 mg tablet (Benicar) 40 mg PO QPM Blood Pressure 01/19/25
potassium citrate 15 mEq (1,620 mg) tablet,extended release 30 meq PO BID Electrolyte Repletion 01/19/25
propranolol 60 mg capsule,24 hr,extended release 180 mg PO DAILY Blood Pressure 01/19/25
tamsulosin 0.4 mg capsule 0.8 mg PO DAILY Urinary Issue 01/19/25
atorvastatin 40 mg tablet (Lipitor) 40 mg PO DAILY High Cholesterol 01/30/25
[2025-02-04 12:31] LABS: Creatine Phosphokinase 26 U/L (55-170)
--- NOTE | 2025-02-04 12:40 | W.PN.NEPH.PH ---
Today's Communication / Plan
-
samsca
Assessment/Plan
-
IMP:
Recurrent low grade fever
Weakness
Euvolemic hyponatremia
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
Essential hypertension
Chronic A-fib
TTE 06/25/2021 EF 60 to 65%
CAD status post LAD stenting
GERD/Ahmadi's esophagus
HLD
BPH
Renal calculi/uric acid type
Arthritis
Glaucoma-continue eyedrops
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
Atherosclerosis of the aorta
Atherosclerosis [place] arteries of extremities iliac atherosclerosis on CT urogram
Multiple colonic polyps March 2024 seventeen 3 over 1 cm requiring Endo [id number]-wp outpatient GI
h/o COVID 2m ago
Plan:
A/w recurrent fever and weakness
Hyponatremia, euvolemic
Serum osmolarity low at 266, initial U osmo is low 177 with U na 122(IVF)
repeat at 324, U na 44 suggest high ADH state-SIADH
sodium no change at 129 will dose smasca today
TSH and cortisol were okay
maintain fluid restriction 48 ounces per day
Checked bladder scan 166cc, for increased urinary frequency
recent CT scan shows 3 mm left renal calculi, 0.9 cm exophytic left mid pole lesion indeterminate-may need follow-up as outpatient with his at [place], Continue potassium citrate for stone prevention
bp high, increase hydralazine again 75mg BID, cont ARB and BB
d/w pt and family at bedside
-
-
Date of Service: February 04, 2025
CC / HPI / ROS
-
Chief Complaint:
hyponatremia
History of Present Illness:
sodium up at 130 last evening but down to 129 this am
Bp high , no fever
Review of Systems:
no cp or sob
feels well and poor appetite
had bm today
Labs
-
Labs:
WBC 8.6 10^3/uL (4.8-10.8) 02/01/25 06:59
RBC 5.17 10^6/uL (4.70-6.10) 02/01/25 06:59
Hgb 16.0 g/dL (13.0-18.0) 02/01/25 06:59
Hct 45.8 % (39.0-52.0) 02/01/25 06:59
Plt Count 235 10^3/uL (130-400) D 02/01/25 06:59
Sodium 129 mmol/L (135-145) L 02/04/25 06:06
Potassium 4.3 mmol/L (3.5-5.1) 02/04/25 06:06
Chloride 100 mmol/L (98-107) 02/04/25 06:06
Carbon Dioxide 25 mmol/L (22-30) 02/04/25 06:06
BUN 11 mg/dl (9-20) 02/04/25 06:06
Creatinine 0.7 mg/dL (0.7-1.3) 02/04/25 06:06
eGFR > 60.00 02/04/25 06:06
Glucose 102 mg/dl (70-99) H 02/04/25 06:06
Calcium 8.6 mg/dl (8.4-10.2) 02/04/25 06:06
Albumin 3.8 g/dl (3.5-5.0) 01/30/25 12:47
Physical Exam
-
Vital Signs:
Vital Signs
Temp Pulse Resp BP Pulse Ox
97.8 F 87 16 169/105 98
02/04/25 07:40 02/04/25 09:30 02/04/25 07:40 02/04/25 09:30 02/04/25 07:40
Cardiovascular:: Regular rate and rhythm
Respiratory:: Bilateral: CTA
Lung Excursion:: Normal
Abdomen:: Nontender and Soft
Extremity Edema:: None: Bilateral:
[place] Catheter: No
[2025-02-04 12:43] LABS: Ammonia < 9 umol/L (9-30)
[2025-02-04 13:21] LABS: Vitamin B12 489 pg/ml (239-931)
[2025-02-04] MEDS: NEURONTIN 100 MG PO ×2 (13:54→20:15)
[2025-02-04] MEDS: SAMSCA 7.5 MG PO (14:22)
[2025-02-04 15:35] VITALS: BP 152/101
[2025-02-04] MEDS: BENICAR 40 MG PO (18:29)
[2025-02-04 20:00] VITALS: BP 166/103; BP 169/110; BP 172/120; PULSE 92; PULSE 94; PULSE 98
[2025-02-04] MEDS: APRESOLINE 75 MG PO (20:15)
[2025-02-04] MEDS: XALATAN OPHTHALMIC SOLUTION 1 DROP BOTH EYES (20:16)
[2025-02-04 23:00] VITALS: BP 139/90
[2025-02-05 06:45] LABS: Blood Urea Nitrogen 13 mg/dl (9-20); Calcium 8.8 mg/dl (8.4-10.2); Carbon Dioxide 28 mmol/L (22-30); Chloride 98 mmol/L (98-107); Estimated Creatinine Clearance 65 ml/min; Glucose 105 mg/dl (70-99); Potassium 4.6 mmol/L (3.5-5.1); Sodium 133 mmol/L (135-145); eGFR > 60.00
--- NOTE | 2025-02-05 07:24 | W.PN.HOSP.TC ---
Today's Communication/Plan
-
increase Gabapentin TID
PT/OT
blood pressure control
fluid restriction
likely discharge tomorrow home with home services if remains stable/continues to improve
Assessment / Plan
Assessment / Plan
Physical Exam
General: No acute distress
HEENT: Normocephalic, Atraumatic, EOMI, MMM, left sided hearing noted better than right, no sinus tenderness
Respiratory: Clear to Auscultation bilaterally
Cardiac: Normal S1/S2, Regular Rate and Rhythm
GI: Soft, Nontender, Nondistended, Normal Bowel Sounds
Extremities: No Clubbing, Cyanosis, or Edema
Neuro: Alert Conversant Coherent, flat affect, intention tremors noted though improved from prior
Psych: Calm, Cooperative
79M hx diverticulitis, HTN, afib Eliquis, CAD stent, GERD/Ahmadi's esophagus, BPH, renal calculi, arthritis, glaucoma, squamous cell skin cancer, aortic atherosclerosis presenting with fever, weakness, nausea, diarrhea, weight loss, increased
urinary frequency, shuffling gait and falling. No travel history. No joint pain or rashes. Urinalysis unremarkable. CT Head 01/19 showed no acute intracranial abn's. Outpatient MRI abdomen showed 1.5 cm hemangioma in segment 5 of the right
hepatic lobe, 0.7 cm cystic lesion in the inferior pancreatic head, small renal cortical cyst. Left atrial enlargement. 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
#Recurrent low grade fever
UA negative, parasite smear negative
Recent CT of the abdomen and pelvis on 01/19 is negative for diverticulitis
Patient denies abdominal pain. Daughter reports nausea, diarrhea at home
Seen by GI, who have signed off, follow-up repeat stool cultures, last stool cultures on 01/19 were negative
1 out of 2 blood cultures growing diphtheroids�appreciate ID input, contaminant.
ID recommends monitoring off of antibiotics
Lyme neg
#Weakness
#Intention tremors present for weeks debilitating
PT/OT initially recommended short-term rehab since updated recommendations to Home Services
Neuro eval appreciated low dose neurontin started, outpt Datscan and neuropsych eval recommended
Brain MRI appreciated moderate cerebral and cerebellar volume loss w/ ex vacuo dilatation, moderate fluid LT mastoid air cells, severe mucosal dz Lt posterior ethmoid air cells, severe discogenic degenerative dz cervical spine
currently patient has no signs symptoms sinusitis, post-nasal drip, or nasal congestion
MRI findings and patient's clinical presentation were discussed with ENT who recommended outpt follow up
Tremors since improved with start neurontin, dose increased to TID
#Euvolemic hyponatremia
Sodium remains 120s despite fluid restriction
TSH and a.m. cortisol normal
Urine studies appreciated
Consult nephrology appreciated, continue fluid restriction, trend sodium, samsca 02/04/25
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
Appreciate vascular surgery input, patient denies postprandial symptoms
Recommend outpatient follow-up
Na since improved
#Essential hypertension
Continue Benicar 40 mg p.o. daily with hold parameters, propranolol 180 mg daily
PO hydralazine titrated up to 75 mg PO BID
Blood Pressure Control since improved
#Chronic A-fib
TTE 06/25/2021 EF 60 to 65%
Continue amiodarone, Eliquis
#CAD status post LAD stenting 90% lesion
Continue Eliquis 5 mg twice daily, Lipitor 40 mg every afternoon, propranolol 180 mg daily, statin
#GERD/Ahmadi's esophagus
No current PPI listed
#HLD
Continue statin
#BPH
#Renal calculi/uric acid type
Continue Flomax 0.4 mg p.o. twice daily
Continue potassium citrate 15 mill equivalents p.o. twice daily
Other PMH:
Arthritis
Glaucoma-continue eyedrops
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
Atherosclerosis of the aorta
Atherosclerosis [place] arteries of extremities iliac atherosclerosis on CT urogram
Multiple colonic polyps March 2024 seventeen 3 over 1 cm requiring Endo [id number]-[id number]-eg outpatient GI
DVT prophylaxis�Eliquis
DNR
Discussed with patient, patient's daughters Sofi BRANHAM and May
Total time spent to see the patient on the floor, examine the patient, review data and lab results, discuss treatment plan with patient, nursing staff around 40 minutes.
Anticipated Discharge: Within 24 hours
Subjective/Interval History
-
Date of Service: February 05, 2025
No acute distress. Sitting up comfortably in chair. Intention tremors appears significantly improved with gabapentin. Able to hold cup of coffee without issues. Overall reports feeling well. Denies new acute issues including nasal congestion
coughing sneezing.
Objective Data
-
Labs:
Laboratory Results
02/05/25
05:56
Sodium 133 L
Potassium 4.6
Chloride 98
Carbon Dioxide 28
BUN 13
Creatinine 0.9
Glucose 105 H
Calcium 8.8
Vital Signs:
Vital Signs
Temp Pulse Resp BP Pulse Ox
97.9 F 97 18 139/90 96
02/04/25 23:00 02/04/25 23:00 02/04/25 23:00 02/04/25 23:00 02/04/25 23:00
I&O
02/04/25 02/05/25 02/06/25
06:59 06:59 06:59
Intake Total 720 / 720 240 / 240
Output Total 1795 / 1795 450 / 450
Balance -1075 / -1075 -210 / -210
[2025-02-05 07:40] VITALS: BP 173/113
[2025-02-05] MEDS: APRESOLINE 75 MG PO ×2 (08:02→19:49)
[2025-02-05] MEDS: FLOMAX 0.8 MG PO (08:04)
[2025-02-05] MEDS: INDERAL LA 180 MG PO (08:04)
[2025-02-05] MEDS: UROCIT-K 30 MEQ PO ×2 (08:04→19:52)
[2025-02-05] MEDS: PEPCID 20 MG PO ×2 (08:05→19:53)
[2025-02-05] MEDS: ELIQUIS 5 MG PO ×2 (08:05→19:53)
[2025-02-05] MEDS: NEURONTIN 100 MG PO ×3 (10:28→22:02)
[2025-02-05] MEDS: LIPITOR 40 MG PO (10:28)
[2025-02-05 11:36] VITALS: BP 110/64
--- NOTE | 2025-02-05 12:15 | W.PN.NEPH.PH ---
Today's Communication / Plan
-
Fluid restrict
Assessment/Plan
-
IMP:
Recurrent low grade fever
Weakness
Euvolemic hyponatremia
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
Essential hypertension
Chronic A-fib
TTE 06/25/2021 EF 60 to 65%
CAD status post LAD stenting
GERD/Ahmadi's esophagus
HLD
BPH
Renal calculi/uric acid type
Arthritis
Glaucoma-continue eyedrops
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
Atherosclerosis of the aorta
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
Multiple colonic polyps March 2024 seventeen 3 over 1 cm requiring Endo [id number] outpatient GI
h/o COVID 2m ago
Plan:
A/w recurrent fever and weakness
Hyponatremia, euvolemic
Serum osmolarity low at 266, initial U osmo is low 177 with U na 122(IVF)
repeat at 324, U na 44 suggest high ADH state-SIADH
sodium no change at 129 will dose smasca today
TSH and cortisol were okay
maintain fluid restriction 48 ounces per day
Sodium improved with Samsca
Okay for discharge from a renal standpoint with fluid restriction r
-
-
Date of Service: February 05, 2025
CC / HPI / ROS
-
Chief Complaint:
hyponatremia
History of Present Illness:
sodium up at 130 last evening but down to 129 this am
Bp high , no fever
Review of Systems:
no cp or sob
feels well and poor appetite
had bm today
Labs
-
Labs:
WBC 8.6 10^3/uL (4.8-10.8) 02/01/25 06:59
RBC 5.17 10^6/uL (4.70-6.10) 02/01/25 06:59
Hgb 16.0 g/dL (13.0-18.0) 02/01/25 06:59
Hct 45.8 % (39.0-52.0) 02/01/25 06:59
Plt Count 235 10^3/uL (130-400) D 02/01/25 06:59
Sodium 133 mmol/L (135-145) L 02/05/25 05:56
Potassium 4.6 mmol/L (3.5-5.1) 02/05/25 05:56
Chloride 98 mmol/L (98-107) 02/05/25 05:56
Carbon Dioxide 28 mmol/L (22-30) 02/05/25 05:56
BUN 13 mg/dl (9-20) 02/05/25 05:56
Creatinine 0.9 mg/dL (0.7-1.3) 02/05/25 05:56
eGFR > 60.00 02/05/25 05:56
Glucose 105 mg/dl (70-99) H 02/05/25 05:56
Calcium 8.8 mg/dl (8.4-10.2) 02/05/25 05:56
Albumin 3.8 g/dl (3.5-5.0) 01/30/25 12:47
Physical Exam
-
Vital Signs:
Vital Signs
Temp Pulse Resp BP Pulse Ox
98.0 F 97 16 110/64 97
02/05/25 11:36 02/05/25 11:36 02/05/25 11:36 02/05/25 11:36 02/05/25 11:36
Cardiovascular:: Regular rate and rhythm
Respiratory:: Bilateral: CTA
Lung Excursion:: Normal
Abdomen:: Nontender and Soft
Extremity Edema:: None: Bilateral:
[place] Catheter: No
[2025-02-05 14:31] VITALS: PULSE 86; O2SAT 96
[2025-02-05 15:25] VITALS: BP 101/63
--- NOTE | 2025-02-05 16:16 | CM ---
Reviewed the chart notes and spoke with the patient at the bedside. IMM reviewed. CM continues to be available to patient/family and is monitoring medical plan for needs at discharge.
Plan: Discharge to home with [facility] services.
[2025-02-05] MEDS: BENICAR 40 MG PO (18:37)
[2025-02-05 18:42] VITALS: BP 120/79
[2025-02-05] MEDS: XALATAN OPHTHALMIC SOLUTION 1 DROP BOTH EYES (22:02)
[2025-02-05 23:21] VITALS: BP 140/92
--- NOTE | 2025-02-06 07:38 | W.PN.HOSP.TC ---
Addendum entered and electronically signed by Aleshia Mir MD 02/07/25 20:59:
possible Extrapyramidal syndrome
Original Note:
Today's Communication/Plan
-
discharge
Assessment / Plan
Assessment / Plan
Physical Exam
General: No acute distress
HEENT: Normocephalic, Atraumatic, EOMI, MMM, left sided hearing noted better than right, no sinus tenderness
Respiratory: Clear to Auscultation bilaterally
Cardiac: Normal S1/S2, Regular Rate and Rhythm
GI: Soft, Nontender, Nondistended, Normal Bowel Sounds
Extremities: No Clubbing, Cyanosis, or Edema
Neuro: Alert Conversant Coherent, flat affect, intention tremors noted though improved from prior
Psych: Calm, Cooperative
79M hx diverticulitis, HTN, afib Eliquis, CAD stent, GERD/Ahmadi's esophagus, BPH, renal calculi, arthritis, glaucoma, squamous cell skin cancer, aortic atherosclerosis presenting with fever, weakness, nausea, diarrhea, weight loss, increased
urinary frequency, shuffling gait and falling. No travel history. No joint pain or rashes. Urinalysis unremarkable. CT Head 01/19 showed no acute intracranial abn's. Outpatient MRI abdomen showed 1.5 cm hemangioma in segment 5 of the right
hepatic lobe, 0.7 cm cystic lesion in the inferior pancreatic head, small renal cortical cyst. Left atrial enlargement. 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
#Recurrent low grade fever
UA negative, parasite smear negative
Recent CT of the abdomen and pelvis on 01/19 is negative for diverticulitis
Patient denies abdominal pain. Daughter reports nausea, diarrhea at home
Seen by GI, who have signed off, follow-up repeat stool cultures, last stool cultures on 01/19 were negative
1 out of 2 blood cultures growing diphtheroids�appreciate ID input, contaminant.
ID recommends monitoring off of antibiotics
Lyme neg
#Weakness
#Intention tremors present for weeks debilitating
PT/OT initially recommended short-term rehab since updated recommendations to Home Services
Neuro eval appreciated low dose neurontin started, outpt Datscan and neuropsych eval recommended
Brain MRI appreciated moderate cerebral and cerebellar volume loss w/ ex vacuo dilatation, moderate fluid LT mastoid air cells, severe mucosal dz Lt posterior ethmoid air cells, severe discogenic degenerative dz cervical spine
currently patient has no signs symptoms sinusitis, post-nasal drip, or nasal congestion
MRI findings and patient's clinical presentation were discussed with ENT who recommended outpt follow up
Tremors since improved with start neurontin, dose increased to TID
#Euvolemic hyponatremia
Sodium remains 120s despite fluid restriction
TSH and a.m. cortisol normal
Urine studies appreciated
Consult nephrology appreciated, continue fluid restriction, samsca 02/04/25
Sodium since improved 130s
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
Appreciate vascular surgery input, patient denies postprandial symptoms
Recommend outpatient follow-up
#Essential hypertension
Continue Benicar 40 mg p.o. daily with hold parameters, propranolol 180 mg daily
PO hydralazine titrated up to 75 mg PO BID
Blood Pressure Control since improved
#Chronic A-fib
TTE 06/25/2021 EF 60 to 65%
Continue amiodarone, Eliquis
#CAD status post LAD stenting 90% lesion
Continue Eliquis 5 mg twice daily, Lipitor 40 mg every afternoon, propranolol 180 mg daily, statin
#GERD/Ahmadi's esophagus
No current PPI listed
#HLD
Continue statin
#BPH
#Renal calculi/uric acid type
Continue Flomax 0.4 mg p.o. twice daily
Continue potassium citrate 15 mill equivalents p.o. twice daily
Other PMH:
Arthritis
Glaucoma-continue eyedrops
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
Atherosclerosis of the aorta
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
Multiple colonic polyps March 2024 seventeen 3 over 1 cm requiring Endo [id number] outpatient GI
DVT prophylaxis�Eliquis
DNR
Medically stable for discharge home with home services and outpatient follow up recommendations.
Discussed with patient and patient's daughters Sofi BRANHAM
Total Time Preparing Discharge ___40____ minutes including examination of the patient, summary of the hospital stay, instructions for continuing care to all relevant caregivers; and preparation of discharge records, prescriptions, and referral
forms if necessary.
Anticipated Discharge: Today
Subjective/Interval History
-
Date of Service: February 06, 2025
Seen and examined at bedside in no acute distress sitting up comfortably in chair.
Objective Data
-
Vital Signs:
Vital Signs
Temp Pulse Resp BP Pulse Ox
97.7 F 90 18 140/92 96
02/05/25 23:21 02/05/25 23:21 02/05/25 23:21 02/05/25 23:21 02/06/25 00:18
I&O
02/05/25 02/06/25 02/07/25
06:59 06:59 06:59
Intake Total 240 / 240 840 / 840
Output Total 450 / 450 700 / 700
Balance -210 / -210 140 / 140
[2025-02-06 07:50] VITALS: BP 139/96
[2025-02-06] MEDS: UROCIT-K 30 MEQ PO (08:41)
[2025-02-06] MEDS: PEPCID 20 MG PO (08:41)
[2025-02-06] MEDS: NEURONTIN 100 MG PO ×2 (08:41→16:05)
[2025-02-06] MEDS: LIPITOR 40 MG PO (08:41)
[2025-02-06] MEDS: ELIQUIS 5 MG PO (08:42)
[2025-02-06] MEDS: INDERAL LA 180 MG PO (08:42)
[2025-02-06] MEDS: APRESOLINE 75 MG PO (08:42)
[2025-02-06] MEDS: FLOMAX 0.8 MG PO (08:42)
[2025-02-06 10:11] VITALS: BP 106/65; PULSE 92; O2SAT 98
[2025-02-06 10:12] VITALS: BP 106/65; PULSE 92; O2SAT 98
--- NOTE | 2025-02-06 11:58 | W.PN.UPDATE ---
Update Note
Progress Note Update
renal sign off
--- NOTE | 2025-02-06 13:34 | CM ---
Reviewed the chart notes and spoke with the patient at the bedside. Patient for potential discharge today. Daughter will provide transportation. CM continues to be available to patient/family and is monitoring medical plan for needs at discharge.
Plan: Discharge to home with [facility] services.
--- NOTE | 2025-02-06 14:37 | W.DCSUMMARY ---
Discharge Summary
Discharge Data
Date of Admission: 01/30/25
Date of Discharge: 02/06/25
-
Pending Results: No
Discharge Plan
-
Patient Disposition: Home with Home Care
Discharge Diagnosis/Procedures: Recurrent low grade fever unclear etiology possibly viral vs bacterial infection since resolved
Essential Tremors
Suspected underlying dementia
Hyponatremia
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
Hypertension
Chronic Atrial Fibrillation
Coronary Artery Disease
GERD
Hyperlipidemia
BPH
Arthritis
Glaucoma
Atherosclerosis
Multiple colonic polyps March 2024
Condition: Fair
Diet: Low Cholesterol and Restrict fluids to 48 oz
Activity: As tolerated and With Walker
Driving Restrictions: No driving
Bathing Restrictions: None
Blood Work: Repeat BMP with primary care provider in 1 week of discharge
Others Tests: Ultrasound appointment 05/03 @ 9am
Follow up with neurology for outpatient DaTscan further evaluation suspected Dementia
Other Services: PT and OT
Activity Restrictions/Additional Instructions:
Follow up with primary care provider in 1 week of discharge and keep your appointment with vascular surgeon.
In 2-4 weeks of discharge follow up with ENT, neurology, and neuropsychiatry.
Pepcid prescribed for GERD
Hydralazine increased to 75 mg twice a day for better control of hypertension. Please keep a daily log of pressures at home to review with your primary care provider or blocker heated metal forms, in follow up, for further evaluation/treatment hypertension
Gabapentin prescribed for essential tremors.
Please take medications as prescribed/recommended and follow up with primary care provider and/or other healthcare provider involved in your care for refills and/or further adjustment to your medication regimen as necessary.
Referrals:
Chace Bonds MD [Family Provider, Family Practice] - in one week
Richar Tyler PSY [Specified Professional Personl, Psychiatry] - in two to four weeks
Rubio Murray MD [Active, Neurology] - in two to four weeks
Ceci Fowler MD [Active, Otology] - in two to four weeks
Umu Joy CRNP [Specified Professional Personl, Vascular Surgery] - 05/04/25 9:30 am
Referral Note: Vascular office follow up
Prescriptions:
New
famotidine 20 mg Tablet
20 mg PO BID Qty: 60 0RF
hydralazine 50 mg Tablet
75 mg PO BID Qty: 90 0RF
gabapentin 100 mg Capsule
100 mg PO TID Qty: 90 0RF
Continued
propranolol 60 mg capsule,extended release 24 hr
180 mg PO DAILY
tamsulosin 0.4 mg capsule
0.8 mg PO DAILY
olmesartan [Benicar] 40 mg Tablet
40 mg PO QPM
potassium citrate 15 mEq tablet extended release
30 meq PO BID
Lumigan 0.01 % Drops
1 drp BOTH EYES HS
Eliquis 5 mg Tablet
5 mg PO BID
acetaminophen 650 mg Tablet Extended Release
1,300 mg PO Q12H
atorvastatin [Lipitor] 40 mg Tablet
40 mg PO DAILY
Discontinued
hydralazine 25 mg Tablet
25 mg PO BID
Discharge Orders:
Discharge Patient (As Directed); Ordered 02/06/25
Ordered By: Aleshia Mir
Discharge Date and Time
Print Language: CHINESE
[2025-02-06 15:48] VITALS: BP 118/76
--- NOTE | 2025-02-07 13:08 | PN.CDI ---
CDI
- -
CDI:
Physician Documentation Request
Admit Date: 01/30/25 16:29
Dear Doctor Clarke,
Patient admitted with tremors.
02/04 Neuro Consult: 'Extrapyramidal syndrome...Avoid medications with dopamine blocking properties - OP Datscan and neuropsychological evaluation. - Start Neurontin 100 mg with titration as tolerated for symptomatic tremor relief'
Discharge Summary: 'Essential Tremors'
Please indicate in your progress notes if you are in agreement that the above diagnosis is valid for this patient:
____ - Extrapyramidal syndrome is a valid diagnosis (Please include it in your progress notes)
____ - Extrapyramidal syndrome is not a valid diagnosis for this patient
____ - Extrapyramidal syndrome is not yet confirmed but remains a suspected condition
____ - Other
Use of terms such as suspected, likely, concern for, or probable are acceptable for a diagnosis that is being evaluated, monitored or treated as if it exists and can be coded in the inpatient setting, when documented at the time of discharge.
Thank you,
Ofelia Manzanares RN, BSN
CDI Specialist
Available via [place] text
Please use your independent medical judgment in providing your response.
== END 2025-02-06 17:40 | disposition home health service (06) | DRG 57 ==
LOC: 2 NORTH 16:29
PROVIDERS: Family Medicine; Physician Assistant; Registered Nurse; ADMITTING PHYSICIAN Hospitalist; ATTENDING PHYSICIAN Internal Medicine; CONSULT PHYSICIAN Internal Medicine; CONSULT PHYSICIAN Internal Medicine Gastroenterology; CONSULT PHYSICIAN Internal Medicine Infectious Disease; CONSULT PHYSICIAN Psychiatry & Neurology Neurology; EMERGENCY PHYSICIAN Emergency Medicine; FAMILY PHYSICIAN Family Medicine; OTHER PHYSICIAN Nurse Practitioner
DX: G25.9 Extrapyramidal and movement disorder, unspecified (principal); E87.1 Hypo-osmolality and hyponatremia; K55.1 Chronic vascular disorders of intestine; I48.20 Chronic atrial fibrillation, unspecified; G93.40 Encephalopathy, unspecified; G25.0 Essential tremor; R50.9 Fever, unspecified; I25.10 Atherosclerotic heart disease of native coronary artery without angina pectoris; K21.9 Gastro-esophageal reflux disease without esophagitis; N40.0 Benign prostatic hyperplasia without lower urinary tract symptoms; M19.90 Unspecified osteoarthritis, unspecified site; H40.9 Unspecified glaucoma; Z86.0100 Personal history of colon polyps, unspecified; I10 Essential (primary) hypertension; E78.00 Pure hypercholesterolemia, unspecified; E86.1 Hypovolemia; K22.70 Barrett's esophagus without dysplasia; R29.6 Repeated falls; Z79.01 Long term (current) use of anticoagulants; Z79.899 Other long term (current) drug therapy; Z80.0 Family history of malignant neoplasm of digestive organs; Z85.828 Personal history of other malignant neoplasm of skin; Z86.16 Personal history of COVID-19; Z87.442 Personal history of urinary calculi; Z87.891 Personal history of nicotine dependence; Z88.0 Allergy status to penicillin; Z95.5 Presence of coronary angioplasty implant and graft; Z11.52 Encounter for screening for COVID-19
CPT/HCPCS: 70551; 80048; 80053; 81003; 82140; 82533; 82550; 82607; 83930; 83935; 84295; 84300; 84443; 85025; 85027; 86618; 87015; 87040; 87045; 87046; 87077; 87205; 87207; 87427; 87502; 87811; 93005; 97116; 97162; 97167; 97530; 97535; 99285; J1364

== ENCOUNTER 2025-02-13 21:03 | Emergency (ER) | payer MEDICARE, OTHER, SELFPAY ==
[2025-02-13 21:15] VITALS: BP 117/79
--- NOTE | 2025-02-13 22:34 | ED.GENMED ---
History of Present Illness
General
Chief Complaint: Catheter/Tube Problem
Source: patient and family (Daughter)
Time Seen by Provider: 02/13/25 21:57
Nursing documentation reviewed up to this point in time: agreed with
History of Present Illness
History of Present Illness:
Note:
CHIEF COMPLAINT(S)
Urinary retention and recent neurologic symptoms.
HISTORY OF PRESENT ILLNESS
The patient is a 79-year-old male with a history suggestive of a recent urinary tract infection. On presentation, the patient reported issues related to urinary retention, highlighted by his daughter, who noticed an increase in abdominal distention.
The patient is currently on Ciprofloxacin, responding well, but waiting for culture results to confirm the specific bacterium. There have been recurrent neurologic issues noticed by the patients daughter, which aligns with a previous admission where
he was found talking incoherently. A couple of days ago, on Wednesday, a urinary catheter was inserted, but it seemed incorrectly placed, according to the family. Recent measurements of his bladder showed a volume of only 15 milliliters of urine,
indicating low retention. The patient has been experiencing fevers over the last month, controlled currently with Tylenol administration.
ADDITIONAL HISTORY OBTAINED FROM SOURCES OTHER THAN THE PATIENT
Per the patients daughter, he was found to be talking incoherently and presented with symptoms such as urine in blood and issues with the urinary catheter.
CHRONIC MEDICAL CONDITIONS SIGNIFICANTLY AFFECTING CARE
Urinary Tract Infection: The patient is on Ciprofloxacin for treatment.
Salt Balance Issues: Monitored as advised by cardiology.
SOCIAL DETERMINANTS AFFECTING HEALTH
The patient�s ability to navigate the home environment is limited, as he cannot access the second floor, indicating a potential need for assistance in daily living activities. The patient currently has an aide for some of the time. His daughter has
decided that it is time to move him into an assisted living facility and has begun filling out the paperwork for a local facility.
MEDICATIONS
The patient is currently taking Ciprofloxacin and another unspecified blue medication for urinary issues, in conjunction with Tylenol for fever management.
PHYSICAL EXAM
-
Patient is awake alert and oriented x 3, in no acute distress. Answering questions appropriately.
Abdomen is soft, nontender, minimally distended. No organomegaly present. Good bowel sounds present.
Genitourinary: Velasco catheter in place. Volume in the bladder measured at 15 milliliters.
Nursing notes reviewed and vital signs reviewed.
PROBLEM LIST
Acute:
- Urinary retention
- Neurologic episodes
Chronic:
- Urinary tract infection
- Hyponatremia or salt balance issues
PLAN
- Initiate basic laboratory tests and administer fluids to assess urinary output.
- Monitor the patients neurologic status and consult neurology if necessary.
- Instruct on the continuation of Ciprofloxacin and adjust pending culture results.
- Consider further cardiology evaluation for salt balance issues.
DIFFERENTIAL DIAGNOSIS
The Differential Diagnosis includes, in no particular order and is not limited to:
Urinary Tract Infection
Electrolyte imbalance
Urinary obstruction
Hyponatremia
CARE-UPDATE
02/13/25 - 23:57
The patient reports feeling significantly improved. Plan to repeat the sodium level following completion of IV fluids. Velasco catheter remains in place and continues to drain effectively.
CARE-UPDATE
02/14/25 - 00:53
Discussed with the daughter the initiation of a new antibiotic regimen due to persistent UTI as indicated by lab results. Patient will maintain current course of antibiotics for mild urinary symptoms. Agreed to keep the Velasco catheter in situ until
further urological evaluation. Follow-up scheduled with urologist at [facility].
Disposition:
SUMMARY OF ENCOUNTER
The patient, a 79-year-old male, presented with hematuria noted through his newly placed Velasco catheter. There was an initial suspicion of improper placement due to the presence of blood, which was explained to the patient and his daughter as a
potential outcome of any Velasco catheter insertion. Upon the daughters concern about urine leaking around the catheter, the Velasco catheter was replaced and the patient tolerated the procedure well. Post-replacement, the catheter began draining
blood-tinged urine. The patient is currently on an antibiotic prescribed by his primary care provider and is scheduled for follow-up with an outpatient urologist. Importantly, the patient has a chronic issue of low sodium levels. In the emergency
department, 500 cc of fluids were administered, and his sodium level improved to 131.
DISPOSITION
Discharge
ASSESSMENT
The patient presented with issues related to urinary catheterization, ongoing hematuria, and low sodium levels.
REASSESSMENT
The patients sodium levels improved after fluid administration, indicating a positive response to treatment. He expressed no further questions and was agreeable to discharge following the visit.
PLAN
1. The Velasco catheter was successfully replaced, and monitoring for further complications, including hematuria, will continue under outpatient care. 2. The patient is advised to maintain his current antibiotic therapy as initiated by his primary
care provider. 3. Post-discharge, sodium levels need monitoring, with the patients daughter agreeing to ensure appropriate salt intake as previously advised.
FOLLOW-UP INSTRUCTIONS
The patient will follow up with an outpatient urologist as planned.
MEDICATION RECONCILIATION
The patient is currently taking an antibiotic prescribed by his primary care provider. (Exact name unspecified in transcript)
MEDICAL DECISION MAKING
-Complexity of Data Reviewed: Chronic conditions affecting care include urinary retention, recurrent urinary tract infection, hyponatremia, and neurologic episodes. Differential diagnosis includes urinary tract infection, benign prostatic
hyperplasia, neurological disorder or stroke, drug-induced delirium, electrolyte imbalance, heart failure, prostate cancer, renal failure, urinary obstruction, and hyponatremia-related encephalopathy.
-Data:
Category 1: Sodium levels were reviewed and monitored, improving with fluid administration. Clinical information was obtained from an independent historian, specifically the patients daughter, who provided additional details about his symptoms and
care.
Category 3: Discussion of management included communication with the patients primary care provider regarding ongoing treatment with antibiotics, and plans for follow-up with a urologist were confirmed.
-Risk: Prescription medication for ongoing UTI management was agreed upon, indicating continued care and necessary follow-up.
DIAGNOSIS
1. Hematuria (R31.9)
2. Urinary retention (R33.9)
3. Hyponatremia (E87.1)
Past History
Past History
ED Past Medical History: Arrthythmia
ED Past Surgical History: None
Social History
Tobacco: Non-smoker
Alcohol: None
Drug: None
Personal:
Living: with family
Phy Exam
Physical Exam
Physical Exam:
.
General Physical Exam
General Presentation: well appearing and mild distress
General age: appears stated age
General Skin: warm
General Habitus: elderly
General Mental: alert
General Hydration: appears well hydrated
Genitourinary Exam Male
Exam Male: circumcised, normal external genitalia, no evidence of trauma, no lesions and no testicular swelling
Neurological Exam
Neurological Exam: alert and oriented x3
Musculoskeletal Exam
Musculoskeletal Exam: full ROM, no edema and neuro vasc intact
Skin Exam
Skin Exam: normal color and warm/dry
Psychiatric Exam
Psychiatric Exam: normal mood/affect
Course
Orders/Labs/Results
Orders:
Orders
02/13/25 21:39
Lidocaine 2% [Lidocaine Uro-Jet 2%] 1 syringe .ROUTE .STK-MED ONE
02/13/25 22:17
Lidocaine 2% [Lidocaine Uro-Jet 2%] 1 syringe .ROUTE .STK-MED ONE
02/13/25 22:33
0.9% Sodium Chloride 500 ml [Nss] 500 ml IV BOLUS
02/13/25 22:45
Complete Blood Count/With Diff Urgent
Comprehensive Metabolic Panel Urgent
NT-proBNP Urgent
Troponin I Urgent
02/13/25 22:48
Urinalysis Reflex To Culture Urgent
Date Specimen was Collected: 02/13/25
Time Specimen was Collected: 22:46
Urine Microscopic Reflex Cult Urgent
Urine Culture Urgent
SERVANDO Source: U
Specimen Description:
Date Specimen was Collected: 02/13/25
Time Specimen was Collected: 22:46
02/13/25 23:56
Basic Metabolic Panel Urgent
Abnormal Lab Results
02/13/25 02/13/25 02/14/25
22:45 22:48 00:12
MCH 31.8 H pg
(27.0-31.0)
Abs Immat Gran (auto) 0.1 H 10^3/uL
(0-0.05)
Absolute Neuts (auto) 8.2 H 10^3/uL
(1.4-6.5)
Absolute Lymphs (auto) 0.7 L 10^3/uL
(1.2-3.4)
Absolute Monos (auto) 1.8 H 10^3/uL
(0.1-0.6)
Immature Gran % 0.6 H %
(0-0.5)
Neutrophils % 75.9 H %
(42.2-75.2)
Lymphocytes % 6.5 L %
(20.5-51.1)
Monocytes % 16.6 H %
(1.7-9.3)
Sodium 128 L mmol/L 131 L mmol/L
(135-145) (135-145)
Creatinine 0.6 L mg/dL 0.6 L mg/dL
(0.7-1.3) (0.7-1.3)
Glucose 115 H mg/dl 108 H mg/dl
(70-99) (70-99)
ALT 85 H U/L
(0-50)
Total Protein 5.7 L g/dl
(6.3-8.2)
Ur Occult Blood Reflex 4+ A
(Negative)
Leukocyte Esterase Rfl 1+ A
(Negative)
Urine RBC >100 A /HPF
(0-2)
Urine Bacteria (Reflex) Few A
(Negative)
Urine Albumin (Reflex) 3+ A
(Neg - Trace)
02/13/25 22:45
02/14/25 00:12
Vital Signs
Initial and Last Documented VS:
Initial Vital Signs
Temp Pulse Resp BP Pulse Ox
98.6 F 82 15 117/79 99
02/13/25 21:15 02/13/25 21:15 02/13/25 21:15 02/13/25 21:15 02/13/25 21:15
Last Documented Vital Signs
Temp Pulse Resp BP Pulse Ox
98.3 F 82 15 117/79 99
02/13/25 23:13 02/13/25 21:15 02/13/25 21:15 02/13/25 21:15 02/13/25 22:36
Procedures
Urinary Catheter
Procedure completed by: Myself
Type of urinary catheter: three way (CBI)
Catheter size (salvadorean): 20
Urine description: blood tinged
*Radiology
Radiology exam reviewed: other (Bladder scan 15 cc of fluid in the bladder)
*Pulse Oximetry
SaO2: 99
Oxygen Mode of Delivery: Room air
Patient hypoxic: no
*Critical Care Note
Total Time (30-74mins, 75-104mins- exclusive of procedures): Not Applicable
ED Attending Note
-
Portions of this chart may have been created with voice recognition software.� Occasional wrong word or��sound alike� substitutions may have occurred due to the inherent limitations of voice recognition software.
Discharge Plan
Departure
Patient Disposition: Home (Routine Discharge)
Date of Disposition: 02/14/25
Time of Disposition: 01:28
Patient with high blood pressure during this ER visit?: Yes
Condition: Good
Discharge Problem:
Hematuria, Complication, blocked Velasco catheter, Acute hyponatremia
Instructions: Blood in the urine (hematuria) in adults, How to Care for Your Velasco Catheter, Male, Hyponatremia, BLOOD PRESSURE
Prescriptions:
No Action
propranolol 60 mg capsule,extended release 24 hr
180 mg PO DAILY
tamsulosin 0.4 mg capsule
0.8 mg PO DAILY
olmesartan [Benicar] 40 mg Tablet
40 mg PO QPM
potassium citrate 15 mEq tablet extended release
30 meq PO BID
Lumigan 0.01 % Drops
1 drp BOTH EYES HS
Eliquis 5 mg Tablet
5 mg PO BID
acetaminophen 650 mg Tablet Extended Release
1,300 mg PO Q12H
atorvastatin [Lipitor] 40 mg Tablet
40 mg PO DAILY
famotidine 20 mg Tablet
20 mg PO BID Qty: 60 0RF
hydralazine 50 mg Tablet
75 mg PO BID Qty: 90 0RF
gabapentin 100 mg Capsule
100 mg PO TID Qty: 90 0RF
Referrals:
Chace Bonds MD [Family Provider, Family Practice]
Mario Moeller MD [Active, Urology] - As needed
Activity Restrictions/Additional Instructions:
Please continue to take your previously prescribed antibiotic.
Thank You for choosing [facility].
It was a pleasure meeting you and taking part in your care. We hope for your continued healing and wellness.
Please read discharge instructions in their entirety. However, they are for general education and may not describe your exact diagnosis at discharge. Information on your ER visit and medical conditions were discussed with you along with appropriate
follow up information...
If indicated, please take your medications as instructed and indicated on discharge paperwork.
Please schedule a follow up appointment as directed. Call to schedule an appointment
Please return to the emergency department with ANY change in, persisting, or worsening of symptoms. If any of your symptoms do not improve, or persist, or become more severe within 6-12 hours, please return to the emergency department for further
care.
Please return to the emergency department if you develop a headache, neck pain/stiffness, fever greater than 100.4F, chest pain, shortness of breath, persistent nausea, vomiting, slurred speech, difficulty walking, numbness/tingling, weakness, signs
of infection or any other symptoms that are worrisome to you.
If you have any questions or concerns please do not hesitate to call the Hospital at or E-mail me directly at [email or web address]
Interventions
Interventions:
*Risk Screen - Suicide Last Done: 02/13/25 21:15
*General Assessment Last Done: 02/13/25 21:15
*Neglect/Abuse Screening Last Done: 02/13/25 21:15
*ED COVID-19 Vaccine History Last Done: 02/13/25 21:15
AQ-Epxzrf-Zxbndbyexg Assessment Last Done: 02/13/25 22:00
ED-Male Genitourinary Assessment Last Done: 02/13/25 22:00
Discharge Date and Time
Print Language: CITIZEN OF [place]
[2025-02-13] MEDS: NSS 500 IV (22:48)
[2025-02-13 23:02] LABS: Hematocrit 45.1 % (39.0-52.0); Hemoglobin 16.0 g/dL (13.0-18.0); Mean Corp Hgb Conc. 35.5 g/dL (33.0-37.0); Mean Corpuscular Volume 89.7 fL (80.0-94.0); Nucleated Red Blood Cells % 0 % (-); Platelet Count 272 10^3/uL (130-400); Red Cell Dist. Width 14.0 % (11.5-14.5)
--- NOTE | 2025-02-13 23:06 | EDRN ---
On arrival, pt taken originally to protocol room 3 to exchange catheter. pt unable to ambulate, lifted from wheelchair with assistance of PCT.
Pt arrived with 18Fr Velasco and leg bag had minimal dark yellow urine in bag, bleeding around tip of penis, pt reports pain at penis and lower abdomen.
Original catheter was removed and 20Fr catheter was placed with assistance of second RN. Bogdan red blood drained, clots removed.
Catheter irrigated with sterile saline, saline leaking around catheter at tip of penis. 20Fr catheter removed, pt moved to ED Room 12.
Dr Hudson at bedside, pt bladder scanned for 15mL. 20Fr 3-way catheter placed by Dr Hudson, 50cc of bloody urine drained, irrigated with sterile saline. Pt reports relief of pain. Daughter updated on plan of care, call hanna within reach
[2025-02-13 23:11] LABS: ALT (SGPT) 85 U/L (0-50); AST (SGOT) 30 U/L (17-59); Albumin 3.6 g/dl (3.5-5.0); Alkaline Phosphatase 63 U/L (38-126); Blood Urea Nitrogen 16 mg/dl (9-20); Calcium 8.8 mg/dl (8.4-10.2); Carbon Dioxide 26 mmol/L (22-30); Chloride 101 mmol/L (98-107); Glucose 115 mg/dl (70-99); Potassium 4.6 mmol/L (3.5-5.1); Sodium 128 mmol/L (135-145); Total Protein 5.7 g/dl (6.3-8.2); eGFR > 60.00
[2025-02-13 23:13] LABS: Urine Character Slightly Cloudy (Clear)
[2025-02-13 23:19] LABS: Urine Red Blood Cell >100 /HPF (0-2); Urine Squamous Cell 0-2 /LPF (Few)
[2025-02-13 23:20] LABS: Urine White Cell 0-2 /HPF (0-5)
[2025-02-13 23:22] LABS: Troponin I < 0.012 ng/ml
[2025-02-14 01:18] LABS: Blood Urea Nitrogen 16 mg/dl (9-20); Calcium 8.5 mg/dl (8.4-10.2); Carbon Dioxide 25 mmol/L (22-30); Chloride 105 mmol/L (98-107); Glucose 108 mg/dl (70-99); Potassium 4.5 mmol/L (3.5-5.1); Sodium 131 mmol/L (135-145); eGFR > 60.00
== END 2025-02-14 02:00 | disposition home or self-care (01) ==
LOC: EMR 21:03
PROVIDERS: EMERGENCY PHYSICIAN Student in an Organized Health Care Education/Training Program; FAMILY PHYSICIAN Family Medicine
DX: T83.091A Other mechanical complication of indwelling urethral catheter, initial encounter (principal); R31.9 Hematuria, unspecified; R33.9 Retention of urine, unspecified; R14.0 Abdominal distension (gaseous); R50.9 Fever, unspecified; E87.1 Hypo-osmolality and hyponatremia; I48.91 Unspecified atrial fibrillation; I25.10 Atherosclerotic heart disease of native coronary artery without angina pectoris; I10 Essential (primary) hypertension; E78.5 Hyperlipidemia, unspecified; K57.90 Diverticulosis of intestine, part unspecified, without perforation or abscess without bleeding; K21.9 Gastro-esophageal reflux disease without esophagitis; M19.90 Unspecified osteoarthritis, unspecified site; H40.9 Unspecified glaucoma; Z79.01 Long term (current) use of anticoagulants; Z95.5 Presence of coronary angioplasty implant and graft; Z87.01 Personal history of pneumonia (recurrent); Z85.820 Personal history of malignant melanoma of skin; Z87.891 Personal history of nicotine dependence; Z88.0 Allergy status to penicillin
CPT/HCPCS: 99284; 51702; 51798; 80048; 80053; 81003; 81015; 83880; 84484; 85025; 87086

== ENCOUNTER 2025-02-16 10:28 | Emergency (ER) | payer MEDICARE, OTHER, SELFPAY ==
[2025-02-16 10:36] VITALS: BP 142/76
[2025-02-16 10:43] VITALS: BP 124/93; BMI 29.4
--- NOTE | 2025-02-16 10:43 | ED.GENMED ---
History of Present Illness
General
Chief Complaint: Catheter/Tube Problem
Source: patient
Exam Limitations: none
Time Seen by Provider: 02/16/25 10:33
History of Present Illness
History of Present Illness:
79-year-old male presents via EMS from home with urine leaking around his catheter. He was here couple days ago had his urinary catheter replaced. He has a recent history of hyponatremia and hematuria. Patient has no complaints otherwise
Past History
Past History
ED Past Medical History: Arrthythmia
ED Past Surgical History: None
Social History
Tobacco: Non-smoker
Alcohol: None
Drug: None
Personal:
Living: with family
Phy Exam
Physical Exam
Physical Exam:
General: Well-appearing male no acute respiratory distress
HEENT: Normocephalic atraumatic
Heart: Regular rate and rhythm
Lungs: Clear no wheeze
Abdomen is soft nontender nondistended
Extremities: no cyanosis or edema
Skin: warm, no rash
Course
Orders/Labs/Results
Orders:
Orders
02/16/25 10:51
Complete Blood Count/With Diff Urgent
Comprehensive Metabolic Panel Urgent
Abnormal Lab Results
02/16/25
10:51
MCH 31.1 H pg
(27.0-31.0)
Abs Immat Gran (auto) 0.1 H 10^3/uL
(0-0.05)
Absolute Neuts (auto) 7.4 H 10^3/uL
(1.4-6.5)
Absolute Lymphs (auto) 0.5 L 10^3/uL
(1.2-3.4)
Absolute Monos (auto) 1.0 H 10^3/uL
(0.1-0.6)
Immature Gran % 0.7 H %
(0-0.5)
Neutrophils % 82.5 H %
(42.2-75.2)
Lymphocytes % 5.8 L %
(20.5-51.1)
Monocytes % 10.6 H %
(1.7-9.3)
Sodium 129 L mmol/L
(135-145)
ALT 60 H U/L
(0-50)
Total Protein 5.1 L g/dl
(6.3-8.2)
Albumin 3.2 L g/dl
(3.5-5.0)
02/16/25 10:51
02/16/25 10:51
Vital Signs
Initial and Last Documented VS:
Initial Vital Signs
Pulse Ox
97
02/16/25 10:34
Last Documented Vital Signs
Temp Pulse Resp BP Pulse Ox
98.3 F 84 15 124/93 97
02/16/25 10:43 02/16/25 10:43 02/16/25 10:43 02/16/25 10:43 02/16/25 10:45
MDM/Problems Addressed
Differential Diagnosis Includes:
Patient states he had urine leaking around his catheter that was recently replaced. Upon inspection there is 15 cc of volume in the catheter. The hub calls for 30 cc. The balloon was drained the catheter was advanced and 30 cc of fluid was
inserted into the balloon. Urine tended to increase flow through the catheter at this time. Will check labs
*Pulse Oximetry
SaO2: 97
Patient hypoxic: no
*Critical Care Note
Total Time (30-74mins, 75-104mins- exclusive of procedures): Not Applicable
Update Note
Update Note:
Labs reviewed. Sodium 129 which is patient's baseline. Catheter has been functioning well since nursing staff adjusted it. Spoke with the patient's daughter. No indication for admission. Family come pick them up. Stable for discharge
ED Attending Note
-
Portions of this chart may have been created with voice recognition software.� Occasional wrong word or��sound alike� substitutions may have occurred due to the inherent limitations of voice recognition software.
Discharge Plan
Departure
Patient Disposition: Home (Routine Discharge)
Date of Disposition: 02/16/25
Time of Disposition: 12:58
Patient with high blood pressure during this ER visit?: No
Discharge Problem:
Complication of Velasco catheter
Instructions: How to Care for Your Velasco Catheter, Male
Prescriptions:
No Action
propranolol 60 mg capsule,extended release 24 hr
180 mg PO DAILY
tamsulosin 0.4 mg capsule
0.8 mg PO DAILY
olmesartan [Benicar] 40 mg Tablet
40 mg PO QPM
potassium citrate 15 mEq tablet extended release
30 meq PO BID
Lumigan 0.01 % Drops
1 drp BOTH EYES HS
Eliquis 5 mg Tablet
5 mg PO BID
acetaminophen 650 mg Tablet Extended Release
1,300 mg PO Q12H
atorvastatin [Lipitor] 40 mg Tablet
40 mg PO DAILY
famotidine 20 mg Tablet
20 mg PO BID Qty: 60 0RF
hydralazine 50 mg Tablet
75 mg PO BID Qty: 90 0RF
gabapentin 100 mg Capsule
100 mg PO TID Qty: 90 0RF
Referrals:
Chace Bonds MD [Family Provider, Family Practice]
Activity Restrictions/Additional Instructions:
Continue current treatment. Return here if needed
Interventions
Interventions:
*Risk Screen - Suicide Last Done: 02/16/25 10:43
*General Assessment Last Done: 02/16/25 10:43
*Neglect/Abuse Screening Last Done: 02/16/25 10:43
*ED- Fall Risk Assessment Last Done: 02/16/25 10:43
*ED COVID-19 Vaccine History Last Done: 02/16/25 10:43
PZ-Weimjl-Ihwymjgimv Assessment Last Done: 02/16/25 10:43
ED-Male Genitourinary Assessment Last Done: 02/16/25 10:43
Discharge Date and Time
Print Language: TAMAZIGHT
[2025-02-16 11:00] VITALS: BP 124/93
[2025-02-16 11:01] LABS: Hematocrit 42.2 % (39.0-52.0); Hemoglobin 14.6 g/dL (13.0-18.0); Mean Corp Hgb Conc. 34.6 g/dL (33.0-37.0); Mean Corpuscular Volume 89.8 fL (80.0-94.0); Nucleated Red Blood Cells % 0 % (-); Platelet Count 285 10^3/uL (130-400); Red Cell Dist. Width 14.2 % (11.5-14.5)
[2025-02-16 11:24] LABS: ALT (SGPT) 60 U/L (0-50); AST (SGOT) 23 U/L (17-59); Albumin 3.2 g/dl (3.5-5.0); Alkaline Phosphatase 68 U/L (38-126); Blood Urea Nitrogen 11 mg/dl (9-20); Calcium 8.6 mg/dl (8.4-10.2); Carbon Dioxide 25 mmol/L (22-30); Chloride 100 mmol/L (98-107); Estimated Creatinine Clearance 84 ml/min; Glucose 99 mg/dl (70-99); Potassium 4.4 mmol/L (3.5-5.1); Sodium 129 mmol/L (135-145); Total Protein 5.1 g/dl (6.3-8.2); eGFR > 60.00
[2025-02-16 12:00] VITALS: BP 139/85
[2025-02-16 14:50] VITALS: BP 159/94
[2025-02-16 15:04] VITALS: BP 159/94
== END 2025-02-16 15:04 | disposition home or self-care (01) ==
LOC: EMR 10:28
PROVIDERS: Physician Assistant; EMERGENCY PHYSICIAN Emergency Medicine; FAMILY PHYSICIAN Family Medicine
DX: T83.9XXA Unspecified complication of genitourinary prosthetic device, implant and graft, initial encounter (principal); Y92.9 Unspecified place or not applicable
CPT/HCPCS: 99283; 80053; 85025

== ENCOUNTER → 2025-02-19 18:15 | Outpatient (REF) | payer MEDICARE, OTHER, SELFPAY ==
[2025-02-19 18:44] LABS: ALT (SGPT) 54 U/L (0-50); AST (SGOT) 26 U/L (17-59); Albumin 3.9 g/dl (3.5-5.0); Alkaline Phosphatase 63 U/L (38-126); Blood Urea Nitrogen 10 mg/dl (9-20); Calcium 9.0 mg/dl (8.4-10.2); Carbon Dioxide 29 mmol/L (22-30); Chloride 98 mmol/L (98-107); Glucose 125 mg/dl (70-99); Potassium 3.8 mmol/L (3.5-5.1); Sodium 132 mmol/L (135-145); Total Protein 6.2 g/dl (6.3-8.2); eGFR > 60.00
== END ==
LOC: CLAB 18:15
PROVIDERS: ATTENDING PHYSICIAN Family Medicine
DX: E87.1 Hypo-osmolality and hyponatremia (principal)
CPT/HCPCS: 36415; 80053